=== PATIENT | female | born 1950 | race Caucasian/White ===

== ENCOUNTER 2017-07-16 09:04 | Inpatient (IN) | payer BC ==
[2017-07-16] MEDS ORDERED: NS 0.9% 1000 ML* 1,000 ML IV ONE (09:22)
[2017-07-16] MEDS ORDERED: Aspirin Low Dose CHEW TAB* 81 MG ONE (09:33)
[2017-07-16] MEDS ORDERED: Nitroglycerin TAB 0.4 MG* 0.4 MG TAB ONE (09:33)
[2017-07-16] MEDS ORDERED: VERAPAMIL 2.5 MG/ML 4 ML VIAL ONE (09:34)
[2017-07-16] MEDS ORDERED: Heparin 2 UNITS/ML IVPREMIX* 3,000 ML IV ONE (09:34)
[2017-07-16] MEDS ORDERED: Ticagrelor* 90 MG TAB PO ONE (09:34)
[2017-07-16] MEDS ORDERED: nitroGLYCERIN DRIP* 25,000 MCG/250 ML BTL ONE (09:34)
[2017-07-16] MEDS ORDERED: fentaNYL* 50 MCG/ML 2 ML VIAL (100 MCG VIAL) ONE (09:34)
[2017-07-16] MEDS ORDERED: Heparin(*) 1000 UNIT/ML 10 ML VIAL CATH LAB IV ONE (09:34)
[2017-07-16] MEDS ORDERED: Heparin for STEMI(*) 5,000 UNITS/ML 1 ML VIAL IV ONE ×2 (09:34→09:43)
[2017-07-16 09:35] LABS: Hematocrit 49 % (35-47); Hemoglobin 16.6 g/dl (12.0-16.0); Mean Corpuscular HGB Conc 34 g/dl (31-36); Mean Corpuscular Hemoglobin 31 pg (27-31); Mean Corpuscular Volume 91 fL (80-97); Mean Platelet Volume 9 um3 (7.4-10.4); Platelet Count 371 10^3/ul (150-450); Red Blood Count 5.43 10^6/ul (4.0-5.4); Red Cell Distribution Width 14 % (10.5-15); White Blood Count 25.2 10^3/ul (3.5-10.8)
[2017-07-16] MEDS ORDERED: Lidocaine 1% INJ* 10 MG/ML 30 ML SDV ONE (09:35)
[2017-07-16] MEDS ORDERED: Iohexol 350 (CONTRAST) 200 ML MDV IV ONE (09:35)
[2017-07-16] MEDS ORDERED: Midazolam* 1 MG/ML 10 ML VIAL (10 MG) ONE (09:35)
[2017-07-16] MEDS ORDERED: Aspirin Low Dose CHEW TAB* 81 MG PO ONE (09:42)
[2017-07-16 09:44] LABS: INR 1.07 (0.77-1.02)
[2017-07-16 10:02] LABS: EGFR Non-African American 39.5 (>60)
[2017-07-16] MEDS ORDERED: Iodixanol* (CONTRAST) 320 MG/ML 100 ML SDV ONE ×4 (10:08→12:07)
--- NOTE | 2017-07-16 10:19 | RAD ---
INDICATION: Weakness COMPARISON: May 07, 2017 TECHNIQUE: An AP portable view obtained at 0946 hours is submitted. FINDINGS: Bones/Soft Tissues: There are no acute bony findings. Chest leads project over the chest Cardiomediastinal: The cardiomediastinal silhouette is normal. Lungs: There are no infiltrates. Pleura: There are no pleural effusions. Other: None IMPRESSION: NO ACTIVE DISEASE.
[2017-07-16 10:57] LABS: ABS Basophils 0.1 10^3/ul (0-0.2); ABS Eosinophils 0.1 10^3/ul (0-0.6); ABS Lymphocytes 1.5 10^3/ul (1.0-4.8); ABS Monocytes 2.5 10^3/ul (0-0.8); ABS Nucleated RBC 0 10^3/ul; Eosinophil % 0.3 % (0-6); Lymphocyte % 5.9 % (25-47); Nucleated Red Blood Cells % 0
[2017-07-16] MEDS ORDERED: Metoprolol Tartrate IV* 1 MG/ML 5 ML VIAL ONE (11:34)
[2017-07-16] MEDS ORDERED: Nitroglycerin TAB 0.4 MG* 0.4 MG TAB SL PRN (12:48)
[2017-07-16] MEDS ORDERED: NS 0.9% 1000 ML* 1,000 ML IV SCH (13:00)
[2017-07-16] MEDS ORDERED: Metoprolol Tartrate TAB* 25 MG PO SCH (13:00)
--- NOTE | 2017-07-16 14:03 | ED ---
Archana Camacho Thomas, scribed for David Flores MD on 07/16/17 at 0910 . Complex/Multi-Sys Presentation - HPI Summary HPI Summary: The patient is a 66 year old female presenting to the ED complaining of nausea, vomiting, and fevers that began four days ago. This morning, the patient says I felt so weak I couldnt walk. My knees kept on buckling this morning. She complains of diarrhea that began yesterday. She denies any pain or urinary symptoms. She describes a similar episode in the past that was diagnosed as a UTI. She is accompanied by her son. - History Of Current Complaint Chief Complaint: EDNeurologicalDeficit Hx Obtained From: Patient Onset/Duration: Lasting Days - 4, Still Present Timing: Intermittent, Lasting: Alleviating Factor(s): None Associated Signs And Symptoms: Positive: Other - Nausea, vomiting, fevers, "couldn't walk"; NEGATIVE: pain, urinary symptoms - Allergies/Home Medications Allergies/Adverse Reactions: Allergies Allergy/AdvReac Type Severity Reaction Status Date / Time No Known Allergies Allergy Verified 05/07/17 10:30 Home Medications: Home Medications amLODIPine TAB* [Norvasc 5 mg TAB*] 5 mg PO DAILY 07/16/17 [History Confirmed ] PMH/Surg Hx/FS Hx/Imm Hx Previously Healthy: Yes Endocrine/Hematology History: Denies: Hx Diabetes Cardiovascular History: Denies: Hx Hypertension - Family History Known Family History: Negative: Hypertension, Diabetes - Social History Alcohol Use: None Hx Substance Use: No Substance Use Type: Reports: None Hx Tobacco Use: No Smoking Status (MU): Never Smoked Tobacco Review of Systems Positive: Fever Positive: Vomiting, Diarrhea, Nausea Negative: Other - pain Neurological: Other - "couldn't walk" All Other Systems Reviewed And Are Negative: Yes Physical Exam - Summary Physical Exam Summary: Appearance: The patient is well-nourished in no acute distress and in no acute pain. Skin: The skin is warm and dry and skin color reflects adequate perfusion. HEENT: The head is normocephalic and atraumatic. The pupils are equal and reactive. The conjunctivae are clear and without drainage. Nares are patent and without drainage. Mouth reveals dry mucous membranes and the throat is without erythema and exudate. The external ears are intact. The ear canals are patent and without drainage. The tympanic membranes are intact. Neck: the neck is supple with full range of motion and non-tender. There are no carotid bruits. There is no neck vein distension. Respiratory: Chest is non-tender. Lungs are clear to auscultation and breath sounds are symmetrical and equal. Cardiovascular: Heart is regular rate and rhythm. There is no murmur or rub auscultated. There is no peripheral edema and pulses are symmetrical and equal. Abdomen: The abdomen is soft and non-tender. There are normal bowel sounds heard in all four quadrants and there is no organomegaly palpated. Musculoskeletal: There is no back tenderness noted. Extremities are non-tender with full range of motion. There is good capillary refill. There is no peripheral edema or calf tenderness elicited. Neurological: Patient is alert and oriented to person, place and time. The patient has symmetrical motor strength in all four extremities. Cranial nerves are grossly intact. Deep tendon reflexes are symmetrical and equal in all four extremities. Psychiatric: The patient has an appropriate affect and does not exhibit any anxiety or depression. Triage Information Reviewed: Yes Vital Signs On Initial Exam: Initial Vitals BP 105/73 07/16/17 09:19 Vital Signs Reviewed: Yes Diagnostics - Vital Signs Vital Signs Temp Pulse Resp BP Pulse Ox 07/16/17 13:16 99.5 F 72 16 131/80 96 07/16/17 10:30 98.7 F 84 18 112/78 97 07/16/17 10:22 84 18 112/78 97 07/16/17 10:00 85 16 100 07/16/17 09:20 83 95 07/16/17 09:19 105/73 - Laboratory Lab Results: Lab Results 07/16/17 07/16/17 07/16/17 Range/Units 09:16 09:16 09:16 WBC 25.2 H (3.5-10.8) 10^3/ul RBC 5.43 H (4.0-5.4) 10^6/ul Hgb 16.6 H (12.0-16.0) g/dl Hct 49 H (35-47) % MCV 91 (80-97) fL MCH 31 (27-31) pg MCHC 34 (31-36) g/dl RDW 14 (10.5-15) % Plt Count 371 (150-450) 10^3/ul MPV 9 (7.4-10.4) um3 Neut % (Auto) 83.5 H (38-83) % Lymph % (Auto) 5.9 L (25-47) % King % (Auto) 10.0 H (1-9) % Eos % (Auto) 0.3 (0-6) % Baso % (Auto) 0.3 (0-2) % Absolute Neuts (auto) 21.0 H (1.5-7.7) 10^3/ul Absolute Lymphs (auto) 1.5 (1.0-4.8) 10^3/ul Absolute Monos (auto) 2.5 H (0-0.8) 10^3/ul Absolute Eos (auto) 0.1 (0-0.6) 10^3/ul Absolute Basos (auto) 0.1 (0-0.2) 10^3/ul Absolute Nucleated RBC 0 10^3/ul Nucleated RBC % 0 INR (Anticoag Therapy) 1.07 H (0.77-1.02) APTT (26.0-36.3) seconds Sodium 130 L (133-145) mmol/L Potassium TNP Chloride 95 L (101-111) mmol/L Carbon Dioxide 26 (22-32) mmol/L Anion Gap 9 (2-11) mmol/L BUN 35 H (6-24) mg/dL Creatinine 1.35 H (0.51-0.95) mg/dL Est GFR ( Amer) 50.8 (>60) Est GFR (Non-Af Amer) 39.5 (>60) BUN/Creatinine Ratio 25.9 H (8-20) Glucose 145 H (70-100) mg/dL Lactic Acid (0.5-2.0) mmol/L Calcium 10.5 H (8.6-10.3) mg/dL Total Bilirubin 0.80 (0.2-1.0) mg/dL AST TNP ALT 30 (7-52) U/L Alkaline Phosphatase 108 H (34-104) U/L Total Creatine Kinase 354 H (10-223) U/L CK-MB (CK-2) 17.1 H (0.6-6.3) ng/mL Troponin I 29.81 H* (<0.04) ng/mL C-Reactive Protein 214.34 H (< 5.00) mg/L B-Natriuretic Peptide ( - 100) pg/mL Total Protein 9.0 H (6.4-8.9) g/dL Albumin 4.2 (3.2-5.2) g/dL Globulin 4.8 H (2-4) g/dL Albumin/Globulin Ratio 0.9 L (1-3) LDL Cholesterol Direct 100 mg/dL 07/16/17 07/16/17 07/16/17 Range/Units 09:16 09:16 09:16 WBC (3.5-10.8) 10^3/ul RBC (4.0-5.4) 10^6/ul Hgb (12.0-16.0) g/dl Hct (35-47) % MCV (80-97) fL MCH (27-31) pg MCHC (31-36) g/dl RDW (10.5-15) % Plt Count (150-450) 10^3/ul MPV (7.4-10.4) um3 Neut % (Auto) (38-83) % Lymph % (Auto) (25-47) % King % (Auto) (1-9) % Eos % (Auto) (0-6) % Baso % (Auto) (0-2) % Absolute Neuts (auto) (1.5-7.7) 10^3/ul Absolute Lymphs (auto) (1.0-4.8) 10^3/ul Absolute Monos (auto) (0-0.8) 10^3/ul Absolute Eos (auto) (0-0.6) 10^3/ul Absolute Basos (auto) (0-0.2) 10^3/ul Absolute Nucleated RBC 10^3/ul Nucleated RBC % INR (Anticoag Therapy) (0.77-1.02) APTT 30.1 (26.0-36.3) seconds Sodium (133-145) mmol/L Potassium Chloride (101-111) mmol/L Carbon Dioxide (22-32) mmol/L Anion Gap (2-11) mmol/L BUN (6-24) mg/dL Creatinine (0.51-0.95) mg/dL Est GFR ( Amer) (>60) Est GFR (Non-Af Amer) (>60) BUN/Creatinine Ratio (8-20) Glucose (70-100) mg/dL Lactic Acid 2.0 (0.5-2.0) mmol/L Calcium (8.6-10.3) mg/dL Total Bilirubin (0.2-1.0) mg/dL AST ALT (7-52) U/L Alkaline Phosphatase (34-104) U/L Total Creatine Kinase (10-223) U/L CK-MB (CK-2) (0.6-6.3) ng/mL Troponin I (<0.04) ng/mL C-Reactive Protein (< 5.00) mg/L B-Natriuretic Peptide 189 H ( - 100) pg/mL Total Protein (6.4-8.9) g/dL Albumin (3.2-5.2) g/dL Globulin (2-4) g/dL Albumin/Globulin Ratio (1-3) LDL Cholesterol Direct mg/dL 07/16/17 Range/Units 10:50 WBC (3.5-10.8) 10^3/ul RBC (4.0-5.4) 10^6/ul Hgb (12.0-16.0) g/dl Hct (35-47) % MCV (80-97) fL MCH (27-31) pg MCHC (31-36) g/dl RDW (10.5-15) % Plt Count (150-450) 10^3/ul MPV (7.4-10.4) um3 Neut % (Auto) (38-83) % Lymph % (Auto) (25-47) % King % (Auto) (1-9) % Eos % (Auto) (0-6) % Baso % (Auto) (0-2) % Absolute Neuts (auto) (1.5-7.7) 10^3/ul Absolute Lymphs (auto) (1.0-4.8) 10^3/ul Absolute Monos (auto) (0-0.8) 10^3/ul Absolute Eos (auto) (0-0.6) 10^3/ul Absolute Basos (auto) (0-0.2) 10^3/ul Absolute Nucleated RBC 10^3/ul Nucleated RBC % INR (Anticoag Therapy) (0.77-1.02) APTT (26.0-36.3) seconds Sodium (133-145) mmol/L Potassium 3.5 Chloride (101-111) mmol/L Carbon Dioxide (22-32) mmol/L Anion Gap (2-11) mmol/L BUN (6-24) mg/dL Creatinine (0.51-0.95) mg/dL Est GFR ( Amer) (>60) Est GFR (Non-Af Amer) (>60) BUN/Creatinine Ratio (8-20) Glucose (70-100) mg/dL Lactic Acid (0.5-2.0) mmol/L Calcium (8.6-10.3) mg/dL Total Bilirubin (0.2-1.0) mg/dL AST 41 H ALT (7-52) U/L Alkaline Phosphatase (34-104) U/L Total Creatine Kinase (10-223) U/L CK-MB (CK-2) (0.6-6.3) ng/mL Troponin I (<0.04) ng/mL C-Reactive Protein (< 5.00) mg/L B-Natriuretic Peptide ( - 100) pg/mL Total Protein (6.4-8.9) g/dL Albumin (3.2-5.2) g/dL Globulin (2-4) g/dL Albumin/Globulin Ratio (1-3) LDL Cholesterol Direct mg/dL Result Diagrams: 07/16/17 09:16 07/16/17 10:50 Lab Statement: Any lab studies that have been ordered have been reviewed, and results considered in the medical decision making process. - Radiology CXR Xray Interpretation: No Acute Changes - NO ACTIVE DISEASE. Dr. Flores has reviewed this report. Radiology Interpretation Completed By: Radiologist - Additional Comments Diagnostic Additional Comments: EKG obtained at 09:20. Rate: 84 BPM. Impression: ST elevations with Q-wave formation in inferior and anterolateral leads. Probable acute inferolateral NE. Complex Multi-Symp Course/Dx Course Of Treatment: Ms. Dahl presented with 2-3 days of N/V and fevers. This AM she was so weak that she couldn't walk and had to be helped to the car by her sons. Her exam was unremarkable except that she looked dry and we began the W/U. The ecg revealed ST elevations with q waves inferiorly and also anteriorly to some extent. A STEMI was called and she then admitted to chest discomfort over the weekend. She was taken to the laboratory secretary by Dr. Leblanc. - Diagnoses Provider Diagnoses: STEMI (ST elevation myocardial infarction) - Physician Notifications Discussed Care Of Patient With: Denton Greenwood Time Discussed With Above Provider: 09:35 Instructed by Provider To: Other - Dr. Greenwood, interventional cardiology, came to the ED to assess the patient. I also consulted with Dr. Healy, hospitalist, who admits the patient to [facility] [place]. - Critical Care Time Critical Care Time: 30-74 min Discharge - Discharge Plan Condition: Stable Disposition: ADMITTED TO [facility] The documentation as recorded by the Archana morgan Thomas accurately reflects the service I personally performed and the decisions made by me, David Flores MD.
[2017-07-16 14:25] LABS: Hematocrit 43 % (35-47); Hemoglobin 14.4 g/dl (12.0-16.0); Mean Corpuscular HGB Conc 34 g/dl (31-36); Mean Corpuscular Hemoglobin 30 pg (27-31); Mean Corpuscular Volume 91 fL (80-97); Mean Platelet Volume 8 um3 (7.4-10.4); Platelet Count 328 10^3/ul (150-450); Red Blood Count 4.74 10^6/ul (4.0-5.4); Red Cell Distribution Width 13 % (10.5-15)
[2017-07-16 14:27] LABS: ABS Basophils 0.1 10^3/ul (0-0.2); ABS Eosinophils 0 10^3/ul (0-0.6); ABS Lymphocytes 2.3 10^3/ul (1.0-4.8); ABS Monocytes 2.2 10^3/ul (0-0.8); ABS Neutrophils 18.4 10^3/ul (1.5-7.7); ABS Nucleated RBC 0 10^3/ul; Eosinophil % 0.2 % (0-6); Lymphocyte % 10.1 % (25-47); Nucleated Red Blood Cells % 0.1
[2017-07-16] MEDS ORDERED: Ondansetron INJ* 2 MG/ML VIAL ONE (17:43)
[2017-07-16] MEDS: Atorvastatin* 80 MG TAB PO SCH (18:42)
[2017-07-16] MEDS: Metoprolol Tartrate TAB* 25 MG PO SCH (20:09)
[2017-07-17 00:41] LABS: Urine Appearance Clear; Urine Blood 2+ (Negative); Urine Color Yellow; Urine Ketones Trace (Negative); Urine Protein 1+(30 mg/dL) (Negative); Urine Specific Gravity > 1.060 (1.010-1.030); Urine Urobilinogen Negative (Negative)
[2017-07-17 06:14] LABS: EGFR Non-African American 90.2 (>60)
[2017-07-17] MEDS ORDERED: Lisinopril TAB* 5 MG PO SCH (09:00)
[2017-07-17] MEDS: Metoprolol Tartrate TAB* 25 MG PO SCH ×2 (09:16→20:34)
[2017-07-17] MEDS: Aspirin Low Dose CHEW TAB* 81 MG PO SCH (09:17)
[2017-07-17] MEDS ORDERED: Lisinopril TAB* 5 MG ONE (09:20)
[2017-07-17 09:38] LABS: Hematocrit 39 % (35-47); Hemoglobin 13.1 g/dl (12.0-16.0); Mean Corpuscular HGB Conc 33 g/dl (31-36); Mean Corpuscular Hemoglobin 30 pg (27-31); Mean Corpuscular Volume 91 fL (80-97); Mean Platelet Volume 8 um3 (7.4-10.4); Platelet Count 315 10^3/ul (150-450); Red Blood Count 4.32 10^6/ul (4.0-5.4); Red Cell Distribution Width 13 % (10.5-15); White Blood Count 17.1 10^3/ul (3.5-10.8)
[2017-07-17 09:42] LABS: ABS Basophils 0 10^3/ul (0-0.2); ABS Eosinophils 0.1 10^3/ul (0-0.6); ABS Lymphocytes 1.5 10^3/ul (1.0-4.8); ABS Monocytes 2.1 10^3/ul (0-0.8); ABS Neutrophils 13.4 10^3/ul (1.5-7.7); ABS Nucleated RBC 0 10^3/ul; Eosinophil % 0.4 % (0-6); Lymphocyte % 8.9 % (25-47); Nucleated Red Blood Cells % 0
[2017-07-17] MEDS ORDERED: Potassium Chlor TAB* 20 MEQ TAB.ER PO ONE (10:45)
[2017-07-17] MEDS: Enoxaparin(*) 40 MG/0.4 ML SYR SUBCUT SCH (12:50)
--- NOTE | 2017-07-17 15:34 | CONSULT ---
Consult Consult: CRITICAL CARE FOR MEDICINE CONSULT DATE: 07/17/17 TIME: [id number] PRIMARY CARE PROVIDER: Lamar REFERRING PROVIDER: Krystyna REASON/CHIEF COMPLAINT: persistent wbc post mi; medical management HISTORY OF PRESENT ILLNESS: 66 F presenting post cp on sunday, followed by Right sided weakness, brought in by ambulance on Sunday after son noticed mom leaning to the side sec to weakness. 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 attempts to revasculaize not prudent and optted for medical management. Today, further workup underway for likely cva prior to hospitalization as well. Pt tells me she never really had cp; but thought she may have had a chest cold or the flu. No rhinorhea. cough mild. no flu contacts. REVIEW OF SYSTEMS: As per HPI. PAST MEDICAL HISTORY: As per HPI. HTN. MEDICATIONS: Reviewed. ALLERGIES: Reviewed. SOCIAL HISTORY: Reviewed. works at [employer]. no tob. FAMILY HISTORY: Noncontributory at present. PHYSICAL EXAM: Vital Signs: Reviewed. Neurologic: awake, communicating. left arm 4/5 strength and left leg 3-4/5. further neuro exam defer as neuro just assessed prior. HEENT: anciteric. mmm Cardiovascular: reg, hr up to 90; no m or rub Respiratory: clear Abdomen: soft, nt; no masses Extremities: warm Access: piv LABS: Reviewed. IMAGING: Reviewed. MEDICATIONS: Reviewed. 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 mri being obtain. last known neuro well was Sunday at best. on asa already. neuro workup. consider liliana, especially if MRI pos. d/w pt. Cardiovascular: no cp. perfusing. vol status ok. f/u any post mi syndromes. no signs pericarditis etc but clincal follow. rx adjustments per cards. Respiratory: no consolidation. RA Gastrointestinal: po Renal/Metabolic: stable. Infectious Disease: no seeming infective burden. ua neg. no other pains nor skin breakdown. mild mono shift. no B sx. may be worthwhile to check flu screen but no abx needs present nor further testing at this time other then follow for fever and check wbc tomorrow. Hematology: stbale. anti-plt; anticoag needs per cards/neuro. Endocrine: statin needs. Musculoskeletal: oob. Psych/Social: pt in good spiritis. Supportive and preventative care as ordered. Disposition: ICU today and likely floor tomorrow Code Status: Full Critical Care Time: 35min Dixie Nettles DO
--- NOTE | 2017-07-17 16:22 | HP ---
CC: Dr. Florence Newton* ADMISSION HISTORY AND PHYSICAL: DATE OF ADMISSION: 07/16/17 CHIEF COMPLAINT: The patient presents, brought in by son with weakness, called by emergency room physician for possible STEMI. HISTORY OF PRESENT ILLNESS: The patient is a 66-year-old female with no prior known cardiac history. Specifically, she denies any history of myocardial infarction, congestive heart failure, significant heart rhythm disturbance. The patient states that last week, she had intermittent chest discomfort on and off, feeling somewhat like a pressure feeling, brief in nature until Sunday of last week when she had the symptoms waxing and waning, but constantly present for at least 5 hours if not more. At the end of that and on Sunday, she felt extremely weak, unable to physical get up and about. She did not drink or eat well. On Sunday, she was still weak and on Sunday, when her son saw her, he brought her to the emergency room. They then did an EKG, which showed Q waves in the inferior leads with ST-segment elevation in the inferior leads in V4 through V6 with some reciprocal change in V2. A STEMI alert was called. It should be noted she denied any specific chest, throat, jaw, or arm discomfort at that time. She had no significant shortness of breath or nausea or vomiting. I came to see her and she indeed had the abnormal EKG with persistent ST-segment elevations. An echocardiogram bedside was performed that showed the hypokinesis to the inferoposterior wall that seemed to be not as bad as the diffuse disease on the EKG. Cardiac enzymes revealed a troponin of 29.8 with a total CPK of 354 and an MB of 17. SGOT was 65. Discussion was made regarding the presence of this abnormal EKG with ongoing persistent ST elevation and abnormal cardiac enzymes, and decision was made to proceed with cardiac catheterization to at least define the anatomy to rule out the presence of a critical stenosis with patent flow present versus a total occlusion from a recent infarct. The risks and benefits were explained to her and her son. She understood and wished to proceed. She was given heparin 4000 units bolus in the emergency room and full-dose aspirin. PAST MEDICAL HISTORY: Includes hypertension. She denies any diabetes, hyperlipidemia. ALLERGIES: No known drug allergies. FAMILY HISTORY: She has a family history of mother with an DC in her 50s. SOCIAL HISTORY: She did not smoke. REVIEW OF SYSTEMS: Brief with regard to proceeding emergently to the cardiovascular laboratory included no history of hematochezia, hematemesis, or hematuria. No history of kidney disease. No history of allergy to dye. No recent stroke or TIA. PHYSICAL EXAMINATION VITAL SIGNS: reveal blood pressure 105/73, pulse 80, respirations 16, O2 saturation 100%. HEENT: Conjunctivae were pink. Sclerae clear. Mouth revealed moist mucosa. NECK: Supple without increased JVP. Carotid with good upstroke and volume. There were no bruits or transmitted murmur. LUNGS: Revealed no accessory muscle usage. There were no active rales, rhonchi , or wheezes. HEART: Revealed no visible heaves. No palpable heaves or thrills. Regular rate and rhythm were noted. No significant systolic or diastolic murmur. ABDOMEN: Soft, nontender. EXTREMITIES: Without edema. Femoral pulses were present bilaterally without bruits. Distal pulses were mildly diminished but present. NEURO: The patient is alert, oriented with normal mentation. PSYCHOLOGICAL: The patient with normal affect. DIAGNOSTIC STUDIES/LAB DATA: Laboratory results revealed BUN and creatinine of 35 and 1.35 with a GFR of 50.8, potassium was 3.5, sodium 130. The cardiac enzymes were as mentioned above. White count was 25,000, hemoglobin and hematocrit were 16.6 and 49, platelet count was 371,000. EKG was as mentioned with sinus rhythm, heart rate 84, TN interval 0.16, QRS 0.09, QT 0.38, axis is -48 degrees. There were Q waves in II, III, aVF with some preserved R wave in lead II. There was mild J point elevation in II, III, aVF. Mild ST-segment depression in V2 and mild J point elevation seen in V5 and V6. Chest x-ray revealed the heart size to be normal. No infiltrates noted. No pleural effusion. Echocardiogram suggested regional wall motion abnormalities to the inferior low posterolateral wall with an EF quoted by Dr. Singh of 35% to 40%. There was reported [id number] mitral regurgitation with diastolic dysfunction. She was noted to have septal hypertrophy without increased gradient across the valve. OVERALL ASSESSMENT: Angela presents now, very weak in nature complaining about history of recent chest discomfort albeit none currently today with an EKG with persistent ST-segment elevation and troponin level that is elevated. At this point in time, the risks and benefits were explained to her for proceeding with cardiac catheterization to delineate the anatomy and see the exact nature of her CAD. Further management will be made pending the results of cardiac catheterization. [id number]/[facility] #: [id number] JUAN MANUEL
--- NOTE | 2017-07-17 17:09 | RAD ---
HISTORY: Left-sided weakness and new onset incontinence COMPARISONS: CT of the brain May 07, 2017 that demonstrates evidence of microvascular disease as well as chronic appearing bilateral basal ganglia infarctions. TECHNIQUE: The following sequences were obtained of the head: Sagittal T1-weighted images, axial T2-weighted images, axial FLAIR images, axial susceptibility weighted images, axial T1-weighted images. Additionally, axial diffusion-weighted images were obtained with calculated apparent diffusion coefficients.. FINDINGS: HEMORRHAGE/INFARCT: There is no hemorrhage or acute infarct. MASSES/SHIFT: There is no mass or shift. EXTRA-AXIAL SPACES/MENINGES: There are no extra-axial fluid collections. SULCI AND VENTRICLES: The sulci and ventricles are normal in size and position for the patient's stated age. CEREBRUM: At the right temporal lobe (axial image 13) there is a focal hyperintensity on diffusion-weighted imaging. There are scattered diffusion-weighted image hyperintense subcentimeter foci at the right of midline precentral gyrus. The bilateral occipital lobes as well as scattered in the cortex of the right frontal lobe. Similar to findings on the prior CT of the brain there is subcortical and periventricular T2 bright hyperintensity including 2 large foci at the bilateral basal ganglia without corresponding signal on diffusion-weighted imaging indicating chronic vascular disease. BRAINSTEM: There are no focal parenchymal abnormalities. CEREBELLUM: On the diffusion-weighted imaging there is a punctate hyperintensity in the right cerebellar lobe (axial image 7 of 27). The cerebellar tonsils are normal in size and position. SELLA: The sella is normal. PINEAL: The pineal region is clear. CP ANGLE/TEMPORAL BONES: The labyrinthine structures are grossly normal. VESSELS: Normal flow-voids are noted within the visualized vertebral vasculature. DIFFUSION ABNORMALITIES: There are no diffusion abnormalities. PARANASAL SINUSES/MASTOIDS: The paranasal sinuses are clear. ORBITS: The orbits are unremarkable. BONES AND SOFT TISSUE: No bone or soft tissue abnormalities are noted. IMPRESSION: 1. MRI FINDINGS ARE CONSISTENT WITH ACUTE MULTIFOCAL EMBOLI INVOLVING THE RIGHT CEREBELLUM AND BILATERAL CEREBRAL HEMISPHERES DESCRIBED ABOVE. 2. EVIDENCE OF CHRONIC MICROVASCULAR DISEASE AND BILATERAL BASAL GANGLIA INFARCTIONS ARE ALSO AGAIN NOTED.
--- NOTE | 2017-07-17 18:05 | RAD ---
CPT II Codes: 3100F INDICATION: Cerebrovascular accident COMPARISON: Same day MRI of the brain that shows evidence of bilateral multifocal microemboli. TECHNIQUE: Multiple breaux scale, color and doppler tracings of the common, internal and external carotid and vertebral arteries were obtained. Stenosis estimations reflect velocity criteria that have been correlated to angiographic stenosis calculations based on the distal internal carotid diameter. Right carotid: There is mostly low echogenicity plaque within the right carotid bulb. The peak systolic velocity in the proximal right internal carotid artery is 160 cm/s and the maximum end-diastolic velocity is 68 cm/s. The peak systolic velocity in the distal common carotid artery is 60 cm/s and the maximum end-diastolic velocity is 21 cm/s. The internal to common carotid ratio is 2.41. This would be consistent with a 50-69% stenosis. Left carotid: There is moderate mixed echogenicity plaque within the left carotid bulb. The peak systolic velocity in the proximal right internal carotid artery is 71 cm/s and the maximum end-diastolic velocity is 33 cm/s. The peak systolic velocity in the distal common carotid artery is 70 cm/s and the maximum end-diastolic velocity is 23 cm/s. The internal to common carotid ratio is 1.01. This would be consistent with a less than 50% stenosis. Vertebrals: There is antegrade flow in both vertebral arteries. IMPRESSION: There is a mostly low echogenicity plaque at the bilateral carotid bulbs with flow velocity consistent with 50-60% degree stenosis on the right.
[2017-07-17] MEDS: Atorvastatin* 80 MG TAB PO SCH (18:41)
--- NOTE | 2017-07-17 19:50 | CONS ---
CONSULTATION REPORT: DATE OF CONSULTATION: 07/17/17 LOCATION: Current location is ICU bed 8. ADMITTING PHYSICIAN: Denton Greenwood MD PRIMARY CARE PHYSICIAN: Florence Newton MD OTHER PROVIDER: Herb Carson MD REASON FOR CONSULTATION: Left-sided weakness and new MS. HISTORY OF PRESENT ILLNESS: Ms. Dahl is a 66-year-old female who notes a history of hypertension, but denies a history of hyperlipidemia, diabetes, prior heart attacks or strokes. She was previously on no medications at home. She states to me that the week before admission, she was having some generalized weakness and also some intermittent chest pressure and tightness. She denied any jaw claudication. She denied any left arm pain. The symptoms persisted last week until Sunday when she noted that the chest pain was more persistent in nature. Again, noted a tightness or pressure in her chest. No distinct pain and no left arm or jaw symptoms. On Sunday, she states that she felt more weak, continued to have some chest tightness and pressure and also reports noticing weakness in her left foot. When I pressed her further, she states that she actually had been having weakness in the left leg over the last week. She denied any left arm weakness. She denied any sensory changes in her arms or legs bilaterally. She denied any right-sided findings. She states that she lives with her 2 sons. There was no report of any facial droop. She had no speech changes, swallowing changes. No vision loss or vision changes including double vision. No headaches. She did state over the last few days that she felt like she had the flu with some vomiting and diarrhea, but denied any fevers. She denied any falls, although she states that she was tripping with her left leg weakness when she tried to walk. She denies any back pain or radiating pain in her leg. Per the ER records, she had previously had an episode where she felt very globally weak and apparently was treated for a urinary tract infection at that time. She presented to the ER yesterday initially feeling very weak. It was noted at that time after a lab work was done that she had ST elevations on her EKG with elevated troponin. She was admitted, eventually taken to the director of labor relations by Dr. Greenwood who found no stentable arteries and no intervention was done at that time. Since that time, she states that her chest tightness is better. She continues to have left-sided weakness, but no other new symptoms. She notes to me that she is feeling slightly better today. Lab work done in the ER yesterday did show an elevated white count of 25.2, subsequently improved this morning to 17.1 with a left shift. Initial chemistry indicated a total creatine kinase of 258; CK-MB of 14 ; troponin I of 23.06, which has trended down today to 21.93. Her complete metabolic profile this morning is significant for potassium of 3.3, glucose of 28.8, lactic acid of 106, total bili of 1.10. Her CK-MB this morning of 8.7. She did have a CT of the head done back on 05/07/17. I did personally review the films. 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 I agree with that finding. At that time , she was seen in the ER stating that she had been ambulating slower than usual and also had been leaning to the left. She was treated for urinary tract infection at that time and sent home. PAST MEDICAL HISTORY: As noted above, she denies any history of diabetes, hypercholesterolemia. She does note a history of high blood pressure. She denies any prior strokes. Despite the CT findings, she denies any prior cardiac issues. MEDICATIONS: Medication at home: Amlodipine 5 mg daily. Current medications in the hospital: 1. She is on aspirin 81 mg daily. 2. Lipitor 80 mg daily. 3. Lovenox 40 mg subcutaneous q.24 hours. 4. Lisinopril 2.5 mg daily. 5. Metoprolol 25 mg p.o. b.i.d. 6. Nitroglycerin p.r.n. ALLERGIES: No known drug allergies. FAMILY HISTORY: Negative for diabetes, hypertension, strokes. SOCIAL HISTORY: She denies any tobacco, alcohol, or drug use. 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 REVIEW OF SYSTEMS: Review of systems in 14 organ systems was done. Pertinent positives and negatives as noted above, otherwise negative. PHYSICAL EXAMINATION: Vital Signs: Blood pressure 95/68 to 101/71, heart rate in the 70s to 80s, respiratory rate 16 to 25, O2 sats 96 to 97%. In general, she is a well-nourished, well-developed female. She is thin. She is lying in her hospital bed watching TV. She is pleasant, well dressed, well groomed. HEENT: She is normocephalic/atraumatic. Sclerae are anicteric. Mucous membranes are slightly dry. Oropharynx is clear. Nares are patent. Neck is supple. No thyromegaly. No carotid bruits. No meningismus. Her chest is clear to auscultation bilaterally. Cardiovascular: Regular rate and rhythm. No murmurs appreciated. Abdomen is nontender, nondistended. Extremities: There is no significant clubbing, cyanosis, or edema. Her skin is warm and dry without any significant lesions. On neurologic exam, she is awake, alert, oriented x3. Her speech is fluent. There is no dysarthria. Repetition is intact. Recall of recent and remote events is intact. Vocabulary is intact. Her mood is concerned. Affect mood congruent. Cranial nerves II through XII, pupils are equal, round, and reactive to light, extraocular muscles are intact, visual peoples are full to confrontation. Her facial sensation is intact throughout. She does have mild left nasolabial fold flattening. Otherwise, symmetry in the upper face is preserved. Hearing is intact bilaterally to finger rub. Tongue is midline. Palate raises symmetrically. Sternocleidomastoid and trapezius are both intact and symmetric. Motor Exam: She spontaneously moves all extremities antigravity with 5/5 strength in the right upper and right lower extremities throughout. On the left side, she has 4 +/5 weakness proximally and distally with drift in the upper extremity. She has 4/5 weakness proximally in the left lower extremity, 4+/5 weakness in the left lower extremity distally with drift as well. Tone and bulk are both normal. Sensation is intact to all modalities. She has no neglect. Her reflexes are 1+ and symmetric on the right upper extremity biceps, brachioradialis; 2+ on the left upper extremity biceps, brachioradialis; 1+ at the right patella; trace at the ankle; downgoing Babinski on the right; 2+ patella; 1+ ankle; upgoing Babinski on the left. [id number] and rapid alternating movements were intact on the left, difficult on the right with slow rapid alternating movements. There was no tremor noted either at rest or with movement. Her gait was not tested at this time. LABORATORY DATA: Lab work, as noted above this morning. Complete metabolic profile significant for total bili of 1.10, glucose of 106, BUN and creatinine ratio of 28.8, potassium of 3.3. Her troponins and CKs are trending down. Her LDL cholesterol on admission of 100. Prior TSH of 2.81 in May 2017. IMAGING: No brain imaging has been done at this point. She had an echocardiogram done yesterday. Report was reviewed. Conclusions: Multiple regional wall motion abnormalities, the estimated ejection fraction is 35% to 40 %, hyperdynamic anterior and anteroseptal segments, hypokinetic posterior and posterolateral segments, severely hypokinetic to dyskinetic segments of the inferior wall, abnormal left ventricular diastolic filling is observed consistent with impaired relaxation, there is mild to moderate mitral regurg, chordal systolic anterior motion is visualized, the right ventricular global systolic function is mildly reduced, the estimated ejection fraction is 35 to 40 %. ASSESSMENT AND PLAN: Ms. Dahl is a 66-year-old female with a known history of hypertension, on amlodipine at home. Denies a history of diabetes, hypercholesterolemia, prior heart attacks or strokes, although review of her previous CT from May 2017 seems to show some chronic strokes of which the patient was unaware. Interestingly, the patient was seen in the ER back in May 2017. At that time, she was "leaning to the left more." She came to the hospital yesterday after developing some chest pain last week, which became more persistent last Sunday. Sunday, she noted generalized weakness, but felt more weak on the left, but on further questioning states that she felt weak on the left side throughout the week prior. She subsequently underwent cardiac catheterization, but there were no stentable arteries and no intervention was done. Since that time, she has been started on aspirin and statin. On examination, she does have focal left-sided findings that are suggestive of a stroke. Whether or not this is a new stroke or old stroke given her prior history from May is unclear to me. She notes some generalized weakness and left-sided weakness. It is unclear how long this left- sided weakness has been ongoing. She certainly could have a masking of old symptoms from a prior stroke, but given the acute presentation, I worry about a new stroke. I recommend the followin. Continue aspirin 81 mg daily. 2. We will obtain an MRI of the brain without contrast to look for evidence of new stroke. 3. Carotid ultrasound at this point. She had a cardiac catheterization with dye yesterday, so I do not want to get a CT angiogram today, we can consider one tomorrow. 4. Blood pressure control per Cardiology. 5. Cholesterol control. Goal LDL less than 70. She is now on statin. 6. No evidence of diabetes. 7. Nonsmoker. 8. Once she is stable from a cardiac perspective, we can start physical therapy , occupational therapy, and rehab as necessary. 9. Continue to monitor on telemetry. She has no history of atrial fibrillation , but we will watch for any arrhythmias, which could ultimately change coordinator down the line. I will continue to follow her closely and make further recommendations as necessary. Thank you for the opportunity to participate in the care of this patient. I did speak directly with Dr. Greenwood about my findings in the case. [id number]/[facility] #: [id number] JUAN MANUEL
[2017-07-18 06:23] LABS: ABS Basophils 0.1 10^3/ul (0-0.2); ABS Eosinophils 0.1 10^3/ul (0-0.6); ABS Monocytes 1.5 10^3/ul (0-0.8); ABS Neutrophils 8.3 10^3/ul (1.5-7.7); ABS Nucleated RBC 0 10^3/ul; Hematocrit 36 % (35-47); Hemoglobin 11.9 g/dl (12.0-16.0); Lymphocyte % 16.5 % (25-47); Mean Corpuscular HGB Conc 33 g/dl (31-36); Mean Corpuscular Hemoglobin 30 pg (27-31); Mean Corpuscular Volume 93 fL (80-97); Mean Platelet Volume 8 um3 (7.4-10.4); Nucleated Red Blood Cells % 0; Platelet Count 327 10^3/ul (150-450); Red Blood Count 3.92 10^6/ul (4.0-5.4); Red Cell Distribution Width 13 % (10.5-15)
[2017-07-18 06:38] LABS: EGFR Non-African American 93.4 (>60)
[2017-07-18] MEDS: Aspirin Low Dose CHEW TAB* 81 MG PO SCH (08:46)
[2017-07-18] MEDS: Metoprolol Tartrate TAB* 25 MG PO SCH ×2 (08:46→21:13)
--- NOTE | 2017-07-18 09:09 | PN ---
Subjective Date of Service: 07/18/17 Interval History: Overnight, no new issues. She denies any new weakness, remains somewhat weak in the left lower greater than upper extremity. Denies any problems swallowing or speaking. STUDIES: 1. MRI Brain: I personally reviewed MRI findings which show bilateral embolic small strokes in the right cerebellum and bilateral hemispheres 2. Cartotid U/S shows low ecjhogenic plaque at bilateral bulbs and stenosis in 50-60 range on the right Objective Active Medications: Aspirin (Aspirin Low Dose Tab*) 81 mg PO DAILY [facility] Last Admin: 07/18/17 08:46 Dose: 81 mg Atorvastatin Calcium (Lipitor*) 80 mg PO 1700 [facility] Last Admin: 07/17/17 18:41 Dose: 80 mg Enoxaparin Sodium (Lovenox(*)) 40 mg SUBCUT Q24H [facility] Last Admin: 07/17/17 12:50 Dose: 40 mg Metoprolol Tartrate (Lopressor Tab*) 25 mg PO BID [facility] Last Admin: 07/18/17 08:46 Dose: 25 mg Nitroglycerin (Nitroglycerin Tab 0.4 Mg*) 0.4 mg SL Q5M PRN PRN Reason: ANGINA Vital Signs 07/17/17 07/17/17 07/17/17 09:30 10:00 10:01 Temperature Pulse Rate 89 77 82 Respiratory 13 15 Rate Blood Pressure 139/82 109/77 (mmHg) O2 Sat by Pulse 96 95 95 Oximetry 07/17/17 07/17/17 07/17/17 10:30 11:00 11:01 Temperature Pulse Rate 77 76 76 Respiratory 15 17 14 Rate Blood Pressure 102/69 105/73 (mmHg) O2 Sat by Pulse 96 96 96 Oximetry 07/17/17 07/17/17 07/17/17 11:25 11:30 12:00 Temperature 99.2 F Pulse Rate 85 80 Respiratory 27 16 Rate Blood Pressure 110/71 105/73 (mmHg) O2 Sat by Pulse 96 98 Oximetry 07/17/17 07/17/17 07/17/17 12:01 12:30 13:00 Temperature Pulse Rate 84 76 76 Respiratory 21 22 19 Rate Blood Pressure 104/72 104/73 (mmHg) O2 Sat by Pulse 97 97 97 Oximetry 07/17/17 07/17/17 07/17/17 13:01 13:30 14:00 Temperature Pulse Rate 77 76 83 Respiratory 16 25 20 Rate Blood Pressure 95/68 101/71 (mmHg) O2 Sat by Pulse 97 96 97 Oximetry 07/17/17 07/17/17 07/17/17 14:01 14:30 15:00 Temperature Pulse Rate 86 84 85 Respiratory 20 19 16 Rate Blood Pressure 107/71 101/67 (mmHg) O2 Sat by Pulse 97 96 97 Oximetry 07/17/17 07/17/17 07/17/17 15:01 15:30 17:00 Temperature Pulse Rate 84 93 Respiratory 17 20 19 Rate Blood Pressure 116/75 (mmHg) O2 Sat by Pulse 97 98 Oximetry 07/17/17 07/17/17 07/17/17 17:09 17:10 17:30 Temperature Pulse Rate 85 Respiratory 18 18 15 Rate Blood Pressure 98/71 119/75 (mmHg) O2 Sat by Pulse 96 Oximetry 07/17/17 07/17/17 07/17/17 18:00 18:01 18:30 Temperature Pulse Rate 88 86 98 Respiratory 20 15 17 Rate Blood Pressure 102/70 118/69 (mmHg) O2 Sat by Pulse 97 96 95 Oximetry 07/17/17 07/17/17 07/17/17 19:00 19:01 19:30 Temperature Pulse Rate 102 106 102 Respiratory 20 15 16 Rate Blood Pressure 94/63 101/59 (mmHg) O2 Sat by Pulse 96 96 97 Oximetry 07/17/17 07/17/17 07/17/17 20:00 20:01 20:30 Temperature 99.1 F Pulse Rate 93 99 98 Respiratory 15 20 8 Rate Blood Pressure 93/64 110/71 (mmHg) O2 Sat by Pulse 95 96 97 Oximetry 07/17/17 07/17/17 07/17/17 21:00 21:01 21:30 Temperature Pulse Rate 96 93 90 Respiratory 17 15 16 Rate Blood Pressure 94/68 110/71 (mmHg) O2 Sat by Pulse 95 95 96 Oximetry 07/17/17 07/17/17 07/17/17 22:00 22:01 22:27 Temperature Pulse Rate 94 89 87 Respiratory 15 16 16 Rate Blood Pressure 111/74 (mmHg) O2 Sat by Pulse 96 96 95 Oximetry 07/17/17 07/17/17 07/17/17 22:30 23:00 23:01 Temperature Pulse Rate 90 80 79 Respiratory 16 17 16 Rate Blood Pressure 95/66 88/62 (mmHg) O2 Sat by Pulse 97 94 95 Oximetry 07/17/17 07/17/17 07/18/17 23:30 23:58 00:00 Temperature 100.7 F Pulse Rate 91 81 Respiratory 19 13 Rate Blood Pressure 93/56 92/65 (mmHg) O2 Sat by Pulse 97 95 Oximetry 07/18/17 07/18/17 07/18/17 00:01 00:30 01:00 Temperature Pulse Rate 81 82 76 Respiratory 13 13 11 Rate Blood Pressure 111/73 102/72 (mmHg) O2 Sat by Pulse 95 96 95 Oximetry 07/18/17 07/18/17 07/18/17 01:01 01:30 02:00 Temperature Pulse Rate 81 79 77 Respiratory 10 13 13 Rate Blood Pressure 111/72 89/59 (mmHg) O2 Sat by Pulse 95 95 94 Oximetry 07/18/17 07/18/17 07/18/17 02:01 02:30 03:00 Temperature Pulse Rate 74 82 71 Respiratory 14 15 8 Rate Blood Pressure 109/83 104/69 (mmHg) O2 Sat by Pulse 94 96 97 Oximetry 07/18/17 07/18/17 07/18/17 03:01 03:30 04:00 Temperature 99.2 F Pulse Rate 74 76 73 Respiratory 9 9 15 Rate Blood Pressure 119/78 114/70 (mmHg) O2 Sat by Pulse 95 97 96 Oximetry 07/18/17 07/18/17 07/18/17 04:01 04:30 05:00 Temperature Pulse Rate 71 67 64 Respiratory 17 14 11 Rate Blood Pressure 101/65 119/68 (mmHg) O2 Sat by Pulse 96 95 97 Oximetry 07/18/17 07/18/17 07/18/17 05:01 05:30 06:00 Temperature Pulse Rate 67 73 86 Respiratory 13 15 24 Rate Blood Pressure 112/70 103/67 (mmHg) O2 Sat by Pulse 96 95 96 Oximetry 07/18/17 07/18/17 07/18/17 06:01 06:12 06:31 Temperature Pulse Rate 75 72 Respiratory 22 14 10 Rate Blood Pressure 80/53 (mmHg) O2 Sat by Pulse 95 93 Oximetry 07/18/17 07/18/17 07/18/17 06:33 07:00 07:01 Temperature Pulse Rate 75 76 81 Respiratory 17 12 14 Rate Blood Pressure 114/71 110/72 (mmHg) O2 Sat by Pulse 96 95 95 Oximetry 07/18/17 07/18/17 07/18/17 07:30 07:59 08:00 Temperature 99.0 F Pulse Rate 76 75 Respiratory 12 17 Rate Blood Pressure 115/76 117/73 (mmHg) O2 Sat by Pulse 96 97 Oximetry 07/18/17 07/18/17 07/18/17 08:01 08:30 09:00 Temperature Pulse Rate 74 77 Respiratory 15 16 15 Rate Blood Pressure 124/75 (mmHg) O2 Sat by Pulse 97 96 Oximetry Oxygen Devices in Use Now: None Neurology Exam: General: Awake, Pleasant disposition HEENT: Normocephelic/atraumstic, sclera anicteric, mucous membranes moist Neck: Supple, no bruits bilaterally Chest: Clear to auscultation bilaterally Cardiovascular: Regular rate and rhythm without murmurs, rubs, gallops Abdomen: Soft, nontender/nondistended Extremities: No clubing, cyanosis, or edema Neurological Findings: Awake, Alert, Oriented x3 Speech: fluent without dysarthric, repetition intact Cranial Nerve: PEERL, EOM intact, VFF, no nystagmus, left lower facial droop, weak smile on the left with flattening of NLF, facial sensation intact, hearing intact to finger rub bilaterally, palate elevates symmetrically, tongue midline , SCM and Trapezius 5/5. Motor: 5/5 right upper extremity throughout, 4+/5 proximal and distal left upper extremity with drift 5/5 right lower extremity throughout with mild drift after 5-6 seconds, 4+/5 proximally and 5/5 distally left lower extremity with drift Sensation: intact to LT/PP bilaterally upper and lower extremities, no neglect bilaterally Finger to nose, rapid alternating movements intact but slower on the left without tremor, no dysdiadochokinesia Result Diagrams: 07/19/17 04:15 07/19/17 04:15 Additional Lab and Data: Lab Results 07/16/17 07/16/17 07/16/17 Range/Units 09:16 09:16 09:16 WBC 25.2 H (3.5-10.8) 10^3/ul RBC 5.43 H (4.0-5.4) 10^6/ul Hgb 16.6 H (12.0-16.0) g/dl Hct 49 H (35-47) % MCV 91 (80-97) fL MCH 31 (27-31) pg MCHC 34 (31-36) g/dl RDW 14 (10.5-15) % Plt Count 371 (150-450) 10^3/ul MPV 9 (7.4-10.4) um3 Neut % (Auto) 83.5 H (38-83) % Lymph % (Auto) 5.9 L (25-47) % Wilkinson % (Auto) 10.0 H (1-9) % Eos % (Auto) 0.3 (0-6) % Baso % (Auto) 0.3 (0-2) % Absolute Neuts (auto) 21.0 H (1.5-7.7) 10^3/ul Absolute Lymphs (auto) 1.5 (1.0-4.8) 10^3/ul Absolute Monos (auto) 2.5 H (0-0.8) 10^3/ul Absolute Eos (auto) 0.1 (0-0.6) 10^3/ul Absolute Basos (auto) 0.1 (0-0.2) 10^3/ul Absolute Nucleated RBC 0 10^3/ul Nucleated RBC % 0 INR (Anticoag Therapy) 1.07 H (0.77-1.02) APTT (26.0-36.3) seconds Sodium 130 L (133-145) mmol/L Potassium TNP Chloride 95 L (101-111) mmol/L Carbon Dioxide 26 (22-32) mmol/L Anion Gap 9 (2-11) mmol/L BUN 35 H (6-24) mg/dL Creatinine 1.35 H (0.51-0.95) mg/dL Est GFR ( Amer) 50.8 (>60) Est GFR (Non-Af Amer) 39.5 (>60) BUN/Creatinine Ratio 25.9 H (8-20) Glucose 145 H (70-100) mg/dL Lactic Acid (0.5-2.0) mmol/L Calcium 10.5 H (8.6-10.3) mg/dL Total Bilirubin 0.80 (0.2-1.0) mg/dL AST TNP ALT 30 (7-52) U/L Alkaline Phosphatase 108 H (34-104) U/L Total Creatine Kinase 354 H (10-223) U/L CK-MB (CK-2) 17.1 H (0.6-6.3) ng/mL Troponin I 29.81 H* (<0.04) ng/mL C-Reactive Protein 214.34 H (< 5.00) mg/L B-Natriuretic Peptide ( - 100) pg/mL Total Protein 9.0 H (6.4-8.9) g/dL Albumin 4.2 (3.2-5.2) g/dL Globulin 4.8 H (2-4) g/dL Albumin/Globulin Ratio 0.9 L (1-3) LDL Cholesterol Direct 100 mg/dL 07/16/17 07/16/17 07/16/17 Range/Units 09:16 09:16 09:16 WBC (3.5-10.8) 10^3/ul RBC (4.0-5.4) 10^6/ul Hgb (12.0-16.0) g/dl Hct (35-47) % MCV (80-97) fL MCH (27-31) pg MCHC (31-36) g/dl RDW (10.5-15) % Plt Count (150-450) 10^3/ul MPV (7.4-10.4) um3 Neut % (Auto) (38-83) % Lymph % (Auto) (25-47) % Wilkinson % (Auto) (1-9) % Eos % (Auto) (0-6) % Baso % (Auto) (0-2) % Absolute Neuts (auto) (1.5-7.7) 10^3/ul Absolute Lymphs (auto) (1.0-4.8) 10^3/ul Absolute Monos (auto) (0-0.8) 10^3/ul Absolute Eos (auto) (0-0.6) 10^3/ul Absolute Basos (auto) (0-0.2) 10^3/ul Absolute Nucleated RBC 10^3/ul Nucleated RBC % INR (Anticoag Therapy) (0.77-1.02) APTT 30.1 (26.0-36.3) seconds Sodium (133-145) mmol/L Potassium Chloride (101-111) mmol/L Carbon Dioxide (22-32) mmol/L Anion Gap (2-11) mmol/L BUN (6-24) mg/dL Creatinine (0.51-0.95) mg/dL Est GFR ( Amer) (>60) Est GFR (Non-Af Amer) (>60) BUN/Creatinine Ratio (8-20) Glucose (70-100) mg/dL Lactic Acid 2.0 (0.5-2.0) mmol/L Calcium (8.6-10.3) mg/dL Total Bilirubin (0.2-1.0) mg/dL AST ALT (7-52) U/L Alkaline Phosphatase (34-104) U/L Total Creatine Kinase (10-223) U/L CK-MB (CK-2) (0.6-6.3) ng/mL Troponin I (<0.04) ng/mL C-Reactive Protein (< 5.00) mg/L B-Natriuretic Peptide 189 H ( - 100) pg/mL Total Protein (6.4-8.9) g/dL Albumin (3.2-5.2) g/dL Globulin (2-4) g/dL Albumin/Globulin Ratio (1-3) LDL Cholesterol Direct mg/dL 07/16/17 Range/Units 10:50 WBC (3.5-10.8) 10^3/ul RBC (4.0-5.4) 10^6/ul Hgb (12.0-16.0) g/dl Hct (35-47) % MCV (80-97) fL MCH (27-31) pg MCHC (31-36) g/dl RDW (10.5-15) % Plt Count (150-450) 10^3/ul MPV (7.4-10.4) um3 Neut % (Auto) (38-83) % Lymph % (Auto) (25-47) % Wilkinson % (Auto) (1-9) % Eos % (Auto) (0-6) % Baso % (Auto) (0-2) % Absolute Neuts (auto) (1.5-7.7) 10^3/ul Absolute Lymphs (auto) (1.0-4.8) 10^3/ul Absolute Monos (auto) (0-0.8) 10^3/ul Absolute Eos (auto) (0-0.6) 10^3/ul Absolute Basos (auto) (0-0.2) 10^3/ul Absolute Nucleated RBC 10^3/ul Nucleated RBC % INR (Anticoag Therapy) (0.77-1.02) APTT (26.0-36.3) seconds Sodium (133-145) mmol/L Potassium 3.5 Chloride (101-111) mmol/L Carbon Dioxide (22-32) mmol/L Anion Gap (2-11) mmol/L BUN (6-24) mg/dL Creatinine (0.51-0.95) mg/dL Est GFR ( Amer) (>60) Est GFR (Non-Af Amer) (>60) BUN/Creatinine Ratio (8-20) Glucose (70-100) mg/dL Lactic Acid (0.5-2.0) mmol/L Calcium (8.6-10.3) mg/dL Total Bilirubin (0.2-1.0) mg/dL AST 41 H ALT (7-52) U/L Alkaline Phosphatase (34-104) U/L Total Creatine Kinase (10-223) U/L CK-MB (CK-2) (0.6-6.3) ng/mL Troponin I (<0.04) ng/mL C-Reactive Protein (< 5.00) mg/L B-Natriuretic Peptide ( - 100) pg/mL Total Protein (6.4-8.9) g/dL Albumin (3.2-5.2) g/dL Globulin (2-4) g/dL Albumin/Globulin Ratio (1-3) LDL Cholesterol Direct mg/dL Microbiology and Other Data: Microbiology 07/17/17 17:53 Influenza Types A,B Antigen (JOEY) - Final Nasal Specimen received for Influenza A/B Molecular testing 07/16/17 15:30 Aerobic Blood Culture - Preliminary Blood Venous No Growth Day 1 Anaerobic Blood Culture - Preliminary No Growth Day 1 07/16/17 14:00 Aerobic Blood Culture - Preliminary Blood Venous No Growth Day 1 Anaerobic Blood Culture - Preliminary No Growth Day 1 07/17/17 06:10 Group A Streptococcus Rapid Screen - Final Throat Specimen received for Rapid Strep A Molecular testing Assessment/Plan 66 year old with recent HI, generalized weakness with left side greater than right side. Patient now tells me that left sided weakness started in the later part of last week but was seen in the ER in May 2017 leaning to the left and weak. She has multiple, small embolic strokes in multiple vascular territories. 1. I spoke with Cardiology this am. Will repeat Echocardiogram to look for any evidence of PFO or thrombus 2. Plan for CTA today to look for source of emboli. Carotid U/S shows plaques at the bulbs with 50-60% stenosis on the right. 3. Continue ASA, Statin 4. BP control per Cardiology 5. Activity per Cardiology recommendations 6. No evidence of A.fib on telemetry 7. Check ESR, CRP, BRUNA, C3, C4, ANCA to look for vasculitis
[2017-07-18] MEDS ORDERED: Iohexol 350* (CONTRAST) 500 ML MDV IV ONE (09:49)
--- NOTE | 2017-07-18 10:45 | RAD ---
HISTORY: Embolic stroke COMPARISONS: MRI dated July 17, 2017 TECHNIQUE: Multiple contiguous axial CT scans were obtained of the head before and after, and of the neck After the administration of nonionic intravenous contrast timed to the systemic arterial phase of contrast enhancement. Coronal and sagittal multiplanar reformations are submitted for review. Multiple 3-D maximum intensity projection reconstructions are also submitted for review. FINDINGS: CTA NECK: AORTIC ARCH: There is a normal three-vessel branching pattern of the aortic arch. There is no ostial or proximal stenosis of the cephalic great vessels. RIGHT VERTEBRAL ARTERY: The right vertebral artery is patent along its course, without stenosis. LEFT VERTEBRAL ARTERY: The left vertebral artery is patent along its course, without stenosis. There is an aortic origin of the left vertebral artery. DOMINANCE: The vertebral arteries are codominant. RIGHT COMMON CAROTID ARTERY: The right common carotid artery is patent. The right carotid bifurcation occurs at C5-C6 RIGHT INTERNAL CAROTID ARTERY: There is atheromatous disease of the right carotid bifurcation, with approximately 30% short segment stenosis of the right internal carotid artery. The proximal internal carotid artery is patulous which May reflect previous endarterectomy. RIGHT EXTERNAL CAROTID ARTERY: The right external carotid artery is unremarkable. LEFT COMMON CAROTID ARTERY: The left common carotid artery is patent. The left carotid bifurcation occurs at C6-C7. LEFT INTERNAL CAROTID ARTERY: There is atheromatous disease of the left carotid bifurcation, without left internal carotid artery stenosis by NASCET criteria. LEFT EXTERNAL CAROTID ARTERY: The left external carotid artery is unremarkable. VENOUS CIRCULATION: The venous system is unremarkable. SALIVARY GLANDS: The parotid glands, submandibular glands, sublingual glands are normal. NASAL CAVITY/NASOPHARYNX: The nasal cavity and nasopharynx are normal. ORAL CAVITY/OROPHARYNX: The oral cavity and oropharynx are unremarkable. LARYNGEAL APPARATUS/HYPOPHARYNX: The laryngeal apparatus and hypopharynx are normal. UPPER AIRWAY/UPPER ESOPHAGUS: The visualized upper airway and esophagus are normal. LUNG APICES: The lung apices are clear. THYROID GLAND: The thyroid gland is normal. LYMPH NODES: There is no lymphadenopathy by size criteria. BONES AND SOFT TISSUES: No bone or soft tissue abnormalities are noted. CTA HEAD: INTRACRANIAL CIRCULATION: There is no aneurysm, vascular malformation, occlusion, or stenosis of the visualized intracranial circulation. The anterior communicating artery complex is clear. Bilateral posterior communicating arteries are identified. There is calcification of the cavernous segments of the internal carotid arteries bilaterally VENOUS CIRCULATION: The venous system is unremarkable. PERFUSION: There is no obvious parenchymal perfusion deficit. HEMORRHAGE/INFARCT: There is no hemorrhage or acute infarct. MASSES/SHIFT: There is no mass or shift. EXTRA-AXIAL SPACES: There are no extra-axial fluid collections. SULCI AND VENTRICLES: The sulci and ventricles are normal in size and position for the patient's stated age. CEREBRUM: There is hypoattenuation of the periventricular and subcortical white matter. BRAINSTEM: There are no focal parenchymal abnormalities. CEREBELLUM: There are no focal parenchymal abnormalities. PARANASAL SINUSES: The paranasal sinuses are clear. ORBITS: The orbits are unremarkable. BONES AND SOFT TISSUE: Degenerative changes are noted of the cervical spine OTHER: There is no abnormal enhancement. IMPRESSION: 1. ATHEROSCLEROSIS. 2. APPROXIMATELY 30% RIGHT INTERNAL CAROTID ARTERY STENOSIS BY NASCET CRITERIA. NO LEFT INTERNAL CAROTID ARTERY STENOSIS BY NASCET CRITERIA. 3. NO ANEURYSM, VASCULAR MALFORMATION, OCCLUSION, OR STENOSIS OF THE VISUALIZED INTRACRANIAL CIRCULATION. 4. CHRONIC SMALL VESSEL ISCHEMIC CHANGES WITH MULTIPLE CHRONIC APPEARING INFARCTS. CPT II Codes: 3100F
--- NOTE | 2017-07-18 10:58 | PN ---
Progress Note - Progress Note Date of Service: 07/18/17 Note: CRITICAL CARE FOR MEDICINE CONSULT DATE: 07/18/17 TIME: 925 SUBJECTIVE: Patient seen and examined. Doing well otherwise. PHYSICAL EXAM: Vital Signs: Reviewed. Neurologic: awake, communicating. left arm and leg still weaker then R HEENT: anciteric. mmm Cardiovascular: reg, no m or rub Respiratory: clear Abdomen: soft, nt; no masses Extremities: warm Access: piv LABS: Reviewed. IMAGING: Reviewed. MEDICATIONS: Reviewed. ASSESSMENT: 66 F Q-wave IA on admission to shower emboli CVA with mild hemiparesis on left Leukocytosis - improving HTN PLAN: Neurologic: neuro following and risk factor modification and ultimate anticoag needs. pt Cardiovascular: perfusing. vol status ok. cards following and risk factor modification, rx. ?liliana needs Respiratory: no consolidation. RA Gastrointestinal: po Renal/Metabolic: stable. Infectious Disease: no infective burden. flu neg. wbc trending down post inflammation. Hematology: stbale. anti-plt; anticoag needs per cards/neuro. Endocrine: statin. Musculoskeletal: oob. pt Psych/Social: pt in good spirits. Supportive and preventative care as ordered. Disposition: floor with tele Code Status: Full Critical Care Time: 25min Dixie Nettles DO
[2017-07-18] MEDS: Enoxaparin(*) 40 MG/0.4 ML SYR SUBCUT SCH (11:39)
--- NOTE | 2017-07-18 13:07 | ECHO ---
Patient: LIGIA JADE [facility] Rec#: [id number] : 1950 Date: 07/18/2017 Age: 66y Height: 165 cm / 65.0 in Weight: 58.6 kg / 129.2 lbs Sex: F BSA: 1.64 Room#: [facility] Admit Date#: 07/16/2017 Type: Inpatient Referring: Denton Greenwood MD Reading: Smita Duran MD Ms Sql Developer: Lottie DaleSHIVA CC: Florence Newton MD Transthoracic Echocardiogram Indication: CVA, STEMI BP: 103/67 HR: 74 Rhythm: NSR Findings History: HTN, ME, right sided weakness, cardiac cath. 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 This is a LIMITED study to perform a bubble study and reassess LV function. Technical Comments: The study quality is fair. The study is technically limited due to poor parasternal windows. Completed at 0930. Left Ventricle: The left ventricular chamber size is normal. There is a focal wall motion abnormality present.the inferior/posterior and lateral wall is hypo to akinetic at the base. There is mild to moderately decreased left ventricular systolic function. The estimated ejection fraction is 45-50%. Right Ventricle: The right ventricular cavity size is normal. The right ventricular global systolic function is normal. Right Atrium: Interatrial septum appears intact without evidence of shunting. The bubble study is negative. A patent foramen ovale is not demonstrated with color Doppler and agitated contrast. Contrast: Normal saline was used as contrast for the bubble study. Images 3 and 4. Intravenous contrast was used to help determine presence of intracardiac shunting. Conclusions This is a LIMITED study to perform a bubble study and reassess LV function. No evaluation for diastolic function performed. The inferior/posterior and lateral gifford are hypo to akinetic at the base, all other areas show normal contractility. There is mild to moderately decreased left ventricular systolic function. The estimated ejection fraction is 45%. The right ventricular global systolic function is normal. The bubble study is negative, no evidence of intracardiac shunting by color Doppler and no bubbles crossed. Negative contrast seen. AV sclerosis and MAC noted. Compared with prior complete echo of 07/16/17, area of hypo/akinsis noted, but EF has improved from 35/40%. RV function now normal.
[2017-07-18] MEDS: Atorvastatin* 80 MG TAB PO SCH (17:11)
--- NOTE | 2017-07-19 02:32 | CATH ---
CC: Florence Newton MD CARDIAC CATHETERIZATION REPORT: DATE OF PROCEDURE: 07/16/17 INDICATION FOR PROCEDURE: The patient presents with an EKG demonstrating acute ST segment elevation in the inferior and apical leads with reciprocal changes in the anterior leads with abnormal troponin suggesting myocardial infarction, exact timing of which is in question with generalized fatigue. PROCEDURE: Coronary arteriography, left heart catheterization, attempted probe of totally occluded obtuse marginal branch. The patient was intubated and examined in the emergency room where the risks and benefits were explained. She understood them and wished to proceed. The patient had received 4000 units of heparin in the emergency room and full dose aspirin. She was prepped and draped in a sterile fashion. Approach used was femoral artery approach. Sheath used was a 6.5 Kosovan Merit sheath. DIAGNOSTIC CORONARY CATHETERS: Included a Adam 4 5-Kosovan catheter. The right coronary artery was eventually cannulated with AL1 5-Kosovan diagnostic left coronary catheter. Equipment for approach for intervention: Guiding catheter was a 6-Kosovan VL 3.5 curve left coronary guide catheter. Additional heparin therapy was given to maintain ACT in guideline range throughout the case. Guidewire attempted was initially a BMW in addition to an All Star and Whisper wire utilizing an over-the- wire Emerge balloon for support. At the end of the case, injection was made into the right femoral sheath to assess eligibility to utilize closure device. It was found not to be acceptable for this and as such, the sheath was sutured in place and a pressure bag was placed to it and the patient was transported to the intensive care unit. The patient did receive 180 mg of Brilinta p.o. prior to attempting guidewire probing of the totally occluded first obtuse marginal branch. The patient also had received additional heparin therapy as mentioned earlier, guided by ACT results to maintain anticoagulation. RESULTS: HEMODYNAMIC DATA: Left heart catheterization: Central aortic pressure was recorded at 157/81 with a mean of 112, left ventricular pressure of 154 with a left ventricular end diastolic pressure of 16. CORONARY ARTERIOGRAPHY: A. Left coronary artery: 1. Left main - short in nature with no significant stenosis. 2. Left anterior descending artery - the anterior descending artery supplied first and second intermediate size diagonal branches. The mid portion of the left anterior descending artery appeared to have a narrowing of approximately 35%. The artery continued on to the inferior surface of the heart. 3. Circumflex artery - a dominant vessel supplying a first obtuse marginal branch followed by smaller caliber second to third obtuse marginal branches and ending in a small caliber left-sided posterior descending artery. The first obtuse marginal branch was totally occluded a short distance into its origin and felt to be the culprit vessel. After the third thin obtuse marginal branch leading eventually to the left-sided PDA, there was a stenosis that was approximately 60% in a small caliber vessel that appeared to be less than 1.7 mm. B. Right coronary artery - A nondominant vessel supplying 2 acute marginal branches to the RV surface. Attempts were made to probe the totally occluded obtuse marginal branch with the decision made to not proceed suggesting that most likely this was a possibly subacute event. OVERALL ASSESSMENT: The patient with significant coronary artery disease involving a totally occluded first obtuse marginal branch, most likely the culprit vessel involving the myocardial infarction to the posterior inferior wall with continuation to a very small caliber left-sided PDA with a 60% blockage. The right coronary artery is a nondominant vessel and the LAD does not have significant disease. Medical management will be pursued at this point in time with aspirin therapy and beta-luma therapy and statin therapy. A dual antiplatelet agent will not be utilized in her care given the fact that no stent was placed. [id number]/[facility] #: [id number] MED[facility] HEALTH NETWORKKassi
[2017-07-19 04:50] LABS: ABS Basophils 0.1 10^3/ul (0-0.2); ABS Eosinophils 0.2 10^3/ul (0-0.6); ABS Lymphocytes 2.5 10^3/ul (1.0-4.8); ABS Monocytes 1.4 10^3/ul (0-0.8); ABS Neutrophils 8.3 10^3/ul (1.5-7.7); ABS Nucleated RBC 0 10^3/ul; Hematocrit 36 % (35-47); Lymphocyte % 20.1 % (25-47); Mean Corpuscular HGB Conc 33 g/dl (31-36); Mean Corpuscular Hemoglobin 30 pg (27-31); Mean Corpuscular Volume 91 fL (80-97); Mean Platelet Volume 8 um3 (7.4-10.4); Nucleated Red Blood Cells % 0; Platelet Count 354 10^3/ul (150-450); Red Blood Count 3.95 10^6/ul (4.0-5.4); Red Cell Distribution Width 13 % (10.5-15); White Blood Count 12.6 10^3/ul (3.5-10.8)
[2017-07-19 05:00] LABS: EGFR Non-African American 98.7 (>60)
[2017-07-19] MEDS ORDERED: NS 0.9% 1000 ML* 1,000 ML IV SCH (06:00)
--- NOTE | 2017-07-19 07:48 | PN ---
Subjective Date of Service: 07/19/17 Interval History: Overnight, no new issues. No confusions. Patient continues to have some left sided weakness but appears improved this am. She was appropriately interactive overnight. Continues to have difficult with balance and ambulating. NPO for GINA today Objective Active Medications: Aspirin (Aspirin Low Dose Tab*) 81 mg PO DAILY [facility] Last Admin: 07/18/17 08:46 Dose: 81 mg Atorvastatin Calcium (Lipitor*) 80 mg PO 1700 [facility] Last Admin: 07/18/17 17:11 Dose: 80 mg Enoxaparin Sodium (Lovenox(*)) 40 mg SUBCUT Q24H [facility] Last Admin: 07/18/17 11:39 Dose: 40 mg Sodium Chloride (Ns 0.9% 1000 Ml*) 1,000 mls @ 100 mls/hr IV PER RATE [facility] Last Admin: 07/19/17 06:28 Dose: 100 mls/hr Metoprolol Tartrate (Lopressor Tab*) 25 mg PO BID [facility] Last Admin: 07/18/17 21:13 Dose: 25 mg Nitroglycerin (Nitroglycerin Tab 0.4 Mg*) 0.4 mg SL Q5M PRN PRN Reason: ANGINA Vital Signs 07/18/17 07/18/17 07/18/17 07:59 08:00 08:01 Temperature 99.0 F Pulse Rate 75 74 Respiratory 17 15 Rate Blood Pressure 117/73 (mmHg) O2 Sat by Pulse 97 97 Oximetry 07/18/17 07/18/17 07/18/17 08:30 09:00 09:01 Temperature Pulse Rate 77 70 70 Respiratory 16 17 16 Rate Blood Pressure 124/75 115/79 (mmHg) O2 Sat by Pulse 96 97 97 Oximetry 07/18/17 07/18/17 07/18/17 09:30 10:00 10:03 Temperature Pulse Rate 77 79 77 Respiratory 12 15 13 Rate Blood Pressure 107/75 98/60 (mmHg) O2 Sat by Pulse 96 96 97 Oximetry 07/18/17 07/18/17 07/18/17 10:30 11:00 11:01 Temperature Pulse Rate 74 70 76 Respiratory 12 17 18 Rate Blood Pressure 100/66 97/70 (mmHg) O2 Sat by Pulse 96 81 96 Oximetry 07/18/17 07/18/17 07/18/17 11:30 12:00 12:30 Temperature 99.3 F Pulse Rate 80 80 76 Respiratory 18 15 17 Rate Blood Pressure 109/77 104/69 112/81 (mmHg) O2 Sat by Pulse 97 97 97 Oximetry 07/18/17 07/18/17 07/18/17 13:00 13:30 14:00 Temperature Pulse Rate 77 84 82 Respiratory 15 21 7 Rate Blood Pressure 101/72 128/82 104/69 (mmHg) O2 Sat by Pulse 97 97 97 Oximetry 07/18/17 07/18/17 07/18/17 14:30 15:00 15:01 Temperature Pulse Rate 90 88 90 Respiratory 16 15 11 Rate Blood Pressure 114/75 124/68 (mmHg) O2 Sat by Pulse 97 98 98 Oximetry 07/18/17 07/18/17 07/18/17 15:30 15:43 16:00 Temperature 98.8 F Pulse Rate 93 90 Respiratory 8 21 Rate Blood Pressure 112/76 111/73 (mmHg) O2 Sat by Pulse 97 99 Oximetry 07/18/17 07/18/17 07/18/17 16:01 16:30 17:00 Temperature Pulse Rate 88 88 86 Respiratory 15 18 16 Rate Blood Pressure 113/73 130/77 (mmHg) O2 Sat by Pulse 98 98 98 Oximetry 07/18/17 07/18/17 07/18/17 17:01 17:30 18:00 Temperature Pulse Rate 83 90 87 Respiratory 12 14 15 Rate Blood Pressure 128/86 135/88 (mmHg) O2 Sat by Pulse 98 96 96 Oximetry 07/18/17 07/18/17 07/18/17 18:01 18:31 19:00 Temperature Pulse Rate 90 86 85 Respiratory 16 6 13 Rate Blood Pressure 107/71 115/83 (mmHg) O2 Sat by Pulse 96 96 94 Oximetry 07/18/17 07/18/17 07/18/17 19:01 19:30 19:57 Temperature 100.0 F Pulse Rate 90 100 Respiratory 8 16 Rate Blood Pressure 122/81 (mmHg) O2 Sat by Pulse 94 95 Oximetry 07/18/17 07/18/17 07/18/17 20:00 20:01 20:30 Temperature Pulse Rate 95 94 94 Respiratory 15 16 16 Rate Blood Pressure 131/74 119/70 (mmHg) O2 Sat by Pulse 96 97 93 Oximetry 07/18/17 07/18/17 07/18/17 21:00 21:01 21:30 Temperature Pulse Rate 90 89 89 Respiratory 11 15 15 Rate Blood Pressure 104/73 106/65 (mmHg) O2 Sat by Pulse 94 94 93 Oximetry 07/18/17 07/18/17 07/18/17 22:00 22:01 22:21 Temperature Pulse Rate 87 87 83 Respiratory 14 15 17 Rate Blood Pressure 100/68 (mmHg) O2 Sat by Pulse 94 93 94 Oximetry 07/18/17 07/18/17 07/18/17 22:30 23:00 23:01 Temperature Pulse Rate 81 79 80 Respiratory 4 14 16 Rate Blood Pressure 106/63 112/75 (mmHg) O2 Sat by Pulse 94 96 94 Oximetry 07/18/17 07/18/17 07/19/17 23:30 23:53 00:00 Temperature 99.0 F Pulse Rate 73 73 Respiratory 17 14 Rate Blood Pressure 99/69 110/67 (mmHg) O2 Sat by Pulse 95 96 Oximetry 07/19/17 07/19/17 07/19/17 00:01 00:30 01:00 Temperature Pulse Rate 71 76 82 Respiratory 15 14 13 Rate Blood Pressure 118/83 123/96 (mmHg) O2 Sat by Pulse 95 95 95 Oximetry 07/19/17 07/19/17 07/19/17 01:01 01:30 02:00 Temperature Pulse Rate 80 84 79 Respiratory 17 13 22 Rate Blood Pressure 125/83 121/75 (mmHg) O2 Sat by Pulse 96 94 94 Oximetry 07/19/17 07/19/17 07/19/17 02:07 02:30 03:00 Temperature Pulse Rate 78 73 78 Respiratory 15 14 20 Rate Blood Pressure 122/77 132/79 (mmHg) O2 Sat by Pulse 94 94 95 Oximetry 07/19/17 07/19/17 07/19/17 03:30 04:00 04:18 Temperature 99.0 F Pulse Rate 74 84 78 Respiratory 26 12 16 Rate Blood Pressure 114/73 135/82 112/74 (mmHg) O2 Sat by Pulse 93 95 94 Oximetry 07/19/17 07/19/17 07/19/17 04:30 05:00 05:30 Temperature Pulse Rate 78 77 77 Respiratory 14 17 20 Rate Blood Pressure 116/69 124/77 117/81 (mmHg) O2 Sat by Pulse 94 95 93 Oximetry 07/19/17 07/19/17 06:00 07:32 Temperature 99.1 F Pulse Rate 68 Respiratory 12 Rate Blood Pressure 129/75 (mmHg) O2 Sat by Pulse 94 Oximetry Oxygen Devices in Use Now: None Neurology Exam: General: Awake, Alert, Oriented x3 HEENT: Normocephelic/atraumstic, sclera anicteric, mucous membranes moist Neck: Supple Chest: Clear to auscultation bilaterally Cardiovascular: Regular rate and rhythm without murmurs, rubs, gallops Abdomen: Soft, nontender/nondistended Extremities: No clubing, cyanosis, or edema Neurological Findings: Awake, Alert, Oriented x3 Speech: fluent without dysarthric, repetition intact Cranial Nerve: PEERL, EOM intact, VFF, no nystagmus, face: Mild left lower droop, facial sensation intact, hearing intact to finger rub bilaterally, palate elevates symmetrically, tongue midline. Motor: 5/5 Right upper and lower extremities. Mild drift in the RLE. LUE: 4+/ 5 proximally and distally with drift. LLE: 4+/5 proximally, 5/5 distally with drift Sensation: intact to LT/PP bilaterally upper and lower extremities Deep Tendon Reflex: 1+ symmetric in the upper/lower extremities, Babinski - down going Finger to nose, rapid alternating movements intact without tremor, slower on the left Result Diagrams: 07/19/17 04:15 07/19/17 04:15 Additional Lab and Data: Lab Results 07/16/17 07/16/17 07/16/17 Range/Units 09:16 09:16 09:16 WBC 25.2 H (3.5-10.8) 10^3/ul RBC 5.43 H (4.0-5.4) 10^6/ul Hgb 16.6 H (12.0-16.0) g/dl Hct 49 H (35-47) % MCV 91 (80-97) fL MCH 31 (27-31) pg MCHC 34 (31-36) g/dl RDW 14 (10.5-15) % Plt Count 371 (150-450) 10^3/ul MPV 9 (7.4-10.4) um3 Neut % (Auto) 83.5 H (38-83) % Lymph % (Auto) 5.9 L (25-47) % Wetzel % (Auto) 10.0 H (1-9) % Eos % (Auto) 0.3 (0-6) % Baso % (Auto) 0.3 (0-2) % Absolute Neuts (auto) 21.0 H (1.5-7.7) 10^3/ul Absolute Lymphs (auto) 1.5 (1.0-4.8) 10^3/ul Absolute Monos (auto) 2.5 H (0-0.8) 10^3/ul Absolute Eos (auto) 0.1 (0-0.6) 10^3/ul Absolute Basos (auto) 0.1 (0-0.2) 10^3/ul Absolute Nucleated RBC 0 10^3/ul Nucleated RBC % 0 INR (Anticoag Therapy) 1.07 H (0.77-1.02) APTT (26.0-36.3) seconds Sodium 130 L (133-145) mmol/L Potassium TNP Chloride 95 L (101-111) mmol/L Carbon Dioxide 26 (22-32) mmol/L Anion Gap 9 (2-11) mmol/L BUN 35 H (6-24) mg/dL Creatinine 1.35 H (0.51-0.95) mg/dL Est GFR ( Amer) 50.8 (>60) Est GFR (Non-Af Amer) 39.5 (>60) BUN/Creatinine Ratio 25.9 H (8-20) Glucose 145 H (70-100) mg/dL Lactic Acid (0.5-2.0) mmol/L Calcium 10.5 H (8.6-10.3) mg/dL Total Bilirubin 0.80 (0.2-1.0) mg/dL AST TNP ALT 30 (7-52) U/L Alkaline Phosphatase 108 H (34-104) U/L Total Creatine Kinase 354 H (10-223) U/L CK-MB (CK-2) 17.1 H (0.6-6.3) ng/mL Troponin I 29.81 H* (<0.04) ng/mL C-Reactive Protein 214.34 H (< 5.00) mg/L B-Natriuretic Peptide ( - 100) pg/mL Total Protein 9.0 H (6.4-8.9) g/dL Albumin 4.2 (3.2-5.2) g/dL Globulin 4.8 H (2-4) g/dL Albumin/Globulin Ratio 0.9 L (1-3) LDL Cholesterol Direct 100 mg/dL 07/16/17 07/16/17 07/16/17 Range/Units 09:16 09:16 09:16 WBC (3.5-10.8) 10^3/ul RBC (4.0-5.4) 10^6/ul Hgb (12.0-16.0) g/dl Hct (35-47) % MCV (80-97) fL MCH (27-31) pg MCHC (31-36) g/dl RDW (10.5-15) % Plt Count (150-450) 10^3/ul MPV (7.4-10.4) um3 Neut % (Auto) (38-83) % Lymph % (Auto) (25-47) % Wetzel % (Auto) (1-9) % Eos % (Auto) (0-6) % Baso % (Auto) (0-2) % Absolute Neuts (auto) (1.5-7.7) 10^3/ul Absolute Lymphs (auto) (1.0-4.8) 10^3/ul Absolute Monos (auto) (0-0.8) 10^3/ul Absolute Eos (auto) (0-0.6) 10^3/ul Absolute Basos (auto) (0-0.2) 10^3/ul Absolute Nucleated RBC 10^3/ul Nucleated RBC % INR (Anticoag Therapy) (0.77-1.02) APTT 30.1 (26.0-36.3) seconds Sodium (133-145) mmol/L Potassium Chloride (101-111) mmol/L Carbon Dioxide (22-32) mmol/L Anion Gap (2-11) mmol/L BUN (6-24) mg/dL Creatinine (0.51-0.95) mg/dL Est GFR ( Amer) (>60) Est GFR (Non-Af Amer) (>60) BUN/Creatinine Ratio (8-20) Glucose (70-100) mg/dL Lactic Acid 2.0 (0.5-2.0) mmol/L Calcium (8.6-10.3) mg/dL Total Bilirubin (0.2-1.0) mg/dL AST ALT (7-52) U/L Alkaline Phosphatase (34-104) U/L Total Creatine Kinase (10-223) U/L CK-MB (CK-2) (0.6-6.3) ng/mL Troponin I (<0.04) ng/mL C-Reactive Protein (< 5.00) mg/L B-Natriuretic Peptide 189 H ( - 100) pg/mL Total Protein (6.4-8.9) g/dL Albumin (3.2-5.2) g/dL Globulin (2-4) g/dL Albumin/Globulin Ratio (1-3) LDL Cholesterol Direct mg/dL 07/16/17 Range/Units 10:50 WBC (3.5-10.8) 10^3/ul RBC (4.0-5.4) 10^6/ul Hgb (12.0-16.0) g/dl Hct (35-47) % MCV (80-97) fL MCH (27-31) pg MCHC (31-36) g/dl RDW (10.5-15) % Plt Count (150-450) 10^3/ul MPV (7.4-10.4) um3 Neut % (Auto) (38-83) % Lymph % (Auto) (25-47) % Wetzel % (Auto) (1-9) % Eos % (Auto) (0-6) % Baso % (Auto) (0-2) % Absolute Neuts (auto) (1.5-7.7) 10^3/ul Absolute Lymphs (auto) (1.0-4.8) 10^3/ul Absolute Monos (auto) (0-0.8) 10^3/ul Absolute Eos (auto) (0-0.6) 10^3/ul Absolute Basos (auto) (0-0.2) 10^3/ul Absolute Nucleated RBC 10^3/ul Nucleated RBC % INR (Anticoag Therapy) (0.77-1.02) APTT (26.0-36.3) seconds Sodium (133-145) mmol/L Potassium 3.5 Chloride (101-111) mmol/L Carbon Dioxide (22-32) mmol/L Anion Gap (2-11) mmol/L BUN (6-24) mg/dL Creatinine (0.51-0.95) mg/dL Est GFR ( Amer) (>60) Est GFR (Non-Af Amer) (>60) BUN/Creatinine Ratio (8-20) Glucose (70-100) mg/dL Lactic Acid (0.5-2.0) mmol/L Calcium (8.6-10.3) mg/dL Total Bilirubin (0.2-1.0) mg/dL AST 41 H ALT (7-52) U/L Alkaline Phosphatase (34-104) U/L Total Creatine Kinase (10-223) U/L CK-MB (CK-2) (0.6-6.3) ng/mL Troponin I (<0.04) ng/mL C-Reactive Protein (< 5.00) mg/L B-Natriuretic Peptide ( - 100) pg/mL Total Protein (6.4-8.9) g/dL Albumin (3.2-5.2) g/dL Globulin (2-4) g/dL Albumin/Globulin Ratio (1-3) LDL Cholesterol Direct mg/dL Microbiology and Other Data: Microbiology 07/17/17 17:53 Influenza Types A,B Antigen (JOEY) - Final Nasal Specimen received for Influenza A/B Molecular testing 07/16/17 15:30 Aerobic Blood Culture - Preliminary Blood Venous No Growth Day 1 Anaerobic Blood Culture - Preliminary No Growth Day 1 07/16/17 14:00 Aerobic Blood Culture - Preliminary Blood Venous No Growth Day 1 Anaerobic Blood Culture - Preliminary No Growth Day 1 07/17/17 06:10 Group A Streptococcus Rapid Screen - Final Throat Specimen received for Rapid Strep A Molecular testing Assessment/Plan 66 year old with recent MN, generalized weakness with left side greater than right side. Patient with left sided weakness that started in the later part of last week but was seen in the ER in May 2017 leaning to the left and weak. She has multiple, small embolic strokes in multiple vascular territories. 1. Repeat GINA this am to look for evidence of thrombus 2. CTA showed no significant vascular disease in the head/neck. 3. Plan for repeat MRI today after GINA to look for further strokes, inflammation (with contrast) 4. Consider vasculitis as underlying etiology. C3, C4, Anca pending. ESR and CRP elevated. WBC elevated on admission, now improved. This could be inflammatory response secondary to recent MN. Check UA, rule out any infection. Low grade temps overnight. If no obvious source found, consider steroids, rheum consult 5. BP control per Cardiology 6. Activity per Cardiology recommendations 7. Continue to monitor for A.fib 8. Continue ASA, statin
[2017-07-19] MEDS: Aspirin Low Dose CHEW TAB* 81 MG PO SCH (07:55)
[2017-07-19] MEDS: Metoprolol Tartrate TAB* 25 MG PO SCH ×2 (07:55→21:47)
[2017-07-19 09:11] LABS: Urine Appearance Cloudy; Urine Blood 3+ (Negative); Urine Color Yellow; Urine Ketones Negative (Negative); Urine Protein Negative (Negative); Urine Specific Gravity 1.013 (1.010-1.030); Urine Urobilinogen Negative (Negative)
--- NOTE | 2017-07-19 11:32 | PN ---
Progress Note - Progress Note Date of Service: 07/19/17 Note: CRITICAL CARE FOR MEDICINE CONSULT DATE: 07/19/17 TIME: 1130 SUBJECTIVE: Patient seen and examined. Doing well. PHYSICAL EXAM: Vital Signs: Reviewed. Neurologic: awake, communicating. left arm and leg still much stronger then yesterday. HEENT: anciteric. mmm Cardiovascular: reg, no m or rub Respiratory: clear Abdomen: soft, nt; no masses Extremities: warm Access: piv LABS: Reviewed. IMAGING: Reviewed. MEDICATIONS: Reviewed. 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 pt and rehab needs Cardiovascular: perfusing. vol status ok. cards following, rx. Respiratory: RA Gastrointestinal: po Renal/Metabolic: stable. mercedes walton Infectious Disease: no infective burden. Hematology: stable. anti-plt; anticoag needs per cards/neuro. Endocrine: statin. Musculoskeletal: oob. pt Psych/Social: pt in good spirits. Supportive and preventative care as ordered. Disposition: floor with tele post testing today and rehab needs Code Status: Full Critical Care Time: 25min FBelle Nettles DO
[2017-07-19] MEDS: Enoxaparin(*) 40 MG/0.4 ML SYR SUBCUT SCH (11:38)
[2017-07-19] MEDS ORDERED: Naloxone* 0.4 MG/ML 1 ML VIAL ONE (14:17)
[2017-07-19] MEDS ORDERED: fentaNYL* 50 MCG/ML 2 ML VIAL (100 MCG VIAL) ONE (14:17)
[2017-07-19] MEDS ORDERED: Midazolam* 1 MG/ML 10 ML VIAL (10 MG) ONE (14:18)
[2017-07-19] MEDS ORDERED: Flumazenil* 0.1 MG/ML 5 ML MDV ONE (14:18)
[2017-07-19] MEDS ORDERED: Lidocaine 2% VISCOUS* 15 ML UDC ONE (14:18)
--- NOTE | 2017-07-19 17:29 | TEE ---
Patient: LIGIA JADE [facility] Rec#: [id number] : 1950 Date: 07/19/2017 Age: 66y Weight: kg / NaN lbs Sex: F Room#: ICU 8 Admit Date#: 07/16/2017 Type: Inpatient Referring: Denton Greenwood MD Performing: Dianna Valdes MD Reading: Dianna Valdes MD Ditto Machine Operator: Meggan Barros,RENAECS,RDMS Nurse: Júnior Goyal RN CC: Florence Newton MD Transesophageal Echocardiogram Indication: CVA BP: 148/76 HR: 74 Rhythm: NSR Findings History: S/P STEMI, PCI, shower emboli CVA, HTN Technical Comments: The study quality is good. Left Ventricle: The left ventricular chamber size is decreased. Mild concentric left ventricular hypertrophy is observed. There are multiple regional wall motion abnormalities. The estimated ejection fraction is 45-50%. There is an E to A reversal in the mitral valve flow pattern suggestive of diastolic dysfunction. Left Atrium: The left atrial chamber size is normal. There is no thrombus visualized in the left atrial appendage. Right Ventricle: The right ventricular chamber size and systolic function are within normal limits. Right Atrium: The right atrial cavity size is normal. There were late bubbles seen in the left atrium. Aortic Valve: The aortic valve is trileaflet. The aortic valve leaflets are mildly thickened. There is no evidence of aortic regurgitation. There is no evidence of aortic stenosis. Mitral Valve: Mild mitral leaflet calcification is visualized. There is a trace of mitral regurgitation. There is no evidence of mitral stenosis. Tricuspid Valve: The tricuspid valve leaflets are normal. There is trace tricuspid regurgitation. Pulmonic Valve: The pulmonic valve appears normal. There is no evidence of pulmonic regurgitation. Pericardium: There is no significant pericardial effusion. Aorta: There is mild dilatation of the ascending aorta. There is no dilation of the aortic root. There is plaque visualized in the descending aorta.of mild-moderate degree. Pulmonary Artery: The main pulmonary artery appears normal. Venous: The inferior vena cava appears normal. The pulmonary veins appear normal. 4 out of 4 visualized The superior vena cava appears normal. GINA Procedures: All standard views were attempted within the limitations of patient tolerance and safety. History and physical as well as labs were reviewed. The patient was in a fasting state. Risks and benefits of the procedure, including alternatives, were discussed and written informed consent was obtained. The patient and/or their health care equal opportunity representative expressed understanding of the procedure, risks and benefits. Baseline and continuous monitoring of blood pressure, heart rate, pulse oximetry and heart rhythm was performed throughout the procedure. The appropriate time-out procedure was performed as per [facility] protocol. The patient was placed in the left lateral decubitus position. The patient's posterior pharynx was anesthetized with 20ml of 2% viscous lidocaine. The patient received IV Midazolam with a total dose of 6 mg The patient received IV Fentanyl with a total dose of 75 mcg The multiplane transesophageal echocardiogram probe was inserted through the posterior oropharynx and advanced into the esophagus without difficulty. Multiple 2D images were obtained of the heart and its related structures. Color flow Doppler was used for evaluation. Spectral Doppler was also used. The atrial septum was interrogated with color flow Doppler. At the conclusion of the procedure the probe was removed with continuous suction without complications. The patient tolerated the procedure with no apparent complications. Contrast: Intravenous agitated saline contrast was used to assess intracardiac shunting. Image 11 and 35 Conclusions The left ventricular chamber size is decreased. Mild concentric left ventricular hypertrophy is observed. There are multiple regional wall motion abnormalities, with posterior lateral wall hypokinesis. The estimated ejection fraction is 45-50%. There is an E to A reversal in the mitral valve flow pattern suggestive of diastolic dysfunction. There is no thrombus visualized in the left atrial appendage. There is a trace of mitral regurgitation. There is trace tricuspid regurgitation. There is mild dilatation of the ascending aorta. There is plaque visualized in the descending aorta.of mild-moderate degree. Measurements Name Value Normal Range Ao root diameter (2D) 1.9 cm (2.1 - 3.5) Ascending Ao 3.97 cm (2.1 - 3.4) Name Value Normal Range MV E-wave Vmax 1.06 m/sec - MV deceleration time 136.16 msec - MV A-wave Vmax 1.21 m/sec - MV E:A ratio 0.88 ratio -
[2017-07-19] MEDS: Atorvastatin* 80 MG TAB PO SCH ×2 (19:48→21:47)
[2017-07-19] MEDS ORDERED: Gadoteridol* (CONTRAST) 279.3 MG/ML 10 ML IV ONE (20:08)
--- NOTE | 2017-07-19 20:59 | RAD ---
Indication: Evaluate for vasculitis. Image sequences: Sagittal and axial T1, axial T2, FLAIR, diffusion and susceptibility weighted images of the brain were obtained. 11 mL of ProHance was injected and postcontrast sagittal, axial and coronal T1-weighted postcontrast images were obtained. Ventricular structures are midline. No midline shift is noted. The extra-axial spaces are prominent consistent with central and cortical atrophy. There are punctate areas of restriction of diffusion involving the right peripheral cerebellar hemisphere, left posterior temporal lobe, deep parietal white matter and frontal white matter bilaterally especially high in the convexities. These likely represents multiple tiny infarct. Possibility of embolic phenomenon should be considered. The postcontrast images demonstrates no evidence of abnormal enhancement. Prominent perivascular spaces are noted in the basal ganglia bilaterally. Orbits are unremarkable. Postcontrast images demonstrates no abnormally enhancing lesions. IMPRESSION: Punctate areas of restriction of diffusion throughout both cerebral hemispheres and in the right cerebellum. This is consistent with tiny infarcts. The possibility of embolic phenomenon should be considered. Chronic ischemic White matter change.
[2017-07-20 05:58] LABS: ABS Basophils 0.1 10^3/ul (0-0.2); ABS Eosinophils 0.4 10^3/ul (0-0.6); ABS Lymphocytes 1.7 10^3/ul (1.0-4.8); ABS Monocytes 1.3 10^3/ul (0-0.8); ABS Neutrophils 10.2 10^3/ul (1.5-7.7); ABS Nucleated RBC 0 10^3/ul; Eosinophil % 2.6 % (0-6); Hematocrit 37 % (35-47); Hemoglobin 12.3 g/dl (12.0-16.0); Lymphocyte % 12.8 % (25-47); Mean Corpuscular HGB Conc 34 g/dl (31-36); Mean Corpuscular Hemoglobin 30 pg (27-31); Mean Corpuscular Volume 90 fL (80-97); Mean Platelet Volume 8 um3 (7.4-10.4); Nucleated Red Blood Cells % 0; Platelet Count 383 10^3/ul (150-450); Red Blood Count 4.06 10^6/ul (4.0-5.4); Red Cell Distribution Width 13 % (10.5-15); White Blood Count 13.7 10^3/ul (3.5-10.8)
[2017-07-20 06:13] LABS: EGFR Non-African American 111.3 (>60)
--- NOTE | 2017-07-20 07:22 | PN ---
Subjective Date of Service: 07/20/17 Interval History: I spoke with the patient and the nurses caring for her overnight. One watery stool overnight, no other new issues. Remains weaker on the left side but no worsening. Tolerating PO. Pleasant, answering all questions appropriately and following commands. Personally reviewed the films from MRI 07.19.16 and compared to previous, no major changes. Small embolic strokes in multiple distributions. No other acute changes Reviewed GINA results: posterior wall hypokinesis, no thrombus appreciated. Multiple regional wall motion abn. EF 45-50% Objective Active Medications: Aspirin (Aspirin Low Dose Tab*) 81 mg PO DAILY [facility] Last Admin: 07/19/17 07:55 Dose: 81 mg Atorvastatin Calcium (Lipitor*) 80 mg PO 1700 [facility] Last Admin: 07/19/17 21:47 Dose: 80 mg Enoxaparin Sodium (Lovenox(*)) 40 mg SUBCUT Q24H [facility] Last Admin: 07/19/17 11:38 Dose: 40 mg Metoprolol Tartrate (Lopressor Tab*) 25 mg PO BID [facility] Last Admin: 07/19/17 21:47 Dose: 25 mg Nitroglycerin (Nitroglycerin Tab 0.4 Mg*) 0.4 mg SL Q5M PRN PRN Reason: ANGINA Vital Signs 07/19/17 07/19/17 07/19/17 07:30 07:32 08:00 Temperature 99.1 F Pulse Rate 76 81 Respiratory 14 13 Rate Blood Pressure 132/82 130/81 (mmHg) O2 Sat by Pulse 95 95 Oximetry 07/19/17 07/19/17 07/19/17 08:30 09:00 09:30 Temperature Pulse Rate 74 69 68 Respiratory 17 23 17 Rate Blood Pressure 123/79 126/81 114/72 (mmHg) O2 Sat by Pulse 96 95 96 Oximetry 07/19/17 07/19/17 07/19/17 10:00 10:01 10:30 Temperature Pulse Rate 81 74 69 Respiratory 28 11 17 Rate Blood Pressure 133/93 124/82 (mmHg) O2 Sat by Pulse 97 97 97 Oximetry 07/19/17 07/19/17 07/19/17 11:00 11:30 12:00 Temperature 98.2 F Pulse Rate 66 74 69 Respiratory 13 16 17 Rate Blood Pressure 125/81 135/86 128/85 (mmHg) O2 Sat by Pulse 96 97 97 Oximetry 07/19/17 07/19/17 07/19/17 12:31 13:00 13:31 Temperature Pulse Rate 79 74 81 Respiratory 9 11 13 Rate Blood Pressure 148/90 150/96 (mmHg) O2 Sat by Pulse 98 97 Oximetry 07/19/17 07/19/17 07/19/17 14:00 14:01 14:30 Temperature Pulse Rate 75 74 69 Respiratory 15 12 13 Rate Blood Pressure 144/88 140/86 (mmHg) O2 Sat by Pulse 98 97 97 Oximetry 07/19/17 07/19/17 07/19/17 15:00 15:03 15:05 Temperature Pulse Rate 76 75 73 Respiratory 14 14 9 Rate Blood Pressure 143/86 143/93 135/87 (mmHg) O2 Sat by Pulse 97 99 99 Oximetry 07/19/17 07/19/17 07/19/17 15:10 15:16 15:20 Temperature Pulse Rate 74 69 70 Respiratory 11 10 16 Rate Blood Pressure 131/87 114/68 113/70 (mmHg) O2 Sat by Pulse 98 98 97 Oximetry 07/19/17 07/19/17 07/19/17 15:25 15:30 15:35 Temperature Pulse Rate 67 67 65 Respiratory 5 9 9 Rate Blood Pressure 101/64 101/64 100/65 (mmHg) O2 Sat by Pulse 98 98 98 Oximetry 07/19/17 07/19/17 07/19/17 15:40 15:45 15:50 Temperature Pulse Rate 64 64 64 Respiratory 7 6 6 Rate Blood Pressure 101/63 101/66 99/65 (mmHg) O2 Sat by Pulse 98 98 98 Oximetry 07/19/17 07/19/17 07/19/17 15:55 16:00 16:05 Temperature 98.8 F Pulse Rate 62 62 62 Respiratory 6 10 7 Rate Blood Pressure 106/69 101/65 109/66 (mmHg) O2 Sat by Pulse 98 99 99 Oximetry 07/19/17 07/19/17 07/19/17 16:11 16:15 16:20 Temperature Pulse Rate 67 60 57 Respiratory 12 10 9 Rate Blood Pressure 133/82 143/82 144/86 (mmHg) O2 Sat by Pulse 100 100 100 Oximetry 07/19/17 07/19/17 07/19/17 16:26 16:30 16:35 Temperature Pulse Rate 59 60 63 Respiratory 13 12 9 Rate Blood Pressure 139/85 145/84 143/83 (mmHg) O2 Sat by Pulse 100 100 100 Oximetry 07/19/17 07/19/17 07/19/17 16:41 16:45 16:50 Temperature Pulse Rate 81 69 72 Respiratory 14 14 7 Rate Blood Pressure 156/76 139/91 152/95 (mmHg) O2 Sat by Pulse 100 99 99 Oximetry 07/19/17 07/19/17 07/19/17 16:55 17:00 17:05 Temperature Pulse Rate 73 71 72 Respiratory 25 17 14 Rate Blood Pressure 136/88 145/87 152/94 (mmHg) O2 Sat by Pulse 99 99 98 Oximetry 07/19/17 07/19/17 07/19/17 17:10 17:15 17:20 Temperature Pulse Rate 73 70 65 Respiratory 14 15 16 Rate Blood Pressure 151/89 142/87 151/87 (mmHg) O2 Sat by Pulse 97 97 96 Oximetry 07/19/17 07/19/17 07/19/17 17:25 17:30 17:35 Temperature Pulse Rate 68 68 67 Respiratory 17 16 15 Rate Blood Pressure 151/94 145/90 149/90 (mmHg) O2 Sat by Pulse 96 96 96 Oximetry 07/19/17 07/19/17 07/19/17 17:40 17:45 17:50 Temperature Pulse Rate 62 62 61 Respiratory 16 13 14 Rate Blood Pressure 145/87 138/82 134/80 (mmHg) O2 Sat by Pulse 95 95 94 Oximetry 07/19/17 07/19/17 07/19/17 17:55 18:00 18:05 Temperature Pulse Rate 66 64 65 Respiratory 14 13 15 Rate Blood Pressure 131/82 125/78 123/79 (mmHg) O2 Sat by Pulse 94 94 95 Oximetry 07/19/17 07/19/17 07/19/17 18:10 18:15 18:20 Temperature Pulse Rate 68 72 72 Respiratory 17 14 11 Rate Blood Pressure 154/84 144/96 150/95 (mmHg) O2 Sat by Pulse 96 97 96 Oximetry 07/19/17 07/19/17 07/19/17 18:25 18:30 18:35 Temperature Pulse Rate 69 68 82 Respiratory 13 13 14 Rate Blood Pressure 156/92 161/91 (mmHg) O2 Sat by Pulse 97 97 97 Oximetry 07/19/17 07/19/17 07/19/17 18:40 19:00 20:00 Temperature 100.7 F Pulse Rate 82 69 Respiratory 14 14 18 Rate Blood Pressure 160/89 150/92 (mmHg) O2 Sat by Pulse 96 96 Oximetry 07/19/17 07/19/17 07/19/17 20:30 20:47 21:00 Temperature Pulse Rate 83 89 89 Respiratory 18 15 18 Rate Blood Pressure 166/101 (mmHg) O2 Sat by Pulse 93 97 97 Oximetry 07/19/17 07/19/17 07/19/17 21:01 21:13 22:00 Temperature Pulse Rate 91 90 87 Respiratory 14 16 21 Rate Blood Pressure 142/123 162/90 161/94 (mmHg) O2 Sat by Pulse 96 96 98 Oximetry 07/19/17 07/20/17 07/20/17 23:00 00:00 00:04 Temperature 99.3 F Pulse Rate 78 78 91 Respiratory 12 15 19 Rate Blood Pressure 130/80 111/69 (mmHg) O2 Sat by Pulse 95 96 96 Oximetry 07/20/17 07/20/17 07/20/17 01:00 02:00 03:00 Temperature Pulse Rate 85 83 78 Respiratory 12 27 15 Rate Blood Pressure 114/67 137/79 121/78 (mmHg) O2 Sat by Pulse 97 95 95 Oximetry 07/20/17 07/20/17 07/20/17 03:06 04:00 04:10 Temperature Pulse Rate 77 Respiratory 16 11 14 Rate Blood Pressure 138/91 (mmHg) O2 Sat by Pulse 95 Oximetry 07/20/17 07/20/17 07/20/17 04:54 04:59 05:00 Temperature 98.6 F Pulse Rate 74 Respiratory 14 13 Rate Blood Pressure 127/81 (mmHg) O2 Sat by Pulse 95 Oximetry 07/20/17 07/20/17 05:29 06:00 Temperature Pulse Rate 74 Respiratory 10 16 Rate Blood Pressure 118/66 (mmHg) O2 Sat by Pulse 94 Oximetry Oxygen Devices in Use Now: None Neurology Exam: General: Awake, Alert, Oriented x3 HEENT: Normocephelic/atraumstic, sclera anicteric, mucous membranes moist, no dentures in place Neck: Supple Chest: Clear to auscultation bilaterally Cardiovascular: Regular rate and rhythm without murmurs, rubs, gallops Abdomen: Soft, nontender/nondistended Extremities: No clubing, cyanosis, or edema. Rash on the chest where EKG leads have been placed Neurological Findings: Awake, Alert, Oriented x3 Speech: fluent without dysarthria, repetition intact Cranial Nerve: PEERL, EOM intact, VFF, no nystagmus, very subtle facial droop left lower, facial sensation intact, hearing intact to finger rub bilaterally, palate elevates symmetrically, tongue midline, SCM and Trapezius s/s. Motor: 5/5 right side with subtle drift RLE. LLE 4+/5 proximally, 5/5 distally with drift. LUE 4+/5 proximally, 4+/5 distally with subtle drift Sensation: intact to LT/PP bilaterally upper and lower extremities Deep Tendon Reflex: 2+ symmetric in the upper/lower extremities, Babinski - down going No tremor appreciated Result Diagrams: 07/20/17 05:45 07/20/17 05:45 Additional Lab and Data: Lab Results 07/16/17 07/16/17 07/16/17 Range/Units 09:16 09:16 09:16 WBC 25.2 H (3.5-10.8) 10^3/ul RBC 5.43 H (4.0-5.4) 10^6/ul Hgb 16.6 H (12.0-16.0) g/dl Hct 49 H (35-47) % MCV 91 (80-97) fL MCH 31 (27-31) pg MCHC 34 (31-36) g/dl RDW 14 (10.5-15) % Plt Count 371 (150-450) 10^3/ul MPV 9 (7.4-10.4) um3 Neut % (Auto) 83.5 H (38-83) % Lymph % (Auto) 5.9 L (25-47) % [place] % (Auto) 10.0 H (1-9) % Eos % (Auto) 0.3 (0-6) % Baso % (Auto) 0.3 (0-2) % Absolute Neuts (auto) 21.0 H (1.5-7.7) 10^3/ul Absolute Lymphs (auto) 1.5 (1.0-4.8) 10^3/ul Absolute Monos (auto) 2.5 H (0-0.8) 10^3/ul Absolute Eos (auto) 0.1 (0-0.6) 10^3/ul Absolute Basos (auto) 0.1 (0-0.2) 10^3/ul Absolute Nucleated RBC 0 10^3/ul Nucleated RBC % 0 INR (Anticoag Therapy) 1.07 H (0.77-1.02) APTT (26.0-36.3) seconds Sodium 130 L (133-145) mmol/L Potassium TNP Chloride 95 L (101-111) mmol/L Carbon Dioxide 26 (22-32) mmol/L Anion Gap 9 (2-11) mmol/L BUN 35 H (6-24) mg/dL Creatinine 1.35 H (0.51-0.95) mg/dL Est GFR ( Amer) 50.8 (>60) Est GFR (Non-Af Amer) 39.5 (>60) BUN/Creatinine Ratio 25.9 H (8-20) Glucose 145 H (70-100) mg/dL Lactic Acid (0.5-2.0) mmol/L Calcium 10.5 H (8.6-10.3) mg/dL Total Bilirubin 0.80 (0.2-1.0) mg/dL AST TNP ALT 30 (7-52) U/L Alkaline Phosphatase 108 H (34-104) U/L Total Creatine Kinase 354 H (10-223) U/L CK-MB (CK-2) 17.1 H (0.6-6.3) ng/mL Troponin I 29.81 H* (<0.04) ng/mL C-Reactive Protein 214.34 H (< 5.00) mg/L B-Natriuretic Peptide ( - 100) pg/mL Total Protein 9.0 H (6.4-8.9) g/dL Albumin 4.2 (3.2-5.2) g/dL Globulin 4.8 H (2-4) g/dL Albumin/Globulin Ratio 0.9 L (1-3) LDL Cholesterol Direct 100 mg/dL 07/16/17 07/16/17 07/16/17 Range/Units 09:16 09:16 09:16 WBC (3.5-10.8) 10^3/ul RBC (4.0-5.4) 10^6/ul Hgb (12.0-16.0) g/dl Hct (35-47) % MCV (80-97) fL MCH (27-31) pg MCHC (31-36) g/dl RDW (10.5-15) % Plt Count (150-450) 10^3/ul MPV (7.4-10.4) um3 Neut % (Auto) (38-83) % Lymph % (Auto) (25-47) % [place] % (Auto) (1-9) % Eos % (Auto) (0-6) % Baso % (Auto) (0-2) % Absolute Neuts (auto) (1.5-7.7) 10^3/ul Absolute Lymphs (auto) (1.0-4.8) 10^3/ul Absolute Monos (auto) (0-0.8) 10^3/ul Absolute Eos (auto) (0-0.6) 10^3/ul Absolute Basos (auto) (0-0.2) 10^3/ul Absolute Nucleated RBC 10^3/ul Nucleated RBC % INR (Anticoag Therapy) (0.77-1.02) APTT 30.1 (26.0-36.3) seconds Sodium (133-145) mmol/L Potassium Chloride (101-111) mmol/L Carbon Dioxide (22-32) mmol/L Anion Gap (2-11) mmol/L BUN (6-24) mg/dL Creatinine (0.51-0.95) mg/dL Est GFR ( Amer) (>60) Est GFR (Non-Af Amer) (>60) BUN/Creatinine Ratio (8-20) Glucose (70-100) mg/dL Lactic Acid 2.0 (0.5-2.0) mmol/L Calcium (8.6-10.3) mg/dL Total Bilirubin (0.2-1.0) mg/dL AST ALT (7-52) U/L Alkaline Phosphatase (34-104) U/L Total Creatine Kinase (10-223) U/L CK-MB (CK-2) (0.6-6.3) ng/mL Troponin I (<0.04) ng/mL C-Reactive Protein (< 5.00) mg/L B-Natriuretic Peptide 189 H ( - 100) pg/mL Total Protein (6.4-8.9) g/dL Albumin (3.2-5.2) g/dL Globulin (2-4) g/dL Albumin/Globulin Ratio (1-3) LDL Cholesterol Direct mg/dL 07/16/17 Range/Units 10:50 WBC (3.5-10.8) 10^3/ul RBC (4.0-5.4) 10^6/ul Hgb (12.0-16.0) g/dl Hct (35-47) % MCV (80-97) fL MCH (27-31) pg MCHC (31-36) g/dl RDW (10.5-15) % Plt Count (150-450) 10^3/ul MPV (7.4-10.4) um3 Neut % (Auto) (38-83) % Lymph % (Auto) (25-47) % [place] % (Auto) (1-9) % Eos % (Auto) (0-6) % Baso % (Auto) (0-2) % Absolute Neuts (auto) (1.5-7.7) 10^3/ul Absolute Lymphs (auto) (1.0-4.8) 10^3/ul Absolute Monos (auto) (0-0.8) 10^3/ul Absolute Eos (auto) (0-0.6) 10^3/ul Absolute Basos (auto) (0-0.2) 10^3/ul Absolute Nucleated RBC 10^3/ul Nucleated RBC % INR (Anticoag Therapy) (0.77-1.02) APTT (26.0-36.3) seconds Sodium (133-145) mmol/L Potassium 3.5 Chloride (101-111) mmol/L Carbon Dioxide (22-32) mmol/L Anion Gap (2-11) mmol/L BUN (6-24) mg/dL Creatinine (0.51-0.95) mg/dL Est GFR ( Amer) (>60) Est GFR (Non-Af Amer) (>60) BUN/Creatinine Ratio (8-20) Glucose (70-100) mg/dL Lactic Acid (0.5-2.0) mmol/L Calcium (8.6-10.3) mg/dL Total Bilirubin (0.2-1.0) mg/dL AST 41 H ALT (7-52) U/L Alkaline Phosphatase (34-104) U/L Total Creatine Kinase (10-223) U/L CK-MB (CK-2) (0.6-6.3) ng/mL Troponin I (<0.04) ng/mL C-Reactive Protein (< 5.00) mg/L B-Natriuretic Peptide ( - 100) pg/mL Total Protein (6.4-8.9) g/dL Albumin (3.2-5.2) g/dL Globulin (2-4) g/dL Albumin/Globulin Ratio (1-3) LDL Cholesterol Direct mg/dL Microbiology and Other Data: Microbiology 07/17/17 17:53 Influenza Types A,B Antigen (JOEY) - Final Nasal Specimen received for Influenza A/B Molecular testing 07/16/17 15:30 Aerobic Blood Culture - Preliminary Blood Venous No Growth Day 1 Anaerobic Blood Culture - Preliminary No Growth Day 1 07/16/17 14:00 Aerobic Blood Culture - Preliminary Blood Venous No Growth Day 1 Anaerobic Blood Culture - Preliminary No Growth Day 1 07/17/17 06:10 Group A Streptococcus Rapid Screen - Final Throat Specimen received for Rapid Strep A Molecular testing Assessment/Plan 66 year old with recent RI, generalized weakness with left side greater than right side. Patient with left sided weakness that started in the later part of last week but was seen in the ER in May 2017 leaning to the left and weak. She has multiple, small embolic strokes in multiple vascular territories. 1. GINA shows no evidence of thrombus. MRI shows no significant changes 2. CRP is trending down. 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 I would not treat with steroids at this time. Clinically, she is slowly improving. Afebrile since midnight. Low grade last night. 3. Continue ASA, Statin. Follow up vasculitis labs as they return (send outs) . Source of emboli remains cryptic 4. UA appears to show some evidence of UTI which could be contributing to inflammatory markers. Defer to primary regarding appropriate treatment 5. BP control per Cardiology 6. Activity per Cardiology recommendations. PT/OT, OOB to chair, Incentive spirometry 7. Ok from my standpoint to go to the floor I will be going off service this evening at 5 pm but will discuss and sign out the patient with Dr. Calle Addendum 07.20.17 at 11:30am: The patient had and event this morning around 9:45 am. Had 2 episodes of stool incontinence, blank stare and for a short time became hemiparetic on the left with some neglect as well. When I saw the patient at 10am, she was not moving her left side, was confused but this slowly improved over the next hour and she is currently improving. EEG ordered. I was able to clarify her history with her son. He states that as long ago as last summer, she has been having paroxysmal episodes in which she loses bladder control, stares and is confused for some time. She apparently has had episodes of left sided weakness as well and when she came to the ER in May, he states she had a similar episode prior and had left sided weakness, leaning to the left. No prior history of seizures in the distant past, no risk factors. At this point, I suspect that she has been having seizures for some time, likely idiopathic in nature. The seizures predate her most recent RI and embolic strokes. I suspect the left sided weakness is most likely a Andrea's paralysis related to the seizures and not necessarily related to the most recent embolic strokes as she has a history of similar events in the past. I am going to load her on Keppra 500mg IV X 1 and then start 500mg po bid. She will need to be discharge on seizure medication and I plan to follow her up in clinic as well. Stroke management as noted above. Suspicion for vasculitis is low. I reviewed the images with radiology and there is no CTA evidence for vasculitis with little to no change in her repeat MRI.
[2017-07-20] MEDS: Aspirin Low Dose CHEW TAB* 81 MG PO SCH (09:12)
[2017-07-20] MEDS: Metoprolol Tartrate TAB* 25 MG PO SCH ×2 (09:12→21:27)
--- NOTE | 2017-07-20 09:33 | PN ---
Progress Note - Progress Note Date of Service: 07/20/17 Note: CRITICAL CARE MEDICINE DATE: 07/20/17 TIME: 850 SUBJECTIVE: Patient seen and examined. Doing well. PHYSICAL EXAM: Vital Signs: Reviewed. Neurologic: awake, communicating. left arm and leg stable HEENT: anciteric. mmm Cardiovascular: reg, no m or rub Respiratory: clear Abdomen: soft, nt; no masses Extremities: warm Access: piv LABS: Reviewed. IMAGING: Reviewed. MEDICATIONS: Reviewed. 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 stable. antiplt tx. f/u labs Cardiovascular: perfusing. vol status fine. Hr 70s. cards following, rx. Respiratory: RA Gastrointestinal: po Renal/Metabolic: stable. dc walton Infectious Disease: afeb. ebc stable. asym. but had Ua done on walton. can repeat UA now with walton out to ensure no cauti. Hematology: stable. anti-plt; anticoag needs per cards/neuro. Endocrine: statin. Musculoskeletal: oob. pt. pmru? Psych/Social: pt in good spirits. Supportive and preventative care as ordered. Disposition: floor with tele and consider rehab needs Code Status: Full Critical Care Time: 25min FBelle Nettles DO
[2017-07-20] MEDS: Enoxaparin(*) 40 MG/0.4 ML SYR SUBCUT SCH (11:40)
[2017-07-20] MEDS ORDERED: levETIRAcetam 500 MG IVPREMIX* 500 MG/100 ML BAG IVPB ONE (12:00)
[2017-07-20] MEDS: Atorvastatin* 80 MG TAB PO SCH (17:30)
[2017-07-20] MEDS: levETIRAcetam TAB* 500 MG PO SCH (21:27)
[2017-07-21] MEDS: Metoprolol Tartrate TAB* 25 MG PO SCH ×2 (09:12→20:58)
[2017-07-21] MEDS: Cephalexin CAP* 500 MG PO SCH ×2 (09:12→20:58)
[2017-07-21] MEDS: levETIRAcetam TAB* 500 MG PO SCH ×2 (09:13→20:58)
[2017-07-21] MEDS: Aspirin Low Dose CHEW TAB* 81 MG PO SCH (09:13)
--- NOTE | 2017-07-21 10:08 | PN ---
Progress Note - Progress Note Date of Service: 07/21/17 Note: CRITICAL CARE MEDICINE DATE: 07/20/17 TIME: 920 SUBJECTIVE: Patient seen and examined. Doing well. PHYSICAL EXAM: Vital Signs: Reviewed. Neurologic: awake, communicating. left arm and leg stable HEENT: anciteric. mmm Cardiovascular: reg, no m or rub Respiratory: clear Abdomen: soft, nt; no masses Extremities: warm Access: piv LABS: Reviewed. IMAGING: Reviewed. MEDICATIONS: Reviewed. ASSESSMENT: 66 F Q-wave [place] on admission to shower emboli CVA with mild left hemiparesis ecoli uti HTN New onset seizures PLAN: Neurologic: neuro following. stable. no events with keppra. antiplt tx. dec neuro checks Cardiovascular: perfusing. vol status fine. Hr 70s. cards for outpt f/u, rx. Respiratory: RA Gastrointestinal: po; speech is following up Renal/Metabolic: stable. Infectious Disease: afeb. 3 days keflex for uncomplicated uti Hematology: asa. Endocrine: statin. Musculoskeletal: oob. pt. pmru sunday? Psych/Social: pt in good spirits. Supportive and preventative care as ordered. Disposition: given her dyanmics will likely remain monitored in icu today. Code Status: Full Critical Care Time: 25min FBelle Nettles DO
[2017-07-21] MEDS: Enoxaparin(*) 40 MG/0.4 ML SYR SUBCUT SCH (11:30)
[2017-07-21 16:08] LABS: Sm (Smith) IgG Antibody <0.2 U
[2017-07-21] MEDS: Atorvastatin* 80 MG TAB PO SCH (18:43)
--- NOTE | 2017-07-22 01:12 | PN ---
PROGRESS NOTE: DATE OF SERVICE: 07/21/17 PATIENT OF: Dr. Nettles. I am picking up her care from Dr. Tim. I reviewed her 2 MRI scans and to my eye, the acute strokes look like most likely cardioembolic and that there was no change from the to the . She was started on Keppra yesterday because of a staring spell followed by left- sided weakness with past history of staring spells and confusion. She is on Keppra 500 mg twice a day. OTHER MEDICATIONS: Include her: 1. Aspirin 81 mg daily. 2. Lipitor 80 mg daily. 3. Keflex 500 mg b.i.d. 4. Lopressor 25 mg b.i.d. 5. Nitroglycerin p.r.n. She has no new complaints and states she is doing well. PHYSICAL EXAMINATION: Temperature 98.1, pulse 65, respirations 13, blood pressure 91/64. She is alert and oriented. She had normal speech, comprehension was intact although somewhat slow. She had no visual field deficits to finger. She had 5-/5 strength in the left arm and leg with left pronator drift. Sensation intact. Reflexes 1 and equal. She had intact [id number] except it was slightly slower in the left. Her BRUNA was 0.5, white count 13.7, otherwise normal CBC yesterday. No new chemistries from today. I discussed the game plan of aspirin, statin at this point. Dr. Tim has spoken to the catalog librarian and they feel the embolic shower was a one-time event from her acute cardiac disease and is not going to be ongoing. I discussed during sign out with Dr. Tim that I will be checking a Holter to screen for atrial fibrillation, which would indicate an ongoing tendency and followup will be with Dr. Tim. She has had no further seizures on the Keppra to this point. [id number]/[facility] #: [id number] [facility]
[2017-07-22 05:13] LABS: ABS Basophils 0.1 10^3/ul (0-0.2); ABS Eosinophils 0.3 10^3/ul (0-0.6); ABS Lymphocytes 1.9 10^3/ul (1.0-4.8); ABS Monocytes 1.2 10^3/ul (0-0.8); ABS Neutrophils 8.1 10^3/ul (1.5-7.7); ABS Nucleated RBC 0 10^3/ul; Eosinophil % 2.9 % (0-6); Hematocrit 36 % (35-47); Hemoglobin 11.9 g/dl (12.0-16.0); Lymphocyte % 16.3 % (25-47); Mean Corpuscular HGB Conc 33 g/dl (31-36); Mean Corpuscular Hemoglobin 30 pg (27-31); Mean Corpuscular Volume 92 fL (80-97); Mean Platelet Volume 8 um3 (7.4-10.4); Nucleated Red Blood Cells % 0; Platelet Count 428 10^3/ul (150-450); Red Blood Count 3.93 10^6/ul (4.0-5.4); Red Cell Distribution Width 13 % (10.5-15); White Blood Count 11.6 10^3/ul (3.5-10.8)
[2017-07-22 05:23] LABS: EGFR Non-African American 90.2 (>60)
[2017-07-22] MEDS: Metoprolol Tartrate TAB* 25 MG PO SCH ×2 (09:21→21:01)
[2017-07-22] MEDS: levETIRAcetam TAB* 500 MG PO SCH ×2 (09:21→21:01)
[2017-07-22] MEDS: Aspirin Low Dose CHEW TAB* 81 MG PO SCH (09:21)
[2017-07-22] MEDS: Cephalexin CAP* 500 MG PO SCH ×2 (09:21→21:01)
--- NOTE | 2017-07-22 10:45 | PN ---
Progress Note - Progress Note Date of Service: 07/22/17 Note: CRITICAL CARE MEDICINE DATE: 07/22/17 TIME: 1020 SUBJECTIVE: Patient seen and examined. Doing well. PHYSICAL EXAM: Vital Signs: Reviewed. Neurologic: awake, communicating. left arm and leg stable HEENT: anciteric. mmm Cardiovascular: reg, no m or rub Respiratory: clear Abdomen: soft, nt; no masses Extremities: warm Access: piv LABS: Reviewed. IMAGING: Reviewed. MEDICATIONS: Reviewed. ASSESSMENT: 66 F Q-wave [place] on admission to shower emboli CVA with mild left hemiparesis ecoli uti HTN New onset seizures PLAN: Neurologic: neuro oupt f/u Dr. Tim. stable. no events with keppra - continued. antiplt tx. Cardiovascular: cards for outpt f/u, rx. consider Holter Respiratory: RA Gastrointestinal: po; speech is following up Renal/Metabolic: stable. Infectious Disease: afeb. 3 days keflex for uncomplicated uti Hematology: asa. Endocrine: statin. Musculoskeletal: oob. pt. pmru sunday? Psych/Social: pt in good spirits. Supportive and preventative care as ordered. Disposition: floor with tele Code Status: Full Critical Care Time: 25min Dixie Nettles DO
[2017-07-22] MEDS: Enoxaparin(*) 40 MG/0.4 ML SYR SUBCUT SCH (11:28)
[2017-07-22] MEDS: Atorvastatin* 80 MG TAB PO SCH (16:39)
--- NOTE | 2017-07-22 22:14 | EEG ---
HALFWAY VIDEO/EEG MONITORING - Monitoring Monitoring Start Date: 07/20/17 Current Monitoring Session: 07/20/17 at 10:14 to 14:27 EEG Clinical Indication: This is a 66 year old woman admitted with a myocardial infarction, then found to have embolic strokes and a staring spell with transient left-sided weakness on the morning of this recording. There is apparently a longer history of staring spells as well, concerning for a possible history of undiagnosed seizures. Prolonged EEG was requested to evaluate for epileptiform abnormalities. Introduction: INTRODUCTION: The EEG was monitored from 19 scalp electrodes which consisted of the standard parasagittal, temporal and midline leads of the International 10-20 system. EEG data were recorded on an [employer] system with simultaneous MPEG-4 digital video recording of patient behavior. EEG recording was in a monopolar montage with all electrodes referenced to FCz. Significant behavioral events were signaled by an event button, or putative electrical seizure events were detected by a computer program. All EEG data were reviewed in their entirety on a monitor with reconstruction of montages and adjustments of sensitivity and filtering. Simultaneous patient behavior was viewed on an adjacent monitor and correlated with the EEG. - Medications Active Medications: Aspirin (Aspirin Low Dose Tab*) 81 mg PO DAILY [facility] Last Admin: 07/22/17 09:21 Dose: 81 mg Atorvastatin Calcium (Lipitor*) 80 mg PO 1700 [facility] Last Admin: 07/22/17 16:39 Dose: 80 mg Cephalexin HCl (Keflex Cap*) 500 mg PO BID [facility] Stop: 07/23/17 21:01 Last Admin: 07/22/17 21:01 Dose: 500 mg Enoxaparin Sodium (Lovenox(*)) 40 mg SUBCUT Q24H [facility] Last Admin: 07/22/17 11:28 Dose: 40 mg Levetiracetam (Keppra Tab*) 500 mg PO BID [facility] Last Admin: 07/22/17 21:01 Dose: 500 mg Metoprolol Tartrate (Lopressor Tab*) 25 mg PO BID [facility] Last Admin: 07/22/17 21:01 Dose: 25 mg Nitroglycerin (Nitroglycerin Tab 0.4 Mg*) 0.4 mg SL Q5M PRN PRN Reason: ANGINA - Description Background: The waking background intermittently demonstrated appropriate organization with defined anterior-posterior voltage and frequency gradients. There was a defined posterior dominant rhythm of 8 Hertz, which was symmetrical and showed normal reactivity. Intermittently, anteriorly, there was the expected pattern of lower voltage and more irregular theta and beta rhythms. However, there were frequent periods lasting between 3 and 10 seconds of frontally predominant, intermittent rhythmic delta activity (FIRDA) at 1 to 2 Hz. In addition, there were independent periods of theta range slowing in the left and right temporal regions, which was polymorphic in nature, and overall seen more frequently on the left. In the right temporoparietal region, there were occasional sharp waveforms at P4 and T6 which were not definitively epileptiform in nature. The sleep background was appropriately organized with well-developed spindles and vertex waves indicative of stage 2 sleep. These sleep transients showed appropriate morphology and were bilaterally synchronous and symmetrical. Deeper sleep and REM were not observed. Intericatal Epileptiform Activity: No epileptiform abnormalities were recorded. Ictal Activity: None - Impression Impression: This is an abnormal prolonged EEG. There is frequent FIRDA which was prolonged at times, up to 10 seconds, left greater than right temporal slowing and a slow posterior dominant rhythm. These findings are suggestive of a mild to moderate, non-specific encephalopathy with superimposed left greater than right temporal neuronal dysfunction. There were no definitive epileptiform abnormalities, though a few sharp waveforms were noted on the right which were not epileptiform in nature. There were no seizures during this recording.
--- NOTE | 2017-07-23 04:02 | PN ---
PROGRESS NOTE: DATE OF VISIT: 07/22/17 PATIENT OF: Dr. Nettles. HISTORY: This is a 66-year-old woman who has been transferred out of the unit now and has had no further staring spells or seizures. She feels that her left side is getting a little bit stronger and has been able to do some walking. She notes that when she goes home, she will be going home to her 2 sons. She has no new complaints. MEDICATIONS: Include: 1. Keppra 500 twice a day. 2. Nitroglycerin p.r.n. 3. Lopressor 25 b.i.d. 4. Lovenox 40 mg subcu. 5. Keflex 500 b.i.d. 6. Lipitor 80 mg daily. 7. Aspirin 81 mg daily. PHYSICAL EXAMINATION: Temperature 98.7, pulse 77, respiratory rate 16, blood pressure 100/65. She is alert and oriented with normal speech and comprehension. Cranial nerves II through XII are intact. She had 5-/5 strength in the left arm and leg. She reaches for objects smoothly either hand. Chest: Clear. Cardiovascular: Regular rate and rhythm. Abdomen is soft with positive bowel sounds. LABORATORY DATA: Include a white count of 11.6 today, hemoglobin of 11.9. Chemistries show normal BMP other than a glucose of 101 and a BUN and creatinine ratio of 22. Anticardiolipin antibodies are negative. Cryoglobulin is pending. ASSESSMENT AND PLAN: Angela is improving from her stroke and she has had no further possible seizures. She will need a Keppra level in 3 or 4 weeks' time and then followup with Dr. Tim after that. Please call me if her clinical status changes while she is in the hospital. Thank you for sharing her case. [id number]/[facility] #: [id number] JUAN MANUEL
[2017-07-23] MEDS: levETIRAcetam TAB* 500 MG PO SCH ×2 (09:59→21:49)
[2017-07-23] MEDS: Aspirin Low Dose CHEW TAB* 81 MG PO SCH (09:59)
[2017-07-23] MEDS: Cephalexin CAP* 500 MG PO SCH ×2 (09:59→21:49)
[2017-07-23] MEDS: Metoprolol Tartrate TAB* 25 MG PO SCH ×2 (11:01→23:53)
[2017-07-23] MEDS: Enoxaparin(*) 40 MG/0.4 ML SYR SUBCUT SCH (11:13)
[2017-07-23] MEDS: Atorvastatin* 80 MG TAB PO SCH (17:10)
--- NOTE | 2017-07-23 19:01 | PN ---
Subjective Date of Service: 07/23/17 Interval History: Stepped down from ICU yesterday. PMRU pre-cert pending. Blood pressures soft, SBP often high 80s-90s, asymptomatic. Denies chest pain, SOB other complaints other than some left hand weakness. Lives with her sons No hx of Afib. May need holter. Left sided fatigue and needing verbal cues with PT. Objective Active Medications: Aspirin (Aspirin Low Dose Tab*) 81 mg PO DAILY [facility] Last Admin: 07/23/17 09:59 Dose: 81 mg Atorvastatin Calcium (Lipitor*) 80 mg PO 1700 [facility] Last Admin: 07/23/17 17:10 Dose: 80 mg Cephalexin HCl (Keflex Cap*) 500 mg PO BID [facility] Stop: 07/23/17 21:01 Last Admin: 07/23/17 09:59 Dose: 500 mg Enoxaparin Sodium (Lovenox(*)) 40 mg SUBCUT Q24H [facility] Last Admin: 07/23/17 11:13 Dose: 40 mg Levetiracetam (Keppra Tab*) 500 mg PO BID [facility] Last Admin: 07/23/17 09:59 Dose: 500 mg Metoprolol Tartrate (Lopressor Tab*) 25 mg PO BID [facility] Last Admin: 07/23/17 11:01 Dose: Not Given Nitroglycerin (Nitroglycerin Tab 0.4 Mg*) 0.4 mg SL Q5M PRN PRN Reason: ANGINA Vital Signs - 8 hr 07/23/17 07/23/17 12:01 15:56 Temperature 98.1 F Pulse Rate 66 78 Respiratory 16 16 Rate Blood Pressure 92/61 89/58 (mmHg) O2 Sat by Pulse 98 97 Oximetry Oxygen Devices in Use Now: None Appearance: NAD, lying in bed. Neck: NL Appearance and Movements; NL JVP Respiratory: Symmetrical Chest Expansion and Respiratory Effort, Clear to Auscultation Cardiovascular: NL Sounds; No Murmurs; No JVD, RRR Abdominal: NL Sounds; No Tenderness; No Distention, No Hepatosplenomegaly Extremities: No Edema, No Clubbing, Cyanosis Skin: No Rash or Ulcers, No Nodules or Sclerosis Neurological: Alert and Oriented x 3, NL Sensation, NL Muscle Strength and Tone Result Diagrams: 07/22/17 05:00 07/22/17 05:00 Additional Lab and Data: Laboratory Results - last 24 hr 07/19/17 17:20 PT 12.5 INR 1.1 Lupus Anticoag aPTT 31 dRVVT Screen Ratio 1.0 Lupus Anticoag Interp See comment Cryoglobulin Negative Microbiology and Other Data: Microbiology 07/20/17 15:30 Urine Urine Culture - Final Escherichia Coli 07/16/17 15:30 Blood Venous Aerobic Blood Culture - Final No Growth Day 5 07/16/17 15:30 Blood Venous Anaerobic Blood Culture - Final No Growth Day 5 07/16/17 14:00 Blood Venous Aerobic Blood Culture - Final No Growth Day 5 07/16/17 14:00 Blood Venous Anaerobic Blood Culture - Final No Growth Day 5 07/19/17 08:45 Urine Urine Culture - Final Escherichia Coli 07/17/17 17:53 Nasal Influenza Types A,B Antigen (JOEY) - Final Specimen received for Influenza A/B Molecular testing 07/17/17 06:10 Throat Group A Streptococcus Rapid Screen - Final Specimen received for Rapid Strep A Molecular testing Assess/Plan/Problems-Billing 66 yo female PMH HTN p/w subacute episodes of left sided weakness (Andrea's paralysis 2/2 seizures?) and STEMI inability to traverse 100% occluded OM, shower emboli CVA and Ecoli UTI and suspected seizures. Awaiting insurance auth for PM vs other SNF. - Patient Problems (1) SD (myocardial infarction) Current Visit: Yes Status: Acute Code(s): I21.9 - ACUTE MYOCARDIAL INFARCTION, UNSPECIFIED SNOMED Code(s): 80219285 Comment: STEMI 100% occluded OM, unable to be traversed. LAD 35%, PDA 60%. Medical managment TTE EF 35-40%, GINA EF 45-50% continue atorvastatin 80mg daily continue aspirin 81mg daily continue metoprolol 25mg BID (2) CVA (cerebral vascular accident) Current Visit: Yes Status: Acute Code(s): I63.9 - CEREBRAL INFARCTION, UNSPECIFIED SNOMED Code(s): 438438297 Comment: MRI 07/19 with punctate infarcts, suspcion for shower emboli. GINA w/o of thrombus or vegetations. consideration for holter or loop recorder. no hx of Afib. residual left sided weakness. PMRU referrral. (3) Seizures Current Visit: Yes Status: Acute Code(s): R56.9 - UNSPECIFIED CONVULSIONS SNOMED Code(s): 73492808 Comment: continue keppra 500mg BID appreciate neurology recs. (4) HTN (hypertension) Current Visit: Yes Status: Acute Code(s): I10 - ESSENTIAL (PRIMARY) HYPERTENSION SNOMED Code(s): 43604692 Comment: continue BB (5) HLD (hyperlipidemia) Current Visit: Yes Status: Acute Code(s): E78.5 - HYPERLIPIDEMIA, UNSPECIFIED SNOMED Code(s): 74286554 Comment: continue statin (6) UTI (urinary tract infection) Current Visit: Yes Status: Acute Comment: on cephalexin . Status and Disposition: medicine inpatient awaiting PMRU vs SNF placement. Attending: Adam Tejada
[2017-07-23] MEDS ORDERED: Metoprolol Tartrate TAB* 25 MG PO ONE (23:00)
[2017-07-24] MEDS: levETIRAcetam TAB* 500 MG PO SCH (08:33)
[2017-07-24] MEDS: Aspirin Low Dose CHEW TAB* 81 MG PO SCH (08:33)
[2017-07-24] MEDS: Metoprolol Tartrate TAB* 25 MG PO SCH (08:34)
[2017-07-24] MEDS: Enoxaparin(*) 40 MG/0.4 ML SYR SUBCUT SCH (11:04)
[2017-07-24 11:43] VITALS: BP 111/67
--- NOTE | 2017-07-25 12:45 | DS ---
DISCHARGE SUMMARY: DATE OF ADMISSION: 07/16/17 DATE OF DISCHARGE: ADMITTING PROVIDER: Denton Greenwood MD. CRITICAL CARE PHYSICIAN: Herb Nettles DO. ATTENDING PHYSICIAN: Adam Tejada MD. PRIMARY CARE PHYSICIAN: Florence Newton MD. NEUROLOGIST: Vincent Tim MD. CHIEF COMPLAINT: Chest discomfort, weakness. PRINCIPAL DIAGNOSES: ST elevation myocardial infarction; cerebrovascular accidents; seizures. HISTORY OF PRESENT ILLNESS AND HOSPITAL COURSE: Angela Dahl is a 66-year-old female. PMH, hype rtension. No other cardiac history. A week prior to admission, she started developing intermittent chest discomfort, waxing and waning pressure like, this progressed to extreme weakness and inability to get up and about, poor appetite. When son saw the patient on day of admission, he brought her to the emergency room. EKG showed Q waves in the inferior leads with ST segment elevation in V4 through V6, some reciprocal changes in V2. A STEMI alert was called. Of note, she denied any specific ches t, throat, jaw or arm discomfort at the time or significant shortness of breath, nausea or vomiting. A bedside echocardiogram showed hypokinesis in the inferoposterior wall. Troponin was 29.8, CPK 35 4, and Dr. Greenwood proceeded with cardiac catheterization. Left heart cath revealed significant coron sherry artery disease involving a totally occluded first obtuse marginal branch thought most likely the culprit vessel and a very small caliber left-sided PDA with 60% blockage. Attempts to probe the tota lly occluded obtuse marginal were unsuccessful and suggested there was possibly a subacute event and medical management was therefore pursued with initiation of aspirin, beta-blockers, statin therapy. Dr. Vincent Tim was consulted given the history of left-sided weakness. She reported that she h ad actually been having the weakness in the left leg for over the last week. On review of the prior CT head, 05/07/17, Dr. Tim felt there was chronic bilateral basal ganglia infarcts with chronic left occipital infarct. On this exam, she did have focal left-sided findings suggestive of stroke, but u nclear of new verus old stroke. She had a brain MRI without contrast on 07/17/17, which was consiste nt with acute multifocal emboli involving the right cerebellum and and bilateral cerebral hemispheres along with chronic microvascular disease and bilateral basal ganglia infarctions. She had a GINA, wh ich showed no evidence of thrombus. She had a carotid ultrasound showing low echogenic plaque in the bilateral bulb, stenosis in the 50% to 60% range on the right. ESR, CRP, BRUNA, C3, C4, ANCA to evalu ate for C and S vasculitis were ordered. Cryoglobulin was negative. Proteinase 3 was negative. Mye loperoxidase antibody was negative. Ro, La, Quinones, gkhp-jxmyzu-pfekusfa DNA was negative. Anticardi olipin within normal limits. Complement C3 was 139 and C4 20, but within normal limits. Lupus antic oagulant did not show any evidence of a lupus-like anticoagulant. The patient was noted to have epis odes of stool incontinence and blank stares and with episodes of hemiparesis in the left with neglect . An EEG was ordered, this was on the morning of July 20. Keppra was initiated. There was recom mendation to pursue a Holter monitor as an outpatient to rule out any atrial fibrillation, which was not observed on telemetry nor does the patient have a history of. The patient was found in the ICU t o have evidence of a urinary tract infection with E. coli and was given a 3-day course of Keflex. E. coli was greater than 100,000 units, pansensitive. She had no other episodes of staring spells. Pl an was to get a Keppra level in 3 to 4 weeks' time and follow with Dr. Tim. She was transferred out of the ICU and continued to work with physical therapy and is now being discharged to a PMR unit for further rehabilitation. She required some cueing and she had some left-sided weakness the day prior to discharge. DISCHARGE MEDICATIONS: Include: 1. Aspirin 81 mg daily. 2. Atorvastatin 80 mg p.o. daily. 3. Keppra 500 mg p.o. b.i.d. 4. Metoprolol tartrate 25 mg p.o. b.i.d. DISCHARGE DIET: Heart healthy. ACTIVITY LEVEL: The patient will receive physical therapy in [facility]. No restrictions. FOLLOWUP: Please follow up with Dr. Newton within 5 days of discharge from [facility], Dr. uJan Tim, Neurology within 1 to 2 weeks. She should get a levetiracetam level within 2 to 4 weeks, and she ne eds to follow up with her chief building inspector for consideration for Holter monitoring to rule out paroxysmal atrial fibrillation as a cardiogenic cause of her shower emboli strokes. TIME SPENT ON DISCHARGE: 45 minutes. [id number]/[facility] #: [id number]
== END 2017-07-24 13:35 | DRG 190 ==
LOC: ED 09:04 → CHICATH 10:35 → ICU 12:48 → MEDTELE 07-22 10:56 → PMRU 07-24 13:42
PROVIDERS: ADMIT Internal Medicine Cardiovascular Disease; ATTEND Internal Medicine
PROC: 4A023N7 Measurement of Cardiac Sampling and Pressure, Left Heart, Percutaneous Approach (ICD-10-PCS; 2017-07-16)
PROC: B2111ZZ Fluoroscopy of Multiple Coronary Arteries using Low Osmolar Contrast (ICD-10-PCS; principal; 2017-07-16 10:00)
PROC: B24BZZ4 Ultrasonography of Heart with Aorta, Transesophageal (ICD-10-PCS; 2017-07-19)
PROC: 4A10X4Z Monitoring of Central Nervous Electrical Activity, External Approach (ICD-10-PCS; 2017-07-20)
DX: I21.3 ST elevation (STEMI) myocardial infarction of unspecified site (principal); I63.9 Cerebral infarction, unspecified; G81.94 Hemiplegia, unspecified affecting left nondominant side; N39.0 Urinary tract infection, site not specified; I10 Essential (primary) hypertension; I25.10 Atherosclerotic heart disease of native coronary artery without angina pectoris; I65.23 Occlusion and stenosis of bilateral carotid arteries; D72.829 Elevated white blood cell count, unspecified; B96.20 Unspecified Escherichia coli [E. coli] as the cause of diseases classified elsewhere; R56.9 Unspecified convulsions; E78.5 Hyperlipidemia, unspecified; Z82.49 Family history of ischemic heart disease and other diseases of the circulatory system; Z87.440 Personal history of urinary (tract) infections; Z79.82 Long term (current) use of aspirin
CPT/HCPCS: 36415; 70496; 70498; 70551; 70553; 71045; 80048; 80053; 80061; 81003; 81015; 82550; 82553; 82595; 82607; 82746; 83090; 83516; 83605; 83721; 83880; 84146; 84155; 84165; 84439; 84443; 84484; 85025; 85610; 85613; 85652; 85730; 86038; 86140; 86141; 86146; 86147; 86160; 86225; 86235; 87040; 87077; 87086; 87186; 87502; 87651; 93005; 93306; 93308; 93312; 93325; 93458; 93880; 95813; 99156; 99285; A9270-GY; A9579; C1725; C1769; C1887; J1644; J1650; J2250; J2310; J2405; J3010; J3490; Q9967

== ENCOUNTER 2017-07-24 11:33 | Inpatient (IN) | payer BC ==
[2017-07-24] MEDS ORDERED: Acetaminophen TAB* 325 MG PO PRN (16:33)
[2017-07-24] MEDS ORDERED: Senna TAB PO PRN (16:33)
[2017-07-24] MEDS ORDERED: Magnesium Hydroxide LIQ* 30 ML UDC PO PRN (16:33)
[2017-07-24] MEDS ORDERED: Nitroglycerin TAB 0.4 MG* 0.4 MG TAB SL PRN (16:43)
[2017-07-24] MEDS: Atorvastatin* 80 MG TAB PO SCH (17:15)
[2017-07-24] MEDS: levETIRAcetam TAB* 500 MG PO SCH (21:08)
[2017-07-24] MEDS: Metoprolol Tartrate TAB* 25 MG PO SCH (21:08)
[2017-07-24] MEDS: Docusate CAP* 100 MG PO SCH (21:08)
--- NOTE | 2017-07-24 21:14 | HP ---
ADMISSION HISTORY AND PHYSICAL: DATE OF ADMISSION: 07/24/17 REASON FOR ADMISSION: Stroke with left-sided weakness. HISTORY OF PRESENT ILLNESS: Angela Dahl is a 66-year-old female. She has a medical history that is significant only for hypertension. The patient was having chest discomfort on and off in the second week of July. She started to feel weak on Sunday and Sunday, the and 15 of July. On the 16 of July, her son came to visit her and felt she was often brought into the emergency room. They did an EKG, which showed Q waves in the inferior leads as well as ST segment elevation in leads V4 through V6. She had an echocardiogram showing hypokinesis of the inferoposterior wall. She had a troponin drawn, which came back at 29.8. She was admitted to the hospital and given a heparin bolus and a full dose aspirin. A decision was made to take her to the cardiac woods laborer. In the meantime, she had an echocardiogram showing an ejection fraction of 45%. She went for a cardiac cath on 07/16/17. She was found to have total occlusion in the first obtuse marginal branch of the circumflex. She also had a third thin obtuse marginal branch with approximately 60% stenosis. The LAD did not have significant disease. It was felt that she should be continued on medical management with aspirin therapy, statin therapy and a beta-luma. She was also noted to have left-sided weakness in the emergency room. After she went to the cardiac woods laborer, she had a neurology consultation. Neurology felt that she might have had previous strokes, but felt that she needed new imaging. She had a MRI of her brain done on 07/19/17. The MRI showed punctate areas of restriction of diffusion throughout both cerebral hemispheres and in the right cerebellum. This was consistent with tiny infarcts. It was felt that these were shower emboli after her heart attack. Also of note was that on 07/20/17, the patient had an episode of staring and then became hemiparetic on the left with some left-sided neglect, but this improved somewhat. An EEG was ordered. According to the son, she was having these episodes of staring for quite some time, going back to last summer. They were accompanied by episodes of incontinence. She was started on Keppra 500 mg twice a day. The patient still has left-sided weakness. After the Keppra was started, she had no more staring episodes seen. It was felt that she had physical therapy, occupational therapy and possibly speech therapy needs. She is now being admitted for inpatient rehab so that she might return to independent living. PAST MEDICAL HISTORY: Significant for hypertension. CURRENT MEDICATIONS: Include: 1. Aspirin. 2. Lipitor. 3. Lopressor. 4. Lovenox for DVT prophylaxis. 5. Keppra for seizure prophylaxis. 6. Bowel medications. ALLERGIES: The patient has no known drug allergies. SOCIAL HISTORY: She is a nonsmoker, nondrinker. She does work at [employer]. 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 She lives in a one-kathy house with her sons. There are 3 steps to enter. REVIEW OF SYSTEMS: The patient reports no current shortness of breath or chest pain. PHYSICAL EXAMINATION VITAL SIGNS: The patient's temperature is 98.2, blood pressure is 122/61, pulse is 86, respirations 14. HEENT: Her extraocular movements are intact. NECK: Supple. LUNGS: Sound clear to auscultation bilaterally. HEART: Sounds are regular. S1, and S2 are audible. ABDOMEN: Soft and nontender. EXTREMITIES: Peripheral pulses are intact. No edema was noted. NEUROLOGIC: She is awake, alert, oriented. Muscle strength was about 4/5 on the left and 5/5 on the right. Her left leg appears to be weaker than her left arm. Her functional exam, the patient transfers with contact guard to min assist. ASSESSMENT: 1. Cerebrovascular accident from shower emboli following a myocardial infarct. 2. Seizure disorder. PLAN: We are going to integrate the patient into a comprehensive and therapeutic rehab program. We will have the following goals: 1. Physical Therapy will work with the patient. They are going to work on functional transfer training and ambulation training with a walker. 2. Occupational Therapy will see the patient, work on her activities of daily living including toileting and toilet transfers. 3. Speech Therapy to evaluate the patient and do a cognitive screen. 4. Lovenox for DVT prophylaxis. 5. For the myocardial infarct, we are going to continue medical management with aspirin, beta-luma and Lipitor. 6. For seizure disorder, we are going to continue her Keppra. 7. SSRIs as indicated including for neurologic recovery. 8. Family training as appropriate. 9. central services tech will be closely involved to make sure that any services and equipment the patient requires are in place prior to discharge. 10. Advance directives: The patient is a full code. 11. Home with appropriate services. ESTIMATED LENGTH OF STAY: Ten to twelve days. [id number]/[facility] #: [id number] JUAN MANUEL
[2017-07-25 06:15] LABS: ABS Basophils 0.1 10^3/ul (0-0.2); ABS Eosinophils 0.3 10^3/ul (0-0.6); ABS Lymphocytes 1.7 10^3/ul (1.0-4.8); ABS Monocytes 1.3 10^3/ul (0-0.8); ABS Neutrophils 12.1 10^3/ul (1.5-7.7); ABS Nucleated RBC 0 10^3/ul; Eosinophil % 1.7 % (0-6); Hematocrit 36 % (35-47); Hemoglobin 12.4 g/dl (12.0-16.0); Mean Corpuscular HGB Conc 34 g/dl (31-36); Mean Corpuscular Hemoglobin 31 pg (27-31); Mean Corpuscular Volume 90 fL (80-97); Mean Platelet Volume 8 um3 (7.4-10.4); Nucleated Red Blood Cells % 0.1; Platelet Count 487 10^3/ul (150-450); Red Blood Count 4.01 10^6/ul (4.0-5.4); Red Cell Distribution Width 13 % (10.5-15); White Blood Count 15.4 10^3/ul (3.5-10.8)
[2017-07-25 06:35] LABS: INR 1.06 (0.77-1.02)
[2017-07-25 06:37] LABS: EGFR Non-African American 84.2 (>60)
[2017-07-25] MEDS: Docusate CAP* 100 MG PO SCH ×2 (08:32→19:58)
[2017-07-25] MEDS: Metoprolol Tartrate TAB* 25 MG PO SCH ×2 (08:59→20:58)
[2017-07-25] MEDS: Aspirin Low Dose CHEW TAB* 81 MG PO SCH (08:59)
[2017-07-25] MEDS: levETIRAcetam TAB* 500 MG PO SCH ×2 (08:59→20:59)
[2017-07-25] MEDS: Enoxaparin(*) 40 MG/0.4 ML SYR SUBCUT SCH (09:00)
[2017-07-25] MEDS: Atorvastatin* 80 MG TAB PO SCH (16:42)
--- NOTE | 2017-07-25 19:42 | PN ---
Progress Note - Progress Note Date of Service: 07/25/17 Note: Angela visited. Therapy notes reviewed. She had some difficulty with minor confusion last night, but the change of location may have had something to do with this. Was incontinent. No seizure activity noted, no episodes of staring. No chest pain. Current Medications Acetaminophen (Tylenol Tab*) 650 mg PO Q6H PRN PRN Reason: FEVER/PAIN Aspirin (Aspirin Low Dose Tab*) 81 mg PO DAILY [facility] Last Admin: 07/25/17 08:59 Dose: 81 mg Atorvastatin Calcium (Lipitor*) 80 mg PO 1700 [facility] Last Admin: 07/25/17 16:42 Dose: 80 mg Docusate Sodium (Colace Cap*) 100 mg PO BID [facility] Last Admin: 07/25/17 08:32 Dose: Not Given Enoxaparin Sodium (Lovenox(*)) 40 mg SUBCUT Q24H [facility] Last Admin: 07/25/17 09:00 Dose: 40 mg Influenza Virus Vaccine (Fluarix *Quad* *) 0.5 ml IM .ONCE ONE Stop: 07/26/17 09:01 Levetiracetam (Keppra Tab*) 500 mg PO BID [facility] Last Admin: 07/25/17 08:59 Dose: 500 mg Magnesium Hydroxide (Milk Of Magnjere Liq*) 30 ml PO Q6H PRN PRN Reason: CONSTIPATION Metoprolol Tartrate (Lopressor Tab*) 25 mg PO BID [facility] Last Admin: 07/25/17 08:59 Dose: 25 mg Nitroglycerin (Nitroglycerin Tab 0.4 Mg*) 0.4 mg SL Q5M PRN PRN Reason: ANGINA Senna (Senokot Tab*) 2 tab PO BEDTIME PRN PRN Reason: CONSTIPATION Laboratory Results - last 24 hr 07/25/17 07/25/17 07/25/17 05:55 05:56 05:56 WBC 15.4 H RBC 4.01 Hgb 12.4 Hct 36 MCV 90 MCH 31 MCHC 34 RDW 13 Plt Count 487 H D MPV 8 Neut % (Auto) 78.4 Lymph % (Auto) 11.0 L Braxton % (Auto) 8.4 Eos % (Auto) 1.7 Baso % (Auto) 0.5 Absolute Neuts (auto) 12.1 H Absolute Lymphs (auto) 1.7 Absolute Monos (auto) 1.3 H Absolute Eos (auto) 0.3 Absolute Basos (auto) 0.1 Absolute Nucleated RBC 0 Nucleated RBC % 0.1 INR (Anticoag Therapy) 1.06 H Sodium 137 Potassium 4.1 Chloride 104 Carbon Dioxide 26 Anion Gap 7 BUN 15 Creatinine 0.70 Est GFR ( Amer) 108.3 Est GFR (Non-Af Amer) 84.2 BUN/Creatinine Ratio 21.4 H Glucose 101 H Calcium 9.2 Total Bilirubin 0.40 AST 18 ALT 23 Alkaline Phosphatase 79 Total Protein 6.5 Albumin 3.3 Globulin 3.2 Albumin/Globulin Ratio 1.0 Vital Signs Temp Pulse Resp BP Pulse Ox 98.6 F 69 16 118/77 98 07/25/17 15:22 07/25/17 15:22 07/25/17 16:49 07/25/17 15:22 07/25/17 16:49 EXAM: LUNGS: Clear bilaterally HEART: Reg rhythm ABDOMEN: Soft, +BS EXTREMITIES: No edema NEUROLOGIC: Left LE: 4/5, left UE: 4+/5 ASSESSMENT/PLAN: 1. STEMI, 100% Occluded first obtuse marginal: Medical management, per cardiology. Lipitor/ASA/Lopressor 2. 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 Seizure disorder: Keppra. 4. DVT Prophylaxis: Lovenox 5. Advanced directives: Full code
[2017-07-26] MEDS ORDERED: Influenza VAC *QUAD* 2017-18* 0.5 ML SYRINGE IM ONE (09:00)
[2017-07-26] MEDS: Hydrocortisone 1% CREAM* 30 GM TUBE TOPICAL SCH ×2 (09:26→20:10)
[2017-07-26] MEDS: levETIRAcetam TAB* 500 MG PO SCH ×2 (09:26→20:05)
[2017-07-26] MEDS: Aspirin Low Dose CHEW TAB* 81 MG PO SCH (09:26)
[2017-07-26] MEDS: Metoprolol Tartrate TAB* 25 MG PO SCH ×2 (09:27→20:05)
[2017-07-26] MEDS: Docusate CAP* 100 MG PO SCH ×2 (09:28→20:10)
[2017-07-26] MEDS: Enoxaparin(*) 40 MG/0.4 ML SYR SUBCUT SCH (09:28)
--- NOTE | 2017-07-26 15:30 | PN ---
Progress Note - Progress Note Date of Service: 07/26/17 Note: Angela visited. Therapy notes read and reviewed. She has a little more left neglect and left leg weakness noted today. Will review with team tomorrow. BP slightly low this am. May need to decrease Lopressor to 12.5 Current Medications Acetaminophen (Tylenol Tab*) 650 mg PO Q6H PRN PRN Reason: FEVER/PAIN Aspirin (Aspirin Low Dose Tab*) 81 mg PO DAILY [facility] Last Admin: 07/26/17 09:26 Dose: 81 mg Atorvastatin Calcium (Lipitor*) 80 mg PO 1700 [facility] Last Admin: 07/25/17 16:42 Dose: 80 mg Docusate Sodium (Colace Cap*) 100 mg PO BID [facility] Last Admin: 07/26/17 09:28 Dose: Not Given Enoxaparin Sodium (Lovenox(*)) 40 mg SUBCUT Q24H [facility] Last Admin: 07/26/17 09:28 Dose: 40 mg Hydrocortisone (Hytone Cream 1%*) 1 applic TOPICAL BID [facility] Last Admin: 07/26/17 09:26 Dose: 1 applic Levetiracetam (Keppra Tab*) 500 mg PO BID [facility] Last Admin: 07/26/17 09:26 Dose: 500 mg Magnesium Hydroxide (Milk Of Magnjere Liq*) 30 ml PO Q6H PRN PRN Reason: CONSTIPATION Metoprolol Tartrate (Lopressor Tab*) 25 mg PO BID [facility] Last Admin: 07/26/17 09:27 Dose: 25 mg Nitroglycerin (Nitroglycerin Tab 0.4 Mg*) 0.4 mg SL Q5M PRN PRN Reason: ANGINA Senna (Senokot Tab*) 2 tab PO BEDTIME PRN PRN Reason: CONSTIPATION Vital Signs Temp Pulse Resp BP Pulse Ox 97.4 F 87 16 98/66 97 07/26/17 09:30 07/26/17 09:30 07/26/17 09:30 07/26/17 09:30 07/26/17 09:30 EXAM: LUNGS: Clear bilaterally HEART: Reg rhythm ABDOMEN: Soft, +BS EXTREMITIES: No edema NEUROLOGIC: Left LE: 4/5, left UE: 4+/5 ASSESSMENT/PLAN: 1. STEMI, 100% Occluded first obtuse marginal: Medical management, per cardiology. Lipitor/ASA/Lopressor 2. 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 Seizure disorder: Keppra. 4. Leukocytosis: appears chronic 5. DVT Prophylaxis: Lovenox 6. Advanced directives: Full code
[2017-07-26] MEDS: Atorvastatin* 80 MG TAB PO SCH (17:00)
[2017-07-27] MEDS: Metoprolol Tartrate TAB* 25 MG PO SCH ×2 (08:15→20:23)
[2017-07-27] MEDS: levETIRAcetam TAB* 500 MG PO SCH ×2 (08:15→20:23)
[2017-07-27] MEDS: Enoxaparin(*) 40 MG/0.4 ML SYR SUBCUT SCH (08:15)
[2017-07-27] MEDS: Aspirin Low Dose CHEW TAB* 81 MG PO SCH (08:15)
[2017-07-27] MEDS: Docusate CAP* 100 MG PO SCH ×2 (08:16→20:27)
[2017-07-27] MEDS: Hydrocortisone 1% CREAM* 30 GM TUBE TOPICAL SCH ×2 (08:16→20:27)
--- NOTE | 2017-07-27 10:30 | PN ---
Progress Note - Progress Note Date of Service: 07/27/17 Note: Nursing and therapy notes reviewed. She feels good today, but apparently yesterday afternoon and overnight seemed a bit weaker on the left. No issues this morning. No chest pain, shortness of breath or abdominal pain. Rash on chest is less itchy and getting better. Acetaminophen (Tylenol Tab*) 650 mg PO Q6H PRN PRN Reason: FEVER/PAIN Aspirin (Aspirin Low Dose Tab*) 81 mg PO DAILY [facility] Last Admin: 07/27/17 08:15 Dose: 81 mg Atorvastatin Calcium (Lipitor*) 80 mg PO 1700 [facility] Last Admin: 07/26/17 17:00 Dose: 80 mg Docusate Sodium (Colace Cap*) 100 mg PO BID [facility] Last Admin: 07/27/17 08:16 Dose: Not Given Enoxaparin Sodium (Lovenox(*)) 40 mg SUBCUT Q24H [facility] Last Admin: 07/27/17 08:15 Dose: 40 mg Hydrocortisone (Hytone Cream 1%*) 1 applic TOPICAL BID [facility] Last Admin: 07/27/17 08:16 Dose: Not Given Levetiracetam (Keppra Tab*) 500 mg PO BID [facility] Last Admin: 07/27/17 08:15 Dose: 500 mg Magnesium Hydroxide (Milk Of Magnesia Liq*) 30 ml PO Q6H PRN PRN Reason: CONSTIPATION Metoprolol Tartrate (Lopressor Tab*) 25 mg PO BID [facility] Last Admin: 07/27/17 08:15 Dose: 25 mg Nitroglycerin (Nitroglycerin Tab 0.4 Mg*) 0.4 mg SL Q5M PRN PRN Reason: ANGINA Senna (Senokot Tab*) 2 tab PO BEDTIME PRN PRN Reason: CONSTIPATION Vital Signs 07/26/17 07/26/17 07/26/17 15:25 18:10 22:47 Temperature 97.8 F 98.3 F Pulse Rate 66 69 Respiratory 16 Rate Blood Pressure 95/59 108/69 (mmHg) O2 Sat by Pulse 100 100 Oximetry 07/26/17 07/27/17 07/27/17 23:25 05:42 08:00 Temperature 98.0 F Pulse Rate 72 Respiratory 16 16 18 Rate Blood Pressure 110/67 (mmHg) O2 Sat by Pulse 97 97 Oximetry EXAM: GEN: no acute distress. alert and appropriate. LUNGS: Clear bilaterally HEART: Regular rate and rhythm ABDOMEN: Soft, +BS, non-tender, non-distended EXTREMITIES: No edema NEUROLOGIC: CN II-XII intact. RUE/RLE motor 5/5. LUE/LLE motor 4/5. Sensation intact x4. SKIN: mild blanching papular rash on chest ASSESSMENT/PLAN: 66yo woman with STEMI, multiple embolic CVAs without clear source and newly diagnosed seizure disorder. 1. STEMI, 100% Occluded first obtuse marginal: Medical management, per cardiology. Lipitor/ASA/Lopressor 2. 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 Seizure disorder: continue Keppra. 4. Leukocytosis: had UTI with Ecoli during acute hospital stay and WBCs seemed to be resolving, but elevated on 07/25/17. Recheck CBC this AM and consider need for work up. 5. DVT Prophylaxis: Lovenox 6. Advanced directives: Full code. 7. Estimated LOS: IPOC today.
[2017-07-27 11:07] LABS: ABS Basophils 0 10^3/ul (0-0.2); ABS Eosinophils 0.3 10^3/ul (0-0.6); ABS Monocytes 0.8 10^3/ul (0-0.8); ABS Neutrophils 11.7 10^3/ul (1.5-7.7); ABS Nucleated RBC 0 10^3/ul; Eosinophil % 1.9 % (0-6); Hematocrit 38 % (35-47); Hemoglobin 12.6 g/dl (12.0-16.0); Lymphocyte % 13.6 % (25-47); Mean Corpuscular HGB Conc 33 g/dl (31-36); Mean Corpuscular Hemoglobin 30 pg (27-31); Mean Corpuscular Volume 91 fL (80-97); Mean Platelet Volume 8 um3 (7.4-10.4); Nucleated Red Blood Cells % 0; Platelet Count 591 10^3/ul (150-450); Red Blood Count 4.19 10^6/ul (4.0-5.4); Red Cell Distribution Width 13 % (10.5-15); White Blood Count 14.9 10^3/ul (3.5-10.8)
--- NOTE | 2017-07-27 12:39 | PMRUTEAM ---
PMRU: Goals Current Status: Nursing: Current Status Skin Deviations [Buttocks] Other Skin Deviations [Chest] Rash Skin Deviation Description [ blanchable redness lotion applied Buttocks] Skin Deviation Description [ very light pink and no longer itches Chest] Physical Therapy: Current Status Bed Mobility Assistance Supervision Transfer Moblility Assistance contact guard Transfer/Bed Mobility Rolling Walker Recommended Devices Ambulation Assistance Contact Guard Assist Ambulation Assistive Devices Rolling Walker Number of Feet Patient 150' Ambulated Stairs Assistance not tested Stairs Recommended Devices One Rail,Two Rails Number of Stairs 5 x 2 Occupational Therapy: Current Status Upper Body Dressing Supervision Lower Body Dressing Supervision,Contact Guard Assist Bathing Min Assist Toileting Min Assist Toilet Transfer Contact Guard Assist Shower Transfer Contact Guard Assist Eating Independent Rec Therapy: Current Status Summary of Assessment and Pt. was open to conversation, engaged throughout. Clinical Impression Pt. identified with interests and active invovlement in them prior to admission. Pt. states she enjoys her life very much. Pt. was interested in continued leisure visits while on the unit. Treatment Goals Pt. will engage in leisure activities while on the unit. Treatment Plan Provide RT services and encourage involvement. Social Work: Current Status Discharge Plan return home with home care svs and family support Anticipated Discharge Home Destination Discharge With home care svs and family support Speech: Current Status Assessment Pt demonstrated mild-moderate cognitive- communication deficits. Goals: Physical Therapy: Initial Goals Bed Mobility Assistance Independent Transfer Mobility Assistance Independent Transfer/Bed Mobility Rolling Walker Recommended Devices Ambulation Independent Ambulation Recommended Devices Rolling Walker Ambulation Distance 150 Stairs Assistance Independent Stair Recommended Devices One Rail Number of Stairs 10 Occupational Therapy: Initial Goals Goals to be Completed in (Days 7 ) Upper Body Bathing Routine Independent Lower Body Bathing Routine Modified Independent with Upper Body Dressing Routine Independent Lower Body Dressing Routine Modified Independent with Toilet Hygeine and Clothing Modified Independent with Management Routine Toilet Transfer Routine Modified Independent with Step-In Shower Transfer Modified Independent with Routine Functional Transfers for ADL Modified Independent with Grooming Routine Independent Feeding Routine Modified Independent with Light Housekeeping Tasks Modified Independent with simple meal prep Speech: Goals Speech Goal 1 Memory Goal 1 Comments Long-Term Goal: Pt will use compensatory strategies to encode and retrieve 4/4 new items after delay of 30 minutes, Independently, for independence in mobility safety, ADLs and community access. Short-term Goal: Pt will use compensatory strategies to encode and retrieve 3/4 new items after delay of 10 minutes, given Minimal skilled instruction and cueing. Status: Pt demonstrated ability to follow Moderate skilled instruction and prompting to use memory impovement strategies to encode and recall multiple new items after delay of 5 minutes. Pt did not initiate to use strategies after repetition with fading of cues to Minimal Speech Goal 2 Problem solving Speech Goal 2 Comments Long-Term Goal: Pt will use compensatory strategies to demonstrate comprehension of paragraph length verbal and written information of moderate complexity, 100% accuracy, given minimal extra time, Independently. Short-Term Goal: Pt will use compensatory strategies to demonstrate comprehension of paragraph length verbal and written information of simple complexity, 90% accuracy, given moderate extra time, and Moderate skilled instruction and cueing. Status: Given moderate cueing, pt acknowledged mobility safety restriction, but could not verbalize steps for safe bed to toilet transfers. Speech Goal 3 Word-Finding Speech Goal 3 Comments Long-Term Goal: Pt will use conversational repair strategies to cooperatively find words in structured conversation, 100% accuracy, given extra time, Independently. Short-Term Goal: Pt will use conversational repair strategies to cooperatively find words in structured language activities, 75% accuracy, given Moderate skilled instruction and cueing. Status: Not addressed in this session Social Work: Goals Discharge Plan return home with home care svs and family support Anticipated Discharge Home Destination Discharge With home care svs and family support Care Plan: Care Plan ADL's - Improve/Maintain Start: 07/26/17 09:32 Freq: DAILY Status: Active Target: Protocol: Activity Type Activity Date Activity User E-Sign Co-Sign Detail Recorded Client Recorded Date Recorded By Document 07/26/17 13:55 [id number] 07/26/17 13:55 [id number] 07/26/17 13:55 PMRU Outcome: ADL's/ADL Transfers Orders/Interventions Occupational Therapy Evaluation & Treatment Communication Tool in Patient Room Patient to receive OT 5x/wk for 60-120 Therex min/day Self Care Management Group Therapy Neuromuscular ReEducation UE/LE ADL's with Assist Yes: Mod I ADL Transfers with Assist Yes: Mod I Toileting: Transfers,Clothing Management Yes: Mod I ,Hygeine w/Assist Progression Toward Outcome/Goals Progressing Outcome/Goals Met Pt has increased difficulty with ambulation this session. She has buckling of the L knee at start of session. Upon completion of session, pt demonstrates some left neglect when ambulating to the point of needing physical cueing for guidance of the walker. Pt does seem slightly more steady when performing dynamic standing balance tasks compared to this morning; does not sit/ plop back down into chair. Cardiovascular- Improve/Maintain Start: 07/24/17 18:29 Freq: DAILY Status: Active Target: Protocol: Activity Type Activity Date Activity User E-Sign Co-Sign Detail Recorded Client Recorded Date Recorded By Document 07/26/17 23:35 [id number] 07/26/17 23:35 [id number] 07/26/17 23:35 PMRU Outcome: Cardiovascular Vital Signs q Shift for 48hrs Then BID Yes Daily Weight Ordered No Current Cardiovascular Outcome/Goal Maintain/ Achieve Baseline HR, BP , Perfusion Improve HR Within Prescribed Parameters Maintain/ Achieve Hemodynamic Stability Free of Abnormal Cardiac Symptoms Progression Toward Outcome/Goal Progressing Discharge Planning - Improve/Maintain Start: 07/24/17 18:29 Freq: DAILY Status: Active Target: Protocol: Activity Type Activity Date Activity User E-Sign Co-Sign Detail Recorded Client Recorded Date Recorded By Document 07/26/17 23:35 [id number] 07/26/17 23:35 [id number] 07/26/17 23:35 PMRU Outcome: Discharge Planning Identify Patient Needs yes Update Patient Family No Outcome/Goals Demonstrates Understanding of Discharge Plan Progression Toward Outcome/Goals Progressing Medication Administration Start: 07/24/17 18:29 Freq: DAILY Status: Active Target: Protocol: Activity Type Activity Date Activity User E-Sign Co-Sign Detail Recorded Client Recorded Date Recorded By Document 07/26/17 23:35 [id number] 07/26/17 23:35 [id number] 07/26/17 23:35 PMRU Outcome: Medication Administration Assess Patient Knowledge/Teach Med Yes Education for all Meds Outcome/Goals Patient Independent with Medication Administration at Home Family/ Caregiver Administer Medications at Home Demonstrates Understanding Progression Towards Outcome/Goals Progressing Is Patient Going Home on Lovenox? Yes If Patient is Going Home on Lovenox, Who unsure if going Will Administer home on lovenox at this time Mobility- Improve/Maintain Start: 07/24/17 18:29 Freq: DAILY Status: Active Target: Protocol: Activity Type Activity Date Activity User E-Sign Co-Sign Detail Recorded Client Recorded Date Recorded By Document 07/26/17 12:11 [id number] 07/26/17 12:11 [id number] 07/26/17 12:11 PMRU Outcome: Mobility Progression Toward Outcome/Goals Progressing Neurological- Improve/Maintain Start: 07/24/17 18:29 Freq: DAILY Status: Active Target: Protocol: Activity Type Activity Date Activity User E-Sign Co-Sign Detail Recorded Client Recorded Date Recorded By Document 07/26/17 23:35 [id number] 07/26/17 23:35 [id number] 07/26/17 23:35 PMRU Outcome: Neurological Weakness/Aphasia Weakness Left Side Weakness/Aphasia Comment leans to left when ambulating Outcome/Goals Maintain/ Achieve Baseline Neurological Status Improve Neurological Status Prevent Avoidable Neurological Decline Maintain/ Improve Strength/ROM Progression Toward Outcome/Goals Progressing Safety- Improve/Maintain Start: 07/24/17 18:29 Freq: DAILY Status: Active Target: Protocol: Activity Type Activity Date Activity User E-Sign Co-Sign Detail Recorded Client Recorded Date Recorded By Document 07/26/17 23:35 [id number] 07/26/17 23:35 [id number] 07/26/17 23:35 PMRU Outcome: Safety Outcome/Goals Remain Free of Injury or Harm Cooperates with Safety Measures for Least Restrictive Environment Prevent Falls/ Injury Progression Toward Outcome/Goals Progressing Outcome/Goals Met Comment PA in place Skin- Improve/Maintain Start: 07/24/17 18:29 Freq: DAILY Status: Active Target: Protocol: Activity Type Activity Date Activity User E-Sign Co-Sign Detail Recorded Client Recorded Date Recorded By Document 07/26/17 23:35 [id number] 07/26/17 23:35 [id number] 07/26/17 23:35 PMRU Outcome: Skin Skin Risk Level Low Skin Orders Turn/Position q2hr While in Bed Outcome/Goals Maintain/ Improve Skin Intergrity Free from Decubitus Progression Toward Outcome/Goals Progressing Medicine Note: Length of Stay: [7 days] Anticipated Discharge Destination: Home Tentative Discharge Date: [08/03/17] Discharged to: [home]
--- NOTE | 2017-07-27 14:32 | RAD ---
INDICATION: Elevated white blood cell count COMPARISON: July 16, 2017 TECHNIQUE: PA and lateral dual-energy views were obtained. FINDINGS: Bones/Soft Tissues: There are no acute bony findings. Cardiomediastinal: The cardiomediastinal silhouette is normal. Lungs: There are no infiltrates. Pleura: There are no pleural effusions. Other: None IMPRESSION: NO ACTIVE DISEASE.
[2017-07-27 16:14] LABS: Urine Appearance Cloudy; Urine Blood 2+ (Negative); Urine Color Yellow; Urine Ketones Negative (Negative); Urine Protein Negative (Negative); Urine Urobilinogen Negative (Negative)
[2017-07-27] MEDS: Atorvastatin* 80 MG TAB PO SCH (17:37)
[2017-07-27] MEDS: Cephalexin CAP* 500 MG PO SCH (20:23)
--- NOTE | 2017-07-28 08:54 | PN ---
Progress Note - Progress Note Date of Service: 07/28/17 Note: Nursing and therapy notes reviewed. Started kelfex for possible UTI last night. Nursing noted that last time she was on antibiotic she developed some diarrhea, which patient acknowledges. No chest pain, shortness of breath or abdominal pain. Acetaminophen (Tylenol Tab*) 650 mg PO Q6H PRN PRN Reason: FEVER/PAIN Aspirin (Aspirin Low Dose Tab*) 81 mg PO DAILY [facility] Last Admin: 07/27/17 08:15 Dose: 81 mg Atorvastatin Calcium (Lipitor*) 80 mg PO 1700 [facility] Last Admin: 07/27/17 17:37 Dose: 80 mg Cephalexin HCl (Keflex Cap*) 500 mg PO BID [facility] Last Admin: 07/27/17 20:23 Dose: 500 mg Docusate Sodium (Colace Cap*) 100 mg PO BID [facility] Last Admin: 07/27/17 20:27 Dose: Not Given Enoxaparin Sodium (Lovenox(*)) 40 mg SUBCUT Q24H [facility] Last Admin: 07/27/17 08:15 Dose: 40 mg Hydrocortisone (Hytone Cream 1%*) 1 applic TOPICAL BID [facility] Last Admin: 07/27/17 20:27 Dose: 1 applic Lactobacillus Rhamnosus (Culturelle*) 1 cap PO BID [facility] Levetiracetam (Keppra Tab*) 500 mg PO BID [facility] Last Admin: 07/27/17 20:23 Dose: 500 mg Magnesium Hydroxide (Milk Of Magnesia Liq*) 30 ml PO Q6H PRN PRN Reason: CONSTIPATION Metoprolol Tartrate (Lopressor Tab*) 25 mg PO BID [facility] Last Admin: 07/27/17 20:23 Dose: 25 mg Nitroglycerin (Nitroglycerin Tab 0.4 Mg*) 0.4 mg SL Q5M PRN PRN Reason: ANGINA Senna (Senokot Tab*) 2 tab PO BEDTIME PRN PRN Reason: CONSTIPATION Vital Signs 07/27/17 07/27/17 07/28/17 15:00 15:24 06:32 Temperature 98.5 F 99.0 F Pulse Rate 74 70 Respiratory 19 18 Rate Blood Pressure 108/67 113/71 (mmHg) O2 Sat by Pulse 99 99 97 Oximetry EXAM: GEN: no acute distress. alert and appropriate. LUNGS: Clear bilaterally HEART: Regular rate and rhythm ABDOMEN: Soft, +BS, non-tender, non-distended EXTREMITIES: No edema NEUROLOGIC: CN II-XII intact. RUE/RLE motor 5/5. LUE/LLE motor 4/5. Sensation intact x4. SKIN: mild blanching papular rash on chest Laboratory Results - last 24 hr 07/27/17 07/27/17 10:28 16:00 WBC 14.9 H RBC 4.19 Hgb 12.6 Hct 38 MCV 91 MCH 30 MCHC 33 RDW 13 Plt Count 591 H D MPV 8 Neut % (Auto) 78.6 Lymph % (Auto) 13.6 L [place] % (Auto) 5.7 Eos % (Auto) 1.9 Baso % (Auto) 0.2 Absolute Neuts (auto) 11.7 H Absolute Lymphs (auto) 2.0 Absolute Monos (auto) 0.8 Absolute Eos (auto) 0.3 Absolute Basos (auto) 0 Absolute Nucleated RBC 0 Nucleated RBC % 0 Urine Color Yellow Urine Appearance Cloudy Urine pH 5.0 Ur Specific [place] 1.020 Urine Protein Negative Urine Ketones Negative Urine Blood 2+ H Urine Nitrate Positive H Urine Bilirubin Negative Urine Urobilinogen Negative Ur Leukocyte Esterase 2+ H Urine WBC (Auto) 3+(>20/hpf) H Urine RBC (Auto) 2+(6-10/hpf) H Ur Squamous Epith Cells Present H Urine Bacteria Absent Urine Glucose Negative Blood cultures x2 drawn 07/27/17 pending. Urine culture 07/27/17 pending. Chest X-ray 07/27/17 - no acute disease. 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 1. STEMI, 100% Occluded first obtuse marginal: Medical management, per cardiology. Lipitor/ASA/Lopressor 2. 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 Seizure disorder: continue Keppra. 4. Leukocytosis likely secondary to UTI. Prior UTI on acute service was Ecoli pansensitive treated with 3 days of Keflex. Restarted Keflex on 07/27/17 pending culture results. f/u urine and blood cultures. f/u cbc on Sunday. Will start culturelle to prevent diarrhea associated with antibiotic use. 5. DVT Prophylaxis: Lovenox 6. Advanced directives: Full code. 7. Estimated LOS: anticipate d/c on 08/03/17 after IPOC.
[2017-07-28] MEDS: Metoprolol Tartrate TAB* 25 MG PO SCH ×2 (09:29→20:55)
[2017-07-28] MEDS: Docusate CAP* 100 MG PO SCH ×2 (09:29→20:56)
[2017-07-28] MEDS: Cephalexin CAP* 500 MG PO SCH ×2 (09:30→20:55)
[2017-07-28] MEDS: levETIRAcetam TAB* 500 MG PO SCH ×2 (09:30→20:55)
[2017-07-28] MEDS: Aspirin Low Dose CHEW TAB* 81 MG PO SCH (09:30)
[2017-07-28] MEDS: Enoxaparin(*) 40 MG/0.4 ML SYR SUBCUT SCH (09:31)
[2017-07-28] MEDS: Hydrocortisone 1% CREAM* 30 GM TUBE TOPICAL SCH ×2 (09:32→20:55)
[2017-07-28] MEDS: Lactobacillus Acidophilu (GG)* 1 CAP CAP PO SCH ×2 (10:08→20:55)
[2017-07-28] MEDS: Atorvastatin* 80 MG TAB PO SCH (17:37)
--- NOTE | 2017-07-29 08:30 | PN ---
Progress Note - Progress Note Date of Service: 07/29/17 Note: Nursing and therapy notes reviewed. Some incontinence of urine this morning. No chest pain, shortness of breath or abdominal pain. Acetaminophen (Tylenol Tab*) 650 mg PO Q6H PRN PRN Reason: FEVER/PAIN Aspirin (Aspirin Low Dose Tab*) 81 mg PO DAILY [facility] Last Admin: 07/28/17 09:30 Dose: 81 mg Atorvastatin Calcium (Lipitor*) 80 mg PO 1700 [facility] Last Admin: 07/28/17 17:37 Dose: 80 mg Cephalexin HCl (Keflex Cap*) 500 mg PO BID [facility] Last Admin: 07/28/17 20:55 Dose: 500 mg Docusate Sodium (Colace Cap*) 100 mg PO BID [facility] Last Admin: 07/28/17 20:56 Dose: Not Given Enoxaparin Sodium (Lovenox(*)) 40 mg SUBCUT Q24H [facility] Last Admin: 07/28/17 09:31 Dose: 40 mg Hydrocortisone (Hytone Cream 1%*) 1 applic TOPICAL BID [facility] Last Admin: 07/28/17 20:55 Dose: 1 applic Lactobacillus Rhamnosus (Culturelle*) 1 cap PO BID [facility] Last Admin: 07/28/17 20:55 Dose: 1 cap Levetiracetam (Keppra Tab*) 500 mg PO BID [facility] Last Admin: 07/28/17 20:55 Dose: 500 mg Magnesium Hydroxide (Milk Of Magnesia Liq*) 30 ml PO Q6H PRN PRN Reason: CONSTIPATION Metoprolol Tartrate (Lopressor Tab*) 25 mg PO BID [facility] Last Admin: 07/28/17 20:55 Dose: 25 mg Nitroglycerin (Nitroglycerin Tab 0.4 Mg*) 0.4 mg SL Q5M PRN PRN Reason: ANGINA Senna (Senokot Tab*) 2 tab PO BEDTIME PRN PRN Reason: CONSTIPATION Vital Signs 07/28/17 07/28/17 07/29/17 16:19 19:22 04:41 Temperature 98.5 F 99.1 F Pulse Rate 68 64 Respiratory 16 16 20 Rate Blood Pressure 109/71 104/69 (mmHg) O2 Sat by Pulse 99 98 Oximetry EXAM: GEN: no acute distress. alert and appropriate. LUNGS: Clear bilaterally HEART: Regular rate and rhythm ABDOMEN: Soft, +BS, non-tender, non-distended EXTREMITIES: No edema NEUROLOGIC: CN II-XII intact. RUE/RLE motor 5/5. LUE/LLE motor 4/5. Sensation intact x4. SKIN: mild blanching papular rash on chest Microbiology 07/27/17 16:00 Urine Urine Culture - Preliminary Escherichia Coli 07/27/17 12:55 Blood Venous Aerobic Blood Culture - Preliminary No Growth Day 1 07/27/17 12:55 Blood Venous Anaerobic Blood Culture - Final Not Reportable 07/27/17 12:55 Blood Venous Aerobic Blood Culture - Preliminary No Growth Day 1 07/27/17 12:55 Blood Venous Anaerobic Blood Culture - Preliminary No Growth Day 1 Chest X-ray 07/27/17 - no acute disease. 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 1. STEMI, 100% Occluded first obtuse marginal: Medical management, per cardiology. Lipitor/ASA/Lopressor 2. 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 Seizure disorder: continue Keppra. 4. Leukocytosis likely secondary to Ecoli UTI with sensitivities pending. Prior UTI on acute service was Ecoli pansensitive treated with 3 days of Keflex. Restarted Keflex on 07/27/17 pending culture results. f/u urine and blood cultures. f/u cbc on Sunday. Culturelle to prevent diarrhea associated with antibiotic use. 5. DVT Prophylaxis: Lovenox 6. Advanced directives: Full code. 7. Estimated LOS: anticipate d/c on 08/03/17.
[2017-07-29] MEDS: levETIRAcetam TAB* 500 MG PO SCH ×2 (08:41→20:16)
[2017-07-29] MEDS: Metoprolol Tartrate TAB* 25 MG PO SCH ×2 (08:41→20:16)
[2017-07-29] MEDS: Docusate CAP* 100 MG PO SCH ×2 (08:41→20:16)
[2017-07-29] MEDS: Aspirin Low Dose CHEW TAB* 81 MG PO SCH (08:41)
[2017-07-29] MEDS: Cephalexin CAP* 500 MG PO SCH ×2 (08:41→20:16)
[2017-07-29] MEDS: Lactobacillus Acidophilu (GG)* 1 CAP CAP PO SCH ×2 (08:41→20:16)
[2017-07-29] MEDS: Enoxaparin(*) 40 MG/0.4 ML SYR SUBCUT SCH (08:42)
[2017-07-29] MEDS: Hydrocortisone 1% CREAM* 30 GM TUBE TOPICAL SCH ×2 (08:44→20:16)
[2017-07-29 10:57] LABS: ABS Basophils 0.1 10^3/ul (0-0.2); ABS Eosinophils 0.4 10^3/ul (0-0.6); ABS Lymphocytes 1.9 10^3/ul (1.0-4.8); ABS Monocytes 0.8 10^3/ul (0-0.8); ABS Neutrophils 7.7 10^3/ul (1.5-7.7); ABS Nucleated RBC 0 10^3/ul; Eosinophil % 3.3 % (0-6); Hematocrit 39 % (35-47); Hemoglobin 12.8 g/dl (12.0-16.0); Lymphocyte % 17.7 % (25-47); Mean Corpuscular HGB Conc 33 g/dl (31-36); Mean Corpuscular Hemoglobin 30 pg (27-31); Mean Corpuscular Volume 90 fL (80-97); Mean Platelet Volume 7 um3 (7.4-10.4); Nucleated Red Blood Cells % 0; Platelet Count 570 10^3/ul (150-450); Red Blood Count 4.27 10^6/ul (4.0-5.4); Red Cell Distribution Width 13 % (10.5-15); White Blood Count 10.7 10^3/ul (3.5-10.8)
[2017-07-29] MEDS: Atorvastatin* 80 MG TAB PO SCH (17:51)
[2017-07-30] MEDS: Cephalexin CAP* 500 MG PO SCH ×2 (08:12→20:06)
[2017-07-30] MEDS: Metoprolol Tartrate TAB* 25 MG PO SCH ×2 (08:12→20:06)
[2017-07-30] MEDS: Aspirin Low Dose CHEW TAB* 81 MG PO SCH (08:12)
[2017-07-30] MEDS: levETIRAcetam TAB* 500 MG PO SCH ×2 (08:12→20:06)
[2017-07-30] MEDS: Enoxaparin(*) 40 MG/0.4 ML SYR SUBCUT SCH (08:12)
[2017-07-30] MEDS: Lactobacillus Acidophilu (GG)* 1 CAP CAP PO SCH ×2 (08:12→20:06)
[2017-07-30] MEDS: Hydrocortisone 1% CREAM* 30 GM TUBE TOPICAL SCH ×2 (08:12→20:06)
[2017-07-30] MEDS: Docusate CAP* 100 MG PO SCH ×2 (08:13→20:06)
[2017-07-30] MEDS: Atorvastatin* 80 MG TAB PO SCH (16:38)
--- NOTE | 2017-07-30 17:35 | PN ---
Progress Note - Progress Note Date of Service: 07/30/17 Note: Angela was visited. Therapy notes read and reviewed. Her left leg is getting stronger and she is moving better. Her memory is not great. She is on Keflex. Urine cultures showed >100k E. Coli Current Medications Acetaminophen (Tylenol Tab*) 650 mg PO Q6H PRN PRN Reason: FEVER/PAIN Aspirin (Aspirin Low Dose Tab*) 81 mg PO DAILY [facility] Last Admin: 07/30/17 08:12 Dose: 81 mg Atorvastatin Calcium (Lipitor*) 80 mg PO 1700 [facility] Last Admin: 07/30/17 16:38 Dose: 80 mg Cephalexin HCl (Keflex Cap*) 500 mg PO BID [facility] Last Admin: 07/30/17 08:12 Dose: 500 mg Docusate Sodium (Colace Cap*) 100 mg PO BID [facility] Last Admin: 07/30/17 08:13 Dose: Not Given Enoxaparin Sodium (Lovenox(*)) 40 mg SUBCUT Q24H [facility] Last Admin: 07/30/17 08:12 Dose: 40 mg Hydrocortisone (Hytone Cream 1%*) 1 applic TOPICAL BID [facility] Last Admin: 07/30/17 08:12 Dose: 1 applic Lactobacillus Rhamnosus (Culturelle*) 1 cap PO BID [facility] Last Admin: 07/30/17 08:12 Dose: 1 cap Levetiracetam (Keppra Tab*) 500 mg PO BID [facility] Last Admin: 07/30/17 08:12 Dose: 500 mg Magnesium Hydroxide (Milk Of Magnesia Liq*) 30 ml PO Q6H PRN PRN Reason: CONSTIPATION Metoprolol Tartrate (Lopressor Tab*) 25 mg PO BID [facility] Last Admin: 07/30/17 08:12 Dose: 25 mg Nitroglycerin (Nitroglycerin Tab 0.4 Mg*) 0.4 mg SL Q5M PRN PRN Reason: ANGINA Senna (Senokot Tab*) 2 tab PO BEDTIME PRN PRN Reason: CONSTIPATION Microbiology 07/27/17 12:55 Blood Venous Aerobic Blood Culture - Preliminary No Growth Day 3 07/27/17 12:55 Blood Venous Anaerobic Blood Culture - Final Not Reportable 07/27/17 12:55 Blood Venous Aerobic Blood Culture - Preliminary No Growth Day 3 07/27/17 12:55 Blood Venous Anaerobic Blood Culture - Preliminary No Growth Day 3 07/27/17 16:00 Urine Urine Culture - Final Escherichia Coli Vital Signs Temp Pulse Resp BP Pulse Ox 98.6 F 68 16 99/65 97 07/30/17 16:16 07/30/17 16:16 07/30/17 16:16 07/30/17 16:16 07/30/17 16:16 EXAM: LUNGS: Clear bilaterally HEART: Reg rhythm ABDOMEN: Soft, +BS EXTREMITIES: No edema NEUROLOGIC: Left LE: 4+/5, left UE: 4+/5 ASSESSMENT/PLAN: 1. STEMI, 100% Occluded first obtuse marginal: Medical management, per cardiology. Lipitor/ASA/Lopressor 2. 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 Seizure disorder: Keppra. 4. Urinary tract infection: Keflex 5. DVT Prophylaxis: Lovenox 6. Advanced directives: Full code
[2017-07-31] MEDS: Cephalexin CAP* 500 MG PO SCH ×2 (09:57→21:00)
[2017-07-31] MEDS: Docusate CAP* 100 MG PO SCH ×2 (09:58→21:01)
[2017-07-31] MEDS: Metoprolol Tartrate TAB* 25 MG PO SCH ×2 (09:58→21:00)
[2017-07-31] MEDS: levETIRAcetam TAB* 500 MG PO SCH ×2 (09:58→20:59)
[2017-07-31] MEDS: Aspirin Low Dose CHEW TAB* 81 MG PO SCH (09:58)
[2017-07-31] MEDS: Lactobacillus Acidophilu (GG)* 1 CAP CAP PO SCH ×2 (09:58→21:00)
[2017-07-31] MEDS: Hydrocortisone 1% CREAM* 30 GM TUBE TOPICAL SCH ×2 (09:59→21:04)
[2017-07-31] MEDS: Enoxaparin(*) 40 MG/0.4 ML SYR SUBCUT SCH (09:59)
--- NOTE | 2017-07-31 12:25 | PMRUTEAM ---
PMRU: Goals Current Status: Nursing: Current Status Skin Deviations [Buttocks] Other Skin Deviations [Chest] Rash Skin Deviation Description [ healed Buttocks] Skin Deviation Description [ much improved with hydrocortizone cream Chest] Bladder Current Status voiding Bowel Current Status bm on 07/30/17 Nutrition Current Status appetite good Medication Current Status needs reinforcement Physical Therapy: Current Status Bed Mobility Assistance Supervision Transfer Moblility Assistance Supervision Transfer/Bed Mobility None,Rolling Walker Recommended Devices Transfer Mobility Comment Pt. is able to perform a SPT with or without an assistive device S x 1. Ambulation Assistance Supervision,Contact Guard Assist Ambulation Assistive Devices None,Rolling Walker Number of Feet Patient 150' x 2 Ambulated Ambulation Comment S x 1 using a 2 or 4 w/w and cg x 1 without A device. Stairs Assistance Supervision Stairs Recommended Devices One Rail Number of Stairs 10 Occupational Therapy: Current Status Upper Body Dressing Independent Lower Body Dressing Supervision Bathing Supervision Toileting Ind with Adaptive Equip,Contact Guard Assist Toilet Transfer Ind with Adaptive Equip,Contact Guard Assist Shower Transfer Supervision Eating Independent Instrumental ADL Pt independently gathers items necessary to prep scrambled eggs and then makes them on the electric stove without difficulty or safety issues. Rec Therapy: Current Status Summary of Assessment and RT assessment complete and pt. is aware of RT Clinical Impression services. Pt. has been engaged in leisure visits while on the unit and expressed excitement towards d/c on 08/03/17. Treatment Goals Pt. will engage in leisure activities while on the unit. Treatment Plan Provide RT services and encourage involvement. Social Work: Current Status Discharge Plan return home with home care svs and family support Potential for Family Training pt's family is involved and supportive Anticipated Discharge Home Destination Discharge With home care svs and family support Nutrition: Current Status Monitoring appetite improving; now consuming 50-100% of regular diet. No swallowing deficits; MENTAL RETARDATION NURSE following for cognitive needs. She likes most foods and can chew well w/her dentures. No c/o constipation; BMs 07/28 and 07/29. Fluids being encouraged; she enjoys gingerale. Denies wt fluctuations; presently at healthy BMI (22). Statin/grapefruit education provided on [facility]SS[facility] 07/24. Nutrition goals as outlined below. Speech: Current Status Assessment Pt improved in ability to complete sequencing tasks by using compensatory strategies. Goals: Physical Therapy: Initial Goals Bed Mobility Assistance Independent Transfer Mobility Assistance Independent Transfer/Bed Mobility Rolling Walker Recommended Devices Ambulation Independent Ambulation Recommended Devices Rolling Walker Ambulation Distance 150 Stairs Assistance Independent Stair Recommended Devices One Rail Number of Stairs 10 Physical Therapy: Updated Goals Bed Mobility Assistance Independent Transfer Mobility Assistance Independent Transfer/Bed Mobility Rolling Walker Recommended Devices Ambulation Assistance Independent Ambulation Assistive Devices Rolling Walker Ambulation Distance (ft) 150 Stairs Assistance Independent Stairs Recommended Devices One Rail Number of Stairs 10 Occupational Therapy: Initial Goals Goals to be Completed in (Days 7 ) Upper Body Bathing Routine Independent Lower Body Bathing Routine Modified Independent with Upper Body Dressing Routine Independent Lower Body Dressing Routine Modified Independent with Toilet Hygeine and Clothing Modified Independent with Management Routine Toilet Transfer Routine Modified Independent with Step-In Shower Transfer Modified Independent with Routine Functional Transfers for ADL Modified Independent with Grooming Routine Independent Feeding Routine Modified Independent with Light Housekeeping Tasks Minimal Contact Assist Nursing: Goals Bladder Goal independent Bowel Goal independent Nutrition Goal 100% of all meals Medication Goal independent Nutrition: Goals Intervention Goals 1. adequate po intake to maintain present wt, hydration, and lean body mass 2. pt will understand effect of grapefruit and statin therapy and refrain from grapefruit intake Speech: Goals Speech Goal 1 Memory Goal 1 Comments Long-Term Goal: Pt will use compensatory strategies to encode and retrieve 4/4 new items after delay of 30 minutes, Independently, for independence in mobility safety, ADLs and community access. Short-term Goal: Pt will use compensatory strategies to encode and retrieve 3/4 new items after delay of 10 minutes, given Minimal skilled instruction and cueing. Status: Pt Status: Given moderate prompting, pt read appointments and used the compensatory strategy of repeating aloud immediately while turning the page, to recall details before writing and avoid needing to look back repeatedly. Speech Goal 2 Problem solving Speech Goal 2 Comments Long-Term Goal: Pt will use compensatory strategies to solve moderately complex routine problems, with 100% accuracy, Independently, for ADLs such as shopping, time and money management. Short-Term Goal: Pt will use compensatory strategies to solve moderately complex routine problems, with 80% accuracy, given Moderate skilled instruction and cueing. Status: Pt sequenced practical steps accurately given moderate cueing to use compensatory strategies of deciding the end step first, and was most successful retelling the sequence as a story before writing. Pt sequenced 17/20 scrambled 4-word sentences given minimal cueing to work in order, and moderate cueing to unscramble . Pt wrote events from list onto daily schedule on reverse by using immediate repetition strategy, givne minimal cueing. Speech Goal 3 Word-Finding Speech Goal 3 Comments Long-Term Goal: Pt will use conversational repair strategies to cooperatively find words in structured conversation, 100% accuracy, given extra time, Independently. Short-Term Goal: Pt will use conversational repair strategies to cooperatively find words in structured language activities, 75% accuracy, given Moderate skilled instruction and cueing. Status: No word-finding difficulties occurred during structured conversation this session. Social Work: Goals Discharge Plan return home with home care svs and family support Potential for Family Training pt's family is involved and supportive Anticipated Discharge Home Destination Discharge With home care svs and family support Care Plan: Care Plan ADL's - Improve/Maintain Start: 07/26/17 09:32 Freq: DAILY Status: Active Target: Protocol: Activity Type Activity Date Activity User E-Sign Co-Sign Detail Recorded Client Recorded Date Recorded By Document 07/31/17 10:20 [id number] 07/31/17 10:20 [id number] 07/31/17 10:20 PMRU Outcome: ADL's/ADL Transfers Orders/Interventions Occupational Therapy Evaluation & Treatment Communication Tool in Patient Room Patient to receive OT 5x/wk for 60-120 Therex min/day Self Care Management Group Therapy Neuromuscular ReEducation UE/LE ADL's with Assist Yes: Mod I ADL Transfers with Assist Yes: Mod I Toileting: Transfers,Clothing Management Yes: Mod I ,Hygeine w/Assist Progression Toward Outcome/Goals Progressing Outcome/Goals Met Pt is nearing achievement of OT goals. Does not rely on insurance underwriter sales for cues for procedure, sequencing or safety. Dynamic standing balance improves daily. No evidence of knee buckling. Pt "almost feels like her old self". Cardiovascular- Improve/Maintain Start: 07/24/17 18:29 Freq: DAILY Status: Active Target: Protocol: Activity Type Activity Date Activity User E-Sign Co-Sign Detail Recorded Client Recorded Date Recorded By Document 07/31/17 11:32 [id number] 07/31/17 11:33 [id number] 07/31/17 11:32 PMRU Outcome: Cardiovascular Vital Signs q Shift for 48hrs Then BID Yes Daily Weight Ordered No Current Cardiovascular Outcome/Goal Maintain/ Achieve Baseline HR, BP , Perfusion Improve HR Within Prescribed Parameters Maintain/ Achieve Hemodynamic Stability Free of Abnormal Cardiac Symptoms Progression Toward Outcome/Goal Progressing Discharge Planning - Improve/Maintain Start: 07/24/17 18:29 Freq: DAILY Status: Active Target: Protocol: Activity Type Activity Date Activity User E-Sign Co-Sign Detail Recorded Client Recorded Date Recorded By Document 07/31/17 01:46 [id number] 07/31/17 01:48 [id number] 07/31/17 01:46 PMRU Outcome: Discharge Planning Identify Patient Needs yes Update Patient Family No Outcome/Goals Demonstrates Understanding of Discharge Plan Progression Toward Outcome/Goals Progressing Outcome/Goals Met Comment stroke education tomorrow Medication Administration Start: 07/24/17 18:29 Freq: DAILY Status: Active Target: Protocol: Activity Type Activity Date Activity User E-Sign Co-Sign Detail Recorded Client Recorded Date Recorded By Document 07/31/17 11:32 [id number] 07/31/17 11:33 [id number] 07/31/17 11:32 PMRU Outcome: Medication Administration Assess Patient Knowledge/Teach Med Yes Education for all Meds Outcome/Goals Patient Independent with Medication Administration at Home Family/ Caregiver Administer Medications at Home Demonstrates Understanding Progression Towards Outcome/Goals Progressing Is Patient Going Home on Lovenox? No Mobility- Improve/Maintain Start: 07/24/17 18:29 Freq: DAILY Status: Active Target: Protocol: Activity Type Activity Date Activity User E-Sign Co-Sign Detail Recorded Client Recorded Date Recorded By Document 07/30/17 12:27 [id number] 07/30/17 12:27 [id number] 07/30/17 12:27 PMRU Outcome: Mobility Physical Therapy Evaluation and Yes Treatment Activity OOB with Assistance Yes Device Yes Assistance Yes Patient to be seen 5x/wk for 60-120 min/ Therex day for: Mobility Training Gait Training Balance Progression Toward Outcome/Goals Progressing Bed Mobility Yes: independent Transfers Yes: independent with rolling walker Gait x ft Yes: independent with rolling walker 150' Up/Down Stairs Yes: independent up/ down ten stairs with 1 rail Neurological- Improve/Maintain Start: 07/24/17 18:29 Freq: DAILY Status: Active Target: Protocol: Activity Type Activity Date Activity User E-Sign Co-Sign Detail Recorded Client Recorded Date Recorded By Document 07/31/17 11:32 [id number] 07/31/17 11:33 [id number] 07/31/17 11:32 PMRU Outcome: Neurological Weakness/Aphasia Weakness Left Side Outcome/Goals Maintain/ Achieve Baseline Neurological Status Improve Neurological Status Prevent Avoidable Neurological Decline Maintain/ Improve Strength/ROM Progression Toward Outcome/Goals Progressing Safety- Improve/Maintain Start: 07/24/17 18:29 Freq: DAILY Status: Active Target: Protocol: Activity Type Activity Date Activity User E-Sign Co-Sign Detail Recorded Client Recorded Date Recorded By Document 07/31/17 11:32 [id number] 07/31/17 11:33 [id number] 07/31/17 11:32 PMRU Outcome: Safety Outcome/Goals Remain Free of Injury or Harm Cooperates with Safety Measures for Least Restrictive Environment Prevent Falls/ Injury Progression Toward Outcome/Goals Progressing Outcome/Goals Met Comment PA in place Skin- Improve/Maintain Start: 07/24/17 18:29 Freq: DAILY Status: Active Target: Protocol: Activity Type Activity Date Activity User E-Sign Co-Sign Detail Recorded Client Recorded Date Recorded By Document 07/31/17 11:32 [id number] 07/31/17 11:33 [id number] 07/31/17 11:32 PMRU Outcome: Skin Skin Risk Level Medium Skin Orders Turn/Position q2hr While in Bed Outcome/Goals Maintain/ Improve Skin Intergrity Free from Decubitus Outcome/Goals Comment rash to chest much improved. Progression Toward Outcome/Goals Progressing Medicine Note: Length of Stay: 3 days Anticipated Discharge Destination: Home Tentative Discharge Date: 08/03/17 Discharged to: Home
[2017-07-31] MEDS: Atorvastatin* 80 MG TAB PO SCH (17:14)
--- NOTE | 2017-07-31 17:22 | PN ---
Progress Note Date of Service: 07/31/17 Note: LIGIA JADE was visited. Therapy notes read and reviewed. Patient was discussed in interdisciplinary team rounds. Progressing nicely. Worried about going back to work. Current Medications: Active Medications Generic Name Dose Route Start Last Admin Trade Name Freq PRN Reason Stop Dose Admin Acetaminophen 650 mg 07/24/17 16:33 Tylenol Tab* PO Q6H PRN FEVER/PAIN Aspirin 81 mg 07/25/17 09:00 07/31/17 09:58 Aspirin Low Dose Tab* PO 81 mg DAILY [facility]ISA Administration Atorvastatin Calcium 80 mg 07/24/17 17:00 07/31/17 17:14 Lipitor* PO 80 mg 1700 [facility]ISA Administration Cephalexin HCl 500 mg 07/27/17 21:00 07/31/17 09:57 Keflex Cap* PO 500 mg BID [facility] Administration Docusate Sodium 100 mg 07/24/17 21:00 07/31/17 09:58 Colace Cap* PO 100 mg BID [facility] Administration Enoxaparin Sodium 40 mg 07/25/17 09:00 07/31/17 09:59 Lovenox(*) SUBCUT 40 mg Q24H [facility] Administration Hydrocortisone 1 applic 07/26/17 09:00 07/31/17 09:59 Hytone Cream 1%* TOPICAL 1 applic BID [facility] Administration Lactobacillus Rhamnosus 1 cap 07/28/17 09:00 07/31/17 09:58 Culturelle* PO 1 cap BID [facility] Administration Levetiracetam 500 mg 07/24/17 21:00 07/31/17 09:58 Keppra Tab* PO 500 mg BID [facility] Administration Magnesium Hydroxide 30 ml 07/24/17 16:33 Milk Of Magnesia Liq* PO Q6H PRN CONSTIPATION Metoprolol Tartrate 25 mg 07/24/17 21:00 07/31/17 09:58 Lopressor Tab* PO 25 mg BID [facility] Administration Nitroglycerin 0.4 mg 07/24/17 16:43 Nitroglycerin Tab 0.4 Mg* SL Q5M PRN ANGINA Senna 2 tab 07/24/17 16:33 Senokot Tab* PO BEDTIME PRN CONSTIPATION Vital Signs: Vital Signs Temp Pulse Resp BP Pulse Ox 99.5 F 64 12 111/65 100 07/31/17 16:00 07/31/17 16:00 07/31/17 16:00 07/31/17 16:00 07/31/17 16:00 Exam: LUNGS: Clear bilaterally HEART: Reg rhythm ABDOMEN: Soft, +BS EXTREMITIES: No edema NEUROLOGIC: Left LE: 4+/5, left UE: 4+/5 Assessment/Plan: 07/31/17 17:20 1. STEMI, 100% Occluded first obtuse marginal: Medical management, per cardiology. Lipitor/ASA/Lopressor 2. 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 Seizure disorder: Keppra. 4. Urinary tract infection: Keflex 5. DVT Prophylaxis: Lovenox 6. Advanced directives: Full code
[2017-08-01 07:33] LABS: ABS Basophils 0 10^3/ul (0-0.2); ABS Eosinophils 0.4 10^3/ul (0-0.6); ABS Lymphocytes 2.6 10^3/ul (1.0-4.8); ABS Monocytes 0.9 10^3/ul (0-0.8); ABS Neutrophils 8.5 10^3/ul (1.5-7.7); ABS Nucleated RBC 0 10^3/ul; Eosinophil % 3.1 % (0-6); Hematocrit 38 % (35-47); Hemoglobin 12.7 g/dl (12.0-16.0); Lymphocyte % 20.8 % (25-47); Mean Corpuscular HGB Conc 34 g/dl (31-36); Mean Corpuscular Hemoglobin 30 pg (27-31); Mean Corpuscular Volume 90 fL (80-97); Mean Platelet Volume 8 um3 (7.4-10.4); Nucleated Red Blood Cells % 0; Platelet Count 568 10^3/ul (150-450); Red Blood Count 4.23 10^6/ul (4.0-5.4); Red Cell Distribution Width 13 % (10.5-15); White Blood Count 12.4 10^3/ul (3.5-10.8)
[2017-08-01 07:48] LABS: EGFR Non-African American 76.6 (>60)
[2017-08-01] MEDS: levETIRAcetam TAB* 500 MG PO SCH ×2 (08:17→20:20)
[2017-08-01] MEDS: Metoprolol Tartrate TAB* 25 MG PO SCH ×2 (08:17→20:20)
[2017-08-01] MEDS: Cephalexin CAP* 500 MG PO SCH ×2 (08:17→20:20)
[2017-08-01] MEDS: Docusate CAP* 100 MG PO SCH ×2 (08:17→20:21)
[2017-08-01] MEDS: Lactobacillus Acidophilu (GG)* 1 CAP CAP PO SCH ×2 (08:17→20:20)
[2017-08-01] MEDS: Enoxaparin(*) 40 MG/0.4 ML SYR SUBCUT SCH (08:17)
[2017-08-01] MEDS: Aspirin Low Dose CHEW TAB* 81 MG PO SCH (08:17)
[2017-08-01] MEDS: Hydrocortisone 1% CREAM* 30 GM TUBE TOPICAL SCH ×2 (08:20→20:10)
[2017-08-01] MEDS: Atorvastatin* 80 MG TAB PO SCH (17:19)
--- NOTE | 2017-08-01 17:52 | PN ---
Progress Note Date of Service: 08/01/17 Note: LIGIA JADE was visited. Therapy notes read and reviewed. She feels like she is walking pretty well. She is ready for d/c at end of week. Otherwise, no complaints. Current Medications: Active Medications Generic Name Dose Route Start Last Admin Trade Name Freq PRN Reason Stop Dose Admin Acetaminophen 650 mg 07/24/17 16:33 Tylenol Tab* PO Q6H PRN FEVER/PAIN Aspirin 81 mg 07/25/17 09:00 08/01/17 08:17 Aspirin Low Dose Tab* PO 81 mg DAILY [facility] Administration Atorvastatin Calcium 80 mg 07/24/17 17:00 08/01/17 17:19 Lipitor* PO 80 mg 1700 [facility]ISA Administration Cephalexin HCl 500 mg 07/27/17 21:00 08/01/17 08:17 Keflex Cap* PO 500 mg BID [facility] Administration Docusate Sodium 100 mg 07/24/17 21:00 08/01/17 08:17 Colace Cap* PO 100 mg BID [facility] Administration Enoxaparin Sodium 40 mg 07/25/17 09:00 08/01/17 08:17 Lovenox(*) SUBCUT 40 mg Q24H [facility] Administration Hydrocortisone 1 applic 07/26/17 09:00 08/01/17 08:20 Hytone Cream 1%* TOPICAL Not Given BID [facility] TO [facility] Lactobacillus Rhamnosus 1 cap 07/28/17 09:00 08/01/17 08:17 Culturelle* PO 1 cap BID [facility] Administration Levetiracetam 500 mg 07/24/17 21:00 08/01/17 08:17 Keppra Tab* PO 500 mg BID [facility] Administration Magnesium Hydroxide 30 ml 07/24/17 16:33 Milk Of Magnesia Liq* PO Q6H PRN CONSTIPATION Metoprolol Tartrate 25 mg 07/24/17 21:00 08/01/17 08:17 Lopressor Tab* PO 25 mg BID [facility] Administration Nitroglycerin 0.4 mg 07/24/17 16:43 Nitroglycerin Tab 0.4 Mg* SL Q5M PRN ANGINA Senna 2 tab 07/24/17 16:33 Senokot Tab* PO BEDTIME PRN CONSTIPATION Vital Signs: Vital Signs Temp Pulse Resp BP Pulse Ox 98.2 F 79 18 126/70 99 08/01/17 15:51 08/01/17 15:51 08/01/17 15:51 08/01/17 15:51 08/01/17 15:51 Lab Results: Laboratory Results - last 24 hr 08/01/17 08/01/17 06:54 06:54 WBC 12.4 H RBC 4.23 Hgb 12.7 Hct 38 MCV 90 MCH 30 MCHC 34 RDW 13 Plt Count 568 H MPV 8 Neut % (Auto) 68.5 Lymph % (Auto) 20.8 L [place] % (Auto) 7.3 Eos % (Auto) 3.1 Baso % (Auto) 0.3 Absolute Neuts (auto) 8.5 H Absolute Lymphs (auto) 2.6 Absolute Monos (auto) 0.9 H Absolute Eos (auto) 0.4 Absolute Basos (auto) 0 Absolute Nucleated RBC 0 Nucleated RBC % 0 Sodium 140 Potassium 4.3 Chloride 105 Carbon Dioxide 28 Anion Gap 7 BUN 20 Creatinine 0.76 Est GFR ( Amer) 98.5 Est GFR (Non-Af Amer) 76.6 BUN/Creatinine Ratio 26.3 H Glucose 92 Calcium 9.6 Total Bilirubin 0.30 AST 20 ALT 21 Alkaline Phosphatase 86 Total Protein 6.8 Albumin 3.6 Globulin 3.2 Albumin/Globulin Ratio 1.1 Exam: LUNGS: Clear bilaterally HEART: Reg rhythm ABDOMEN: Soft, +BS EXTREMITIES: No edema NEUROLOGIC: Left LE: 4+/5, left UE: 4+/5 Assessment/Plan: 08/01/17 17:52 1. STEMI, 100% Occluded first obtuse marginal: Medical management, per cardiology. Lipitor/ASA/Lopressor 2. 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 Seizure disorder: Keppra. 4. Urinary tract infection: Keflex day #6 5. DVT Prophylaxis: Lovenox 6. Advanced directives: Full code 08/01/17 17:53
[2017-08-02] MEDS: Cephalexin CAP* 500 MG PO SCH ×2 (08:40→20:15)
[2017-08-02] MEDS: levETIRAcetam TAB* 500 MG PO SCH ×2 (08:40→20:15)
[2017-08-02] MEDS: Docusate CAP* 100 MG PO SCH ×2 (08:40→20:15)
[2017-08-02] MEDS: Aspirin Low Dose CHEW TAB* 81 MG PO SCH (08:40)
[2017-08-02] MEDS: Metoprolol Tartrate TAB* 25 MG PO SCH ×2 (08:40→20:15)
[2017-08-02] MEDS: Lactobacillus Acidophilu (GG)* 1 CAP CAP PO SCH ×2 (08:40→20:15)
[2017-08-02] MEDS: Hydrocortisone 1% CREAM* 30 GM TUBE TOPICAL SCH ×2 (08:41→20:15)
[2017-08-02] MEDS: Enoxaparin(*) 40 MG/0.4 ML SYR SUBCUT SCH (08:41)
--- NOTE | 2017-08-02 16:25 | PN ---
Progress Note Date of Service: 08/02/17 Note: LIGIA JADE was visited. Therapy notes read and reviewed. She is set for discharge tomorrow, overall feels ready. Current Medications: Active Medications Generic Name Dose Route Start Last Admin Trade Name Freq PRN Reason Stop Dose Admin Acetaminophen 650 mg 07/24/17 16:33 Tylenol Tab* PO Q6H PRN FEVER/PAIN Aspirin 81 mg 07/25/17 09:00 08/02/17 08:40 Aspirin Low Dose Tab* PO 81 mg DAILY DENISA Administration Atorvastatin Calcium 80 mg 07/24/17 17:00 08/01/17 17:19 Lipitor* PO 80 mg 1700 DENISA Administration Cephalexin HCl 500 mg 07/27/17 21:00 08/02/17 08:40 Keflex Cap* PO 500 mg BID DENISA Administration Docusate Sodium 100 mg 07/24/17 21:00 08/02/17 08:40 Colace Cap* PO 100 mg BID DENISA Administration Enoxaparin Sodium 40 mg 07/25/17 09:00 08/02/17 08:41 Lovenox(*) SUBCUT 40 mg Q24H DENISA Administration Hydrocortisone 1 applic 07/26/17 09:00 08/02/17 08:41 Hytone Cream 1%* TOPICAL Not Given BID DENISA Lactobacillus Rhamnosus 1 cap 07/28/17 09:00 08/02/17 08:40 Culturelle* PO 1 cap BID DENISA Administration Levetiracetam 500 mg 07/24/17 21:00 08/02/17 08:40 Keppra Tab* PO 500 mg BID DENISA Administration Magnesium Hydroxide 30 ml 07/24/17 16:33 Milk Of Magnesia Liq* PO Q6H PRN CONSTIPATION Metoprolol Tartrate 25 mg 07/24/17 21:00 08/02/17 08:40 Lopressor Tab* PO 25 mg BID DENISA Administration Nitroglycerin 0.4 mg 07/24/17 16:43 Nitroglycerin Tab 0.4 Mg* SL Q5M PRN ANGINA Senna 2 tab 07/24/17 16:33 Senokot Tab* PO BEDTIME PRN CONSTIPATION Vital Signs: Vital Signs Temp Pulse Resp BP Pulse Ox 98.7 F 68 16 112/73 98 08/02/17 06:19 08/02/17 06:19 08/02/17 06:19 08/02/17 06:19 08/02/17 10:00 Exam: LUNGS: Clear bilaterally HEART: Reg rhythm ABDOMEN: Soft, +BS EXTREMITIES: No edema NEUROLOGIC: Left LE: 4+/5, left UE: 4+/5 Assessment/Plan: 08/02/17 16:25 1. STEMI, 100% Occluded first obtuse marginal: Medical management, per cardiology. Lipitor/ASA/Lopressor 2. Multiple embolic CVAs: PT/OT/COSMETICIAN. 3. Seizure disorder: Keppra. 4. Urinary tract infection: Keflex day #7 5. DVT Prophylaxis: Lovenox 6. Advanced directives: Full code 7. Leukocytosis: this is chronic
[2017-08-02] MEDS: Atorvastatin* 80 MG TAB PO SCH (16:56)
[2017-08-03 06:30] VITALS: BP 110/64
[2017-08-03] MEDS: Metoprolol Tartrate TAB* 25 MG PO SCH (08:32)
[2017-08-03] MEDS: Lactobacillus Acidophilu (GG)* 1 CAP CAP PO SCH (08:32)
[2017-08-03] MEDS: Cephalexin CAP* 500 MG PO SCH (08:32)
[2017-08-03] MEDS: Docusate CAP* 100 MG PO SCH (08:32)
[2017-08-03] MEDS: levETIRAcetam TAB* 500 MG PO SCH (08:32)
[2017-08-03] MEDS: Hydrocortisone 1% CREAM* 30 GM TUBE TOPICAL SCH (08:32)
[2017-08-03] MEDS: Aspirin Low Dose CHEW TAB* 81 MG PO SCH (08:32)
[2017-08-03] MEDS: Enoxaparin(*) 40 MG/0.4 ML SYR SUBCUT SCH (08:33)
--- NOTE | 2017-08-05 13:15 | DS ---
CC: Dr. Newton * DISCHARGE SUMMARY: DATE OF ADMISSION: 07/24/17 DATE OF DISCHARGE: 08/03/17 DISCHARGE DIAGNOSES: 1. ST-elevation myocardial infarction. 2. Multiple embolic strokes. 3. Coronary artery disease with 100% occluded obtuse marginal. 4. Seizure disorder. 5. Hypertension. 6. Urinary tract infection with Escherichia coli. HISTORY OF ILLNESS AND HOSPITAL COURSE: For complete history of the events leading up to her rehab stay, please see the history and physical dictated by il 07/24/17. While on the rehab unit, a repeat urine culture was done, again grew out E. coli sensitive to Keflex. She was treated with 7 days of Keflex. The patient was noted to have a persistently high white blood cell count even after treatment of her urinary tract infection. The patient had no seizures while on the rehab unit, the patient was maintained on Lovenox for DVT prophylaxis. The patient was seen by Physical Therapy and Occupational Therapy and made good gains with both disciplines. With physical therapy at the time of admission, the patient required contact guard to transfer, contact guard to ambulate. With occupational therapy at the time of admission, the patient required min-assist for lower body dressing, moderate amount of assistance for toileting, contact guard for toilet transfers. By the time of discharge, the patient was independent in ambulating, she was able to ambulate a 150 feet with a front-wheeled walker. She was independent in toileting, independent in toilet transfers, independent in her dressing and bathing. The patient was also seen by Speech Therapy while on the rehab unit. The patient by the time of discharge demonstrated functional language, comprehension expression and social interaction. She did have some difficulty with memory and recalling new information. The patient was discharged home on 08/03/2017. DISCHARGE DIET: Cardiac, decaf okay. DISCHARGE MEDICATIONS: 1. Aspirin 81 mg daily. 2. Lipitor 80 mg daily. 3. Keppra 500 mg twice daily. 4. Lopressor 25 mg twice daily. 5. Nitroglycerin sublingual if needed. SERVICES AFTER DISCHARGE: Through visiting nurse service. The patient will have home nursing and home physical therapy. She will also follow up with her primary care doctor, Dr. Newton, as well as with her comber fixer, Dr. Greenwood. [id number]/[facility] #: [id number] [facility]
== END 2017-08-03 10:30 | disposition home health service (06) | DRG 58 ==
LOC: PMRU 13:35
PROVIDERS: ADMIT Physical Medicine & Rehabilitation; ATTEND Physical Medicine & Rehabilitation
PROC: F07Z5ZZ Bed Mobility Treatment (ICD-10-PCS; principal; 2017-07-24)
PROC: F07Z9ZZ Gait Training/Functional Ambulation Treatment (ICD-10-PCS; 2017-07-24)
PROC: F07Z8ZZ Transfer Training Treatment (ICD-10-PCS; 2017-07-24)
PROC: F08Z0ZZ Bathing/Showering Techniques Treatment (ICD-10-PCS; 2017-07-24)
PROC: F08Z1ZZ Dressing Techniques Treatment (ICD-10-PCS; 2017-07-24)
PROC: F08Z3ZZ Feeding/Eating Treatment (ICD-10-PCS; 2017-07-24)
PROC: F08Z4ZZ Home Management Treatment (ICD-10-PCS; 2017-07-24)
PROC: F06Z6ZZ Communicative/Cognitive Integration Skills Treatment (ICD-10-PCS; 2017-07-24)
DX: I69.354 Hemiplegia and hemiparesis following cerebral infarction affecting left non-dominant side (principal); I21.11 ST elevation (STEMI) myocardial infarction involving right coronary artery; N39.0 Urinary tract infection, site not specified; I25.119 Atherosclerotic heart disease of native coronary artery with unspecified angina pectoris; I11.9 Hypertensive heart disease without heart failure; G40.909 Epilepsy, unspecified, not intractable, without status epilepticus; B96.20 Unspecified Escherichia coli [E. coli] as the cause of diseases classified elsewhere; Z79.82 Long term (current) use of aspirin; Z79.899 Other long term (current) drug therapy; I69.318 Other symptoms and signs involving cognitive functions following cerebral infarction; R32 Unspecified urinary incontinence
CPT/HCPCS: 36415; 71046; 80053; 81003; 81015; 85025; 85610; 87040; 87077; 87086; 87186; 90686; A9270-GY; G0515-GO; J1650

== ENCOUNTER 2017-09-21 11:06 | Emergency (ER) | payer BC ==
[2017-09-21 11:42] VITALS: BP 123/80
--- NOTE | 2017-09-21 12:10 | UC ---
Skin Complaint HPI - HPI Summary HPI Summary: Pt presents with wart to the bottom of her left heel. this has been present for years. Over the last week has been increasingly painful when walking. She says that many years ago she had this removed via cryotherapy, but it returned. Denies injury. - History of Current Complaint Chief Complaint: UCLowerExtremity Time Seen by Provider: 09/21/17 11:57 Stated Complaint: FOOT COMPLAINT Hx Obtained From: Patient Onset/Duration: Gradual Onset Onset Severity: Mild Current Severity: Mild Pain Intensity: 1 Pain Scale Used: 0-10 Numeric - Allergy/Home Medications Allergies/Adverse Reactions: Allergies Allergy/AdvReac Type Severity Reaction Status Date / Time No Known Allergies Allergy Verified 09/21/17 11:34 Review of Systems Constitutional: Negative Skin: Other - Wart left heel Respiratory: Negative Cardiovascular: Negative Neurovascular: Negative Musculoskeletal: Negative Neurological: Negative Psychological: Negative All Other Systems Reviewed And Are Negative: Yes PMH/Surg Hx/FS Hx/Imm Hx Endocrine History: Dyslipidemia Cardiovascular History: Cardiac Disease, Hypertension - Surgical History Surgical History: Yes Surgery Procedure, Year, and Place: heart cath 07/16/17- no stents placed. T&A - Family History Known Family History: Negative: Hypertension, Diabetes - Social History Occupation: Retired Lives: With Family Alcohol Use: None Substance Use Type: None Smoking Status (MU): Never Smoked Tobacco - Immunization History Most Recent Influenza Vaccination: never Most Recent Pneumonia Vaccination: never Physical Exam - Summary Physical Exam Summary: GENERAL: NAD. WDWN. No pain distress. SKIN: 3mm diameter plantar wart to center of left heel. No erythema, edema, or drainage. NECK: Supple. Nontender. No lymphadenopathy. CHEST: CTAB. No r/r/w. No accessory muscle use. Breathing comfortably and in no distress. CV: RRR. Pulses intact. Brisk cap refill. NEURO: Alert. CN II-XII grossly intact. PSYCH: Age appropriate behavior. Triage Information Reviewed: Yes Vital Signs: Initial Vital Signs Temp 98.6 F 09/21/17 11:36 Pulse 68 09/21/17 11:36 Resp 18 09/21/17 11:36 BP 123/80 09/21/17 11:36 Pulse Ox 99 09/21/17 11:36 Course/Dx - Course Course Of Treatment: Plantar wart to left heel. Will try salicylic acid and refer her to podiatry for removal. - Diagnoses Provider Diagnoses: Plantar wart left heel Discharge - Sign-Out/Discharge Documenting (check all that apply): Discharge - Discharge Plan Condition: Stable Disposition: HOME Prescriptions: Salicylic Acid [Lasara-Callus Remover] 1 ml TOPICAL BID #1 bottle Patient Education Materials: Plantar Wart (ED) Referrals: Florence Newton MD [Primary Care Provider] - Michael De Santiago DPM [Doctor of Podiatric Medicine] - If Needed Additional Instructions: If you develop a fever, shortness of breath, chest pain, new or worsening symptoms - please call your PCP or go to the ED. - Billing Disposition and Condition Condition: STABLE Disposition: HOME
== END 2017-09-21 12:22 | disposition home or self-care (01) ==
LOC: UCEAST 11:06
DX: B07.0 Plantar wart (principal)
CPT/HCPCS: 99212; G0463

== ENCOUNTER 2018-01-18 07:08 | Observation (INO) | payer BC ==
[2018-01-18] MEDS ORDERED: LORazepam TAB(*) 1 MG ONE (07:54)
[2018-01-18] MEDS ORDERED: LORazepam TAB(*) 1 MG PO ONE (08:00)
[2018-01-18 08:04] LABS: ABS Basophils 0.1 10^3/ul (0-0.2); ABS Eosinophils 0.2 10^3/ul (0-0.6); ABS Lymphocytes 2.2 10^3/ul (1.0-4.8); ABS Monocytes 0.9 10^3/ul (0-0.8); ABS Neutrophils 5.7 10^3/ul (1.5-7.7); ABS Nucleated RBC 0 10^3/ul; Eosinophil % 2.6 % (0-6); Hematocrit 42 % (35-47); Hemoglobin 14.2 g/dl (12.0-16.0); Lymphocyte % 24.4 % (25-47); Mean Corpuscular HGB Conc 34 g/dl (31-36); Mean Corpuscular Hemoglobin 31 pg (27-31); Mean Corpuscular Volume 91 fL (80-97); Mean Platelet Volume 7.7 um3 (7.4-10.4); Nucleated Red Blood Cells % 0.1; Platelet Count 263 10^3/ul (150-450); Red Blood Count 4.57 10^6/ul (4.00-5.40); Red Cell Distribution Width 14 % (10.5-15); White Blood Count 9.1 10^3/ul (3.5-10.8)
[2018-01-18 08:19] LABS: INR 0.89 (0.77-1.02)
[2018-01-18 08:20] LABS: EGFR Non-African American 63.7 (>60)
[2018-01-18] MEDS ORDERED: Heparin 2 UNITS/ML IVPREMIX* 2,000 ML IV ONE (08:31)
[2018-01-18] MEDS ORDERED: Lidocaine 1% INJ* 10 MG/ML 30 ML SDV ONE (08:32)
[2018-01-18] MEDS ORDERED: Midazolam* 1 MG/ML 10 ML VIAL (10 MG) ONE (08:33)
[2018-01-18] MEDS ORDERED: fentaNYL* 50 MCG/ML 2 ML VIAL (100 MCG VIAL) ONE ×2 (08:33→10:22)
[2018-01-18] MEDS ORDERED: Iohexol 350 (CONTRAST) 200 ML MDV IV ONE (08:33)
[2018-01-18] MEDS ORDERED: nitroGLYCERIN DRIP* 25,000 MCG/250 ML BTL ONE (08:34)
[2018-01-18] MEDS ORDERED: Heparin(*) 1000 UNIT/ML 10 ML VIAL CATH LAB IV ONE (08:34)
--- NOTE | 2018-01-18 16:59 | RAD ---
CPT II Codes: G9500 Procedure(s) performed: 1. Diagnostic right lower extremity arteriogram. 2. Revascularization of occluded right superficial femoral artery. 3. Atherectomy and balloon angioplasty of the right superficial femoral artery. Date of service: January 18, 2018 Indication for procedure: Right leg claudication and rest pain Comparison: Arterial duplex sonography dated November 02, 2017 Contrast: 80 mL Omnipaque 350 Fluoroscopy Time: 23.2 minutes Vessels Accessed: Percutaneous access was obtained with ultrasound guidance in the right common femoral artery in the antegrade direction towards the foot. Catheter arteriography, with the catheter tip located within the lumen of the following arteries, was performed at the right femoral profundus, right superficial femoral artery and right popliteal artery. Anesthesia: Conscious sedation with IV Fentanyl and Versed as well as local 1% lidocaine injected locally at the arteriotomy site. Conscious sedation time: Timeout: 846 hours Case end: 1110 hours Total conscious sedation time: 2 hours and 26 minutes Additional medications: * 400 mcg IA nitroglycerin injected intermittently throughout the course of the procedure to alleviate arterial spasm. * IV heparin 3000 Units to achieve a goal ACT of 250-300. * The patient received 1 mg of p.o. Ativan prior to the onset of the procedure. PROCEDURE NOTE AND INTRAPROCEDURAL IMAGING FINDINGS: Immediately prior to the procedure the patient signed consent after thoroughly discussing all risks, benefits and alternative therapies. The patient was positioned on the fluoroscopy table in the supine position and the bilateral groins were shaved, prepped and the patient was draped in standard sterile fashion. Using fluoroscopic imaging the location of the right common femoral head was marked externally with a skin marker on the patient's groin. Utilizing sonographic guidance and palpation, the right common femoral artery was cannulated overlying the femoral head with a 21-gauge needle. An ultrasound image was saved. A microwire was slowly and smoothly advanced into the femoral profundus under fluoroscopic imaging. No buckling of the wire was visualized to indicate dissection. With the wire securing percutaneous arterial access, the needle was removed and a 5-[place]izen [place] access sheath was advanced under fluoroscopic control into the femoral profundus artery in the antegrade direction securing access. Contrast arteriogram was performed demonstrating the tip of the catheter in the femoral profundus. The microwire was drawn back and attempts were made to advance a second wire into the superficial femoral artery unsuccessfully. The sheath was removed and direct manual pressure was held for 10 minutes. Utilizing sonographic guidance and palpation, the right common femoral artery was cannulated overlying the femoral head with a 21-gauge needle. An ultrasound image was saved. A microwire was slowly and smoothly advanced into the superficial femoral artery under fluoroscopic imaging. No buckling of the wire was visualized to indicate dissection. With the wire securing percutaneous arterial access, the needle was removed and a 5-Citizen [place] access sheath was advanced under fluoroscopic control into the superficial femoral artery in the antegrade direction securing access. A contrast arteriogram was performed confirming access. Arteriography demonstrated multifocal stenoses in the proximal right superficial femoral artery. Coarse calcification was noted at the right common femoral artery by means of reflux angiography. A 0.035 inch hydrophilic wire was advanced in the superficial femoral artery and the 5-Citizen [place] access sheath was exchanged for a 7-[place]izen [place] SideArm sheath securing access. Utilizing the side arm of the access sheath arteriography was performed of the remainder of the superficial femoral and popliteal arteries. This demonstrated an approximate 10 cm occlusion of the right superficial femoral artery with reconstituted filling of the popliteal artery and proximal infrapopliteal arteries. Utilizing a 0.035 inch hydrophilic wire and a 4-[place]izen [place] straight catheter the occlusion was recannulated. The catheter was advanced until the tip was in the popliteal artery and additional arteriogram was performed showing the remainder the popliteal artery to be patent. Single-vessel runoff to the foot is provided by the anterior tibial artery which provides the majority filling of the "pedal loop". The peroneal artery is adequately patent. The posterior tibial artery becomes occluded at its distal portion. Through the 4-[place]izen [place] catheter a 0.014" Viperwire was advanced into the distal peroneal artery securing access. Over the wire a 2.4mm Sequim Atherectomy device was advanced into the superficial femoral artery and atherectomy was performed along the area of multiple stenoses in the proximal superficial femoral artery. The atherectomy device was advanced further and atherectomy was performed across the previously occluded right superficial femoral artery. At least 3 slow passes with the atherectomy device were made. Arteriogram from the access sheath was performed showing improved patency of the superficial femoral artery and no significant active extravasation. Over the wire a 4 mm x 150 mm Nanocross balloon was advanced across the previously occluded superficial femoral artery and balloon angioplasty was performed during each inflation the balloon remained inflated for minimum of 3 minutes to address vasospasm.] Arteriogram showed improved flow and no active extravasation. The patient experienced minimal pain with 4 mm balloon angioplasty. The microwire was exchanged for a 0.035 inch Bentson wire which was advanced under fluoroscopic control into the infrapopliteal arteries. Over the wire a 5 mm x 120 mm paclitaxel coated InPact balloon was advanced to the previously occluded mid-level superficial femoral artery and balloon angioplasty was performed for a total of 4 minutes. The balloon was inflated to 12 ha corresponding to an approximate diameter measurement of 5.3 mm. Utilizing the same balloon the balloon was drawn back and the entire right superficial femoral artery was balloon angioplastied, each time inflating the balloon to 13 ha and held in the inflation for a total of 3 minutes. Final arteriogram shows the SFA to be widely patent without extravasation or other acute complication. There is somewhat stagnation of the arterial flow which is suspected to be due to the partially occluding 7-Citizen [place] catheter in the right common femoral artery. Due to the coarse calcification noted at the right common femoral artery a closure device was declined. The 7-[place]izen [place] sheath was secured to the patient's groin until the ACT has normalized and the sheath will be pulled at bedside. The patient tolerated the procedure well and was transferred to angiography holding bay for standard post procedural observation. SUMMARY OF PROCEDURE, IMAGING FINDINGS AND INTERVENTIONS PERFORMED: 1. Diagnostic studies performed: * Arterial access was obtained at the right common femoral artery in the antegrade direction (i.e. towards the foot) with ultrasound guidance. A sonographic image was recorded. * Diagnostic catheter angiography (necessary to perform the appropriate interventions) was performed with the catheter tip in the right femoral profundus artery, right superficial femoral artery and right popliteal artery. * Catheter arteriography was performed of the right lower extremity arterial system from the right external iliac artery to the forefoot. 2. Interpretation of diagnostic studies performed: * There are multifocal stenoses in the proximal upper right superficial femoral artery culminating in a 10 cm occlusion of the mid-level right superficial femoral artery. * The right popliteal artery becomes occluded approximately at the mid-level right lower leg. * Single vessel runoff is provided by the anterior tibial artery, supplemented by the peroneal artery. 3. Surgical interventions performed: * Catheter and wire revascularization of the 10 cm mid-level right SFA occlusion. * Atherectomy with a 2.4 mm Sequim atherectomy device along the proximal half of the right superficial femoral artery and across the after mentioned occlusion. * The right SFA was balloon angioplastied first with a 4 mm x 150 mm Nanocross balloon followed by a 5 mm x 120 mm paclitaxel coated InPact balloon. 4. Interpretation of interventions performed: * Final arteriography demonstrated widely patency through the right superficial femoral artery into the proximal infrapopliteal arteries.. Plan: 1. Aspirin 81 mg p.o. daily for life. 2. Plavix 75 mg p.o. daily x 6 months. 3. Clinical and imaging follow-up according to standard Interventional Radiology protocol. 4. The access sheath was sutured in place and will be removed at the bedside after the ACT normalizes. Due to coarse calcification noted at the right common femoral artery utilization of a percutaneous closure device was declined.
[2018-01-18 20:47] VITALS: BP 141/79
== END 2018-01-18 21:00 | disposition home or self-care (01) ==
LOC: CHICATH 07:08 → SSU 16:14
PROVIDERS: ADMIT Radiology Diagnostic Radiology; ATTEND Radiology Diagnostic Radiology
DX: I70.223 Atherosclerosis of native arteries of extremities with rest pain, bilateral legs (principal); I10 Essential (primary) hypertension; I25.10 Atherosclerotic heart disease of native coronary artery without angina pectoris; E78.5 Hyperlipidemia, unspecified; R56.9 Unspecified convulsions
CPT/HCPCS: 36415; 76937; 80048; 85025; 85347; 85610; 85730; 99156; 99157; A9270-GY; C1724; C1725; C1769; C1887; C1894; G0378; J1644; J2250; J3010

== ENCOUNTER 2019-09-02 11:31 | Emergency (ER) | payer MEDICARE, OTHER ==
--- NOTE | 2019-09-02 12:01 | ED ---
Lower Extremity - HPI Summary HPI Summary: Patient is a 68 y/o F w/ Hx of CVA, [place] with cardiac catheterization two years ago, and right leg stent placed by Dr. Giron two years ago presents to [facility] with complaints of right foot pain. She states that the pain onset in the afternoon yesterday, 09/01/19, while she was at work. No discrete injuries noted. Patient reports having difficulty sleeping last evening secondary to the pain. Pain is currently rated a 6/10 in severity. Patient states that ambulation worsens her pain. She states that she is not on anti-coagulation therapy and denies Hx of abnormal heart rhythms. Home medications and allergies are reviewed. No fever as vitals show 98.4 F. Home Medications Medication Instructions Recorded Confirmed Type levETIRAcetam [Roweepra] 500 mg PO BID #60 tab 07/24/17 01/18/18 Rx Atorvastatin* [Lipitor 80 MG*] 80 mg PO 1700 #30 tab 08/02/17 01/18/18 Rx Metoprolol Tartrate TAB* 25 mg PO BID #60 tab 08/02/17 01/18/18 Rx [Lopressor TAB*] Nitroglycerin TAB 0.4 MG* 0.4 mg SL Q5M PRN #20 tab 08/02/17 01/18/18 Rx Vit B12/Intrinsic Fact/Folate 1,000 mcg PO DAILY 12/03/17 01/18/18 History [Intrinsi B12/Folate] Aspirin EC TAB* [Ecotrin EC Low 81 mg PO DAILY 12/06/17 01/18/18 History Dose 81 MG*] Oxybutynin Chloride [Oxybutynin 10 mg PO DAILY 12/06/17 01/18/18 History Chloride ER] Ascorbic Acid [Vitamin C] 1,000 mg PO DAILY 01/17/18 01/18/18 History Cholecalciferol (Vitamin D3) 2,000 unit PO DAILY 01/17/18 01/18/18 History [Vitamin D3] Ezetimibe TAB* [Zetia TAB*] 10 mg PO DAILY 01/17/18 01/18/18 History Braman-3 Fatty Acids/Fish Oil [Fish 1 cap PO DAILY 01/17/18 01/18/18 History Oil 1,000 mg Capsule] Clopidogrel TAB* [Plavix TAB*] 75 mg PO DAILY 01/18/18 01/18/18 History - History of Current Complaint Chief Complaint: EDExtremityLower Stated Complaint: R LEG PAIN PER PT Time Seen by Provider: 09/02/19 11:44 Hx Obtained From: Patient Onset of Pain: Hours, Prior to Arrival Onset/Duration: Still Present Severity Currently: Moderate Pain Intensity: 8 Pain Scale Used: 0-10 Numeric Timing: Lasting Hours Location: Is Discrete @ - right foot Associated Signs And Symptoms: Negative: Fever Aggravating Factor(s): Ambulation - Allergies/Home Medications Allergies/Adverse Reactions: Allergies Allergy/AdvReac Type Severity Reaction Status Date / Time No Known Allergies Allergy Verified 12/03/17 15:35 Home Medications: Home Medications levETIRAcetam [Roweepra] 500 mg PO BID #60 tab 07/24/17 [Rx Confirmed 09/02/19] Nitroglycerin TAB 0.4 MG* 0.4 mg SL Q5M PRN #20 tab 08/02/17 [Rx Confirmed 09/01] Aspirin EC TAB* [Ecotrin EC Low Dose 81 MG*] 81 mg PO DAILY 12/06/17 [History Confirmed 09/02/19] Clopidogrel TAB* [Plavix TAB*] 75 mg PO DAILY 90 Days #90 tab 09/02/19 [Rx] Cyanocobalamin TAB* [Vitamin B12 TAB*] 1,000 mcg PO DAILY 09/02/19 [History Confirmed 09/02/19] PMH/Surg Hx/FS Hx/Imm Hx Endocrine/Hematology History: Reports: Hx Diabetes Cardiovascular History: Reports: Hx Hypertension, Other Cardiovascular Problems/ Disorders - STEMI, hyperlipidemia Denies: Hx Pacemaker/ICD History: Reports: Other Problems/Disorders - UTI Sensory History: Reports: Hx Contacts or Glasses Denies: Hx Hearing Aid Opthamlomology History: Reports: Hx Contacts or Glasses Neurological History: Reports: Hx Seizures Psychiatric History: Denies: Hx Panic Disorder - Surgical History Surgery Procedure, Year, and Place: heart cath 07/16/17- no stents placed. T&A Infectious Disease History: No Infectious Disease History: Denies: Traveled Outside the [place] in Last 30 Days - Family History Known Family History: Negative: Hypertension, Diabetes - Social History Alcohol Use: None Hx Substance Use: No Substance Use Type: Reports: None Hx Tobacco Use: No Smoking Status (MU): Never Smoked Tobacco Review of Systems Negative: Fever - No fever as vitals show 98.4 F. Positive: Myalgia - right foot pain All Other Systems Reviewed And Are Negative: Yes Physical Exam - Summary Physical Exam Summary: VITAL SIGNS: Reviewed. GENERAL: Patient is a well-developed and nourished female who is lying comfortable in the stretcher. Patient is not in any acute respiratory distress. HEAD AND FACE: No signs of trauma. No ecchymosis, hematomas or skull depressions. No sinus tenderness. EYES: PERRLA, EOMI x 2, No injected conjunctiva, no nystagmus. EARS: Hearing grossly intact. Ear canals and tympanic membranes are within normal limits. MOUTH: Oropharynx within normal limits. NECK: Supple, trachea is midline, no adenopathy, no JVD, no carotid bruit, no c- spine tenderness, neck with full ROM. CHEST: Symmetric, no tenderness at palpation. LUNGS: Clear to auscultation bilaterally. No wheezing or crackles. CVS: Regular rate and rhythm, S1 and S2 present, no murmurs or gallops appreciated. ABDOMEN: Soft, non-tender. No signs of distention. No rebound, no guarding, and no masses palpated. Bowel sounds are normal. EXTREMITIES: No pulses in right foot, but good pulses in right femoral area. Leg is muddled in coloration and slightly swollen. All else normal exam findings. NEURO: Alert and oriented x 3. No acute neurological deficits. Speech is normal and follows commands. SKIN: Dry and warm. Triage Information Reviewed: Yes Vital Signs On Initial Exam: Initial Vitals Temp Pulse Resp BP Pulse Ox 98.4 F 70 18 150/84 98 09/02/19 11:34 09/02/19 11:34 09/02/19 11:34 09/02/19 11:34 09/02/19 11:34 Vital Signs Reviewed: Yes Procedures - Sedation Patient Received Moderate/Deep Sedation with Procedure: No Diagnostics - Vital Signs Vital Signs Temp Pulse Resp BP Pulse Ox 09/02/19 11:34 98.4 F 70 18 150/84 98 - Laboratory Result Diagrams: 09/02/19 12:08 09/02/19 12:08 Lab Statement: Any lab studies that have been ordered have been reviewed, and results considered in the medical decision making process. - CT CTA AORTA W/ RUNOFF CT Interpretation Completed By: Radiologist Summary of CT Findings: IMPRESSION: 1. Mixed attenuation atherosclerosis at the distal right common iliac artery causing. approximately 60% degree stenosis. 2. Long segment occlusion of the right superficial femoral artery measuring approximately. 28 cm in length. 3. There is approximately 50% degree stenosis of the left common femoral artery due to. noncalcified atherosclerosis. 4. Bilaterally there is delayed phase filling to the feet provided primarily by the. anterior tibial arteries with supplemental flow by the peroneal arteries. Bilaterally the. posterior tibial arteries become occluded at the proximal lower legs. 5. Linear density at the right lung base is most consistent with atelectasis. 6. Diverticulosis without focal inflammatory change. THIS REPORT WAS REVIEWED BY ED PHYSICIAN. Lower Extremity Course/Dx - Course Assessment/Plan: Patient is a 68 y/o F w/ Hx of CVA, [place] with cardiac catheterization two years ago, and right leg stent placed by Dr. Giron two years ago presents to [facility] with complaints of right foot pain. She states that the pain onset in the afternoon yesterday, 09/01/19, while she was at work. No discrete injuries noted. Patient reports having difficulty sleeping last evening secondary to the pain. Pain is currently rated a 6/10 in severity. Patient states that ambulation worsens her pain. She states that she is not on anti-coagulation therapy and denies Hx of abnormal heart rhythms. Home medications and allergies are reviewed. No fever as vitals show 98.4 F. 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 Unable to obtain pulses with doppler. I discussed the case with Dr. Giron. He is at the bedside. He recommends a CTA of the right lower extremity. Past medical records reviewed. Blood test w/o a significant abnormality except for WBC of 14.1, absolute neutrophils of 11.5. Dr. Giron reviewed CTA and he reports and that there is flow in the right lower extremity. Therefore he recommends for the patient to be discharged home and follow up with him on Sunday for further treatment for this patient. He came and discussed the findings and plan with the patient and the patient agrees. Patient was instructed to return to the emergency room if she develops increasing pain discoloration of the right lower extremity or any other symptom. Next time the patient understands and agrees - Diagnoses Provider Diagnoses: Arterial insufficiency of lower extremity - Physician Notifications Discussed Care Of Patient With: Jah Giron Time Discussed With Above Provider: 11:57 Instructed by Provider To: Other - Patient's case was discussed with Dr. Giron , Dr. Giron will review patient's case and call back. 1244 - Dr. Giron coming to ED to evaluate the patient. 1248 - Dr. Giron in ED to evaluate. 1255 - After evaluation, CTA of RLE recommended by Dr. Giron. 1454 - Dr. Giron states that he was able to find arterial flow to the right foot, he advises patient be discharged to home and follow up with him in three days for further treatment. Discharge ED - Sign-Out/Discharge Documenting (check all that apply): Patient Departure - discharge - Discharge Plan Condition: Stable Disposition: HOME Prescriptions: Clopidogrel TAB* [Plavix TAB*] 75 mg PO DAILY 90 Days #90 tab Patient Education Materials: Peripheral Artery Disease (ED) Referrals: Jah Giron MD [Medical Doctor] - 3 Days Additional Instructions: PLEASE RETURN TO ED FOR ANY NEW OR WORSENING SYMPTOMS. PLEASE FOLLOW UP WITH DR. GIRON THIS UPCOMING 09/05/19. - Billing Disposition and Condition Condition: STABLE Disposition: Home - Attestation Statements Document Initiated by Simran: Yes Documenting Scribe: CANDE DAILY Provider For Whom Simran is Documenting (Include Credential): MARY STEPHEN MD Scribe Attestation: CANDE Camacho, scribed for MARY STEPHEN MD on 09/03/19 at 0933. Scribe Documentation Reviewed: Yes Provider Attestation: The documentation as recorded by the CANDE morgan accurately reflects the service I personally performed and the decisions made by , MARY STEPHEN MD Status of Scribe Document: Viewed
[2019-09-02 12:18] LABS: ABS Basophils 0.1 10^3/ul (0-0.2); ABS Lymphocytes 1.3 10^3/ul (1.0-4.8); ABS Monocytes 1.2 10^3/ul (0-0.8); ABS Neutrophils 11.5 10^3/ul (1.5-7.7); Eosinophil % 0.2 %; Hematocrit 44 % (35-47); Hemoglobin 14.7 g/dL (12.0-16.0); Lymphocyte % 9.2 %; Mean Corpuscular HGB Conc 34 g/dL (31-36); Mean Corpuscular Hemoglobin 31 pg (27-31); Mean Corpuscular Volume 93 fL (80-97); Mean Platelet Volume 7.8 fL (7.4-10.4); Platelet Count 286 10^3/uL (150-450); Red Blood Count 4.71 10^6 /uL (3.70-4.87); Red Cell Distribution Width 14 % (10-15); White Blood Count 14.1 10^3/uL (3.5-10.8)
[2019-09-02 12:28] LABS: INR 1.06 (0.82-1.09)
[2019-09-02 12:44] LABS: Albumin 4.6 g/dL (3.2-5.2); Albumin/Globulin Ratio 1.6 (1-3); BUN/Creatinine Ratio 24.5 (8-20); C Reactive Protein 3.21 mg/L (<8.01); EGFR African American 72.1 (>60); EGFR Non-African American 59.6 (>60); Globulin 2.9 g/dL (2-4); Potassium 3.7 mmol/L (3.5-5.0); Total Bilirubin 0.6 mg/dL (0.2-1.0); Total Protein 7.5 g/dL (6.4-8.9)
[2019-09-02] MEDS ORDERED: Iodixanol* (CONTRAST) 320 MG/ML 100 ML SDV IV ONE (13:11)
[2019-09-02 15:16] LABS: Urine Appearance Cloudy; Urine Bilirubin Negative (Negative); Urine Blood 1+ (Negative); Urine Color Yellow; Urine Glucose Negative (Negative); Urine Ketones 1+ (Negative); Urine Nitrite Negative (Negative); Urine Protein Negative (Negative); Urine Specific Gravity 1.055 (1.010-1.030); Urine Urobilinogen Negative (Negative)
[2019-09-02 15:17] LABS: Urine Bacteria Absent (Absent); Urine Red Blood Cell 1+(3-5/hpf) (Absent); Urine Squamous Epithelial Cell Present (Absent); Urine White Blood Cell Trace(0-5/hpf) (Absent)
[2019-09-02 15:32] VITALS: BP 141/81
[2019-09-02] MEDS ORDERED: Clopidogrel TAB* 300 MG PO ONE (15:49)
[2019-09-02] MEDS ORDERED: Aspirin EC TAB* 81 MG TAB.EC PO ONE (15:49)
--- NOTE | 2019-09-02 15:55 | CONSULT ---
Consult Consult: Date of Service: 09/02/19 Reason for consultation: Right leg claudication and rest pain in a vasculopath. Requesting Service: ER, Dr. Lam HPI: Mrs. Dahl is a 68-year-old woman presented to the emergency department with new onset right leg pain when walking and when laying in bed at night. She has known vasculopathy and underwent revascularization, atherectomy and angioplasty of a 10 cm length occlusion of the right superficial femoral artery on 01/18/2018. The patient states until recently she was able to walk without any pain and began noticing the pain 24 hours ago. She denies any wounds. She states she smokes "2-3" cigarettes daily. 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 H Endocrine/Hematology History:Hx Diabetes Cardiovascular History:Hx Hypertension, STEMI, hyperlipidemia History: UTI ED Provider Documentation Neurological History: Seizures Surgical History heart cath 07/16/17- no stents placed 01/18/18: Revascularization, atherectomy and angioplasty of the right superficial femoral artery Family History Noncontributory Social History Alcohol Use: None Smoking Status: Patient reports smoking "2-3 cigarettes daily" Review of Systems Negative: Fever - No fever as vitals show 98.4 F. Positive: Myalgia - right foot pain All Other Systems Reviewed are negative unless otherwise reported in the HPI. Physical Exam: Selected Entries 09/02/19 15:32 Temperature 97.8 F Temperature Temporal Artery Source Scan Pulse Rate 90 Respiratory 20 Rate Blood Pressure 141/81 (mmHg) O2 Sat by Pulse 96 Oximetry NAD, AAO x 3 2+ pulses are palpated the bilateral common femoral arteries 1+ pulse palpated at the left popliteal artery. The right popliteal artery and neither pedal arteries are palpable. The right foot is not significantly cool to touch relative to the left Negative blanching when elevating each foot individually. Sensation is intact to light touch in the right leg and foot Motor function is grossly intact in the right lower extremity measuring 5 over 5 strength Labs: Laboratory Tests 09/02/19 09/02/19 09/02/19 12:08 12:08 12:08 WBC 14.1 H RBC 4.71 Hgb 14.7 Hct 44 INR (Anticoag Therapy) 1.06 BUN Creatinine Est GFR (Non-Af Amer) Lactic Acid 1.5 C-Reactive Protein Urine Ketones Urine Blood Urine RBC (Auto) Ur Squamous Epith Cells 09/02/19 09/02/19 12:08 15:10 WBC RBC Hgb Hct INR (Anticoag Therapy) BUN 23 Creatinine 0.94 Est GFR (Non-Af Amer) 59.6 Lactic Acid C-Reactive Protein 3.21 Urine Ketones 1+ A Urine Blood 1+ A Urine RBC (Auto) 1+(3-5/hpf) A Ur Squamous Epith Cells Present A Relevant Imaging: Patient Name: LIGIA DAHL Medical Record#: [id number] Ordering Physician: Vincent Lam MD Acct.#: [id number] : 1950 Age: 68 Sex: F Location: EMERGENCY DEPARTMENT Exam Date: 09/02/191254 ADM Status: REG ER Order Information: CTA ABD AORTA & RUNOFF Accession Number: [id number] CPT: 94229 INDICATION: Resumption of right leg claudication and rest pain in a woman underwent revascularization of the right superficial femoral artery on January 18, 2018 COMPARISON: Angiographic images January 18, 2018. CT abdomen pelvis TECHNIQUE: A CT angiogram of the abdomen, pelvis and lower extremities was performed before and following arterial phase intravenous contrast enhancement with 125 mL of Visipaque 320. Delayed images of the lower legs were acquired as well. Contiguous axial sections were obtained and reconstructed in the sagittal, coronal planes and a maximum intensity projection 3-D was created. FINDINGS: Non-arterial findings: Linear density at the right lung base extending to the pleura is consistent with atelectasis. The visualized lungs are otherwise grossly clear. There are no large pleural effusions. The left lobe of the liver there is a 7 mm hypoattenuating focus that is not changed significantly since May 10, 2017 CT examination. The liver is otherwise homogenous in attenuation. The spleen, pancreas and adrenal glands appear to be within normal limits. The gallbladder is normal. The renal cortices enhance promptly and symmetrically on these arterial phase images. There is no mass or hydronephrosis. There is no pathologic distention of the small or large bowel. The normal 5 mm partially gas-filled appendix is identified in the right lower quadrant (image 130). There are distal colon diverticula but no focal inflammatory change characteristic of acute diverticulitis. Multilevel degenerative changes of the lower thoracic and lumbar spine includes loss of intervertebral disc height.There are no sinister appearing bone lesions. Arterial findings: Abdomen & Pelvis: The mildly atherosclerotic abdominal aorta and bilateral common iliac arteries do not exhibit focal aneurysmal dilatation or acute dissection. There is coarse atherosclerotic calcification extending into the bilateral common iliac arteries. On the right there is noncalcified atheroma at the distal right common iliac artery causing approximately 60% degree stenosis (series 3 image 96) but luminal patency appears to be maintained across the right iliac bifurcation and there is adequate patent flow in the internal and external iliac arteries on the right. There is more mild narrowing of the left common iliac artery but luminal patency is maintained into the left external iliac artery. The major branch vessels off of the aorta including the celiac trunk, superior mesenteric artery, bilateral renal arteries and inferior mesenteric artery are adequately patent at their origins. Right leg: There is mixed attenuation atherosclerosis at the right common femoral artery causing less than 50% degree stenosis. There is in-line flow into the femoral profundus and proximal right superficial femoral artery. There is gradual stenosis and occlusion at the proximal right superficial femoral artery (image 178) that extends into the junction of the superficial femoral artery and P1 segment of the popliteal artery (image 293). The estimated length of occlusion is 28 cm. The diminutive popliteal artery exhibits patent flow with flow into the proximal anterior tibial artery and tibioperoneal trunk. The right posterior tibial artery becomes occluded at the proximal right lower leg. On delayed phase imaging there is filling of the anterior tibial artery continuously into the dorsalis pedis artery and into the foot with a small degree of supplemental flow provided by the peroneal artery. Left leg: Mixed attenuation atherosclerosis of the left common femoral artery causes approximately 50% degree stenosis (image 146) there is in-line flow into the femoral profundus and left superficial femoral artery. At the level of Logan's canal of the left superficial femoral artery becomes increasingly diminutive due to mixed attenuation atherosclerosis but luminal patency appears to be maintained adequately. There is in-line flow into the proximal infrapopliteal arteries. Delayed phase filling to the left foot is provided mostly by the anterior tibial artery with supplemental flow provided by the peroneal artery. IMPRESSION: 1. Mixed attenuation atherosclerosis at the distal right common iliac artery causing approximately 60% degree stenosis. 2. Long segment occlusion of the right superficial femoral artery measuring approximately 28 cm in length. 3. There is approximately 50% degree stenosis of the left common femoral artery due to noncalcified atherosclerosis. 4. Bilaterally there is delayed phase filling to the feet provided primarily by the anterior tibial arteries with supplemental flow by the peroneal arteries. Bilaterally the posterior tibial arteries become occluded at the proximal lower legs. 5. Linear density at the right lung base is most consistent with atelectasis. 6. Diverticulosis without focal inflammatory change. <Electronically signed by Jah Reyes MD in [place]> 09/02/19 1531 Dictated By: Jah Reyes MD Dictated Date/Time: 09/02/19 1506 Transcribed Date/Time: 09/02/19 1506 Copy to: Summary: 68 year old woman with long segment occlusion of the right SFA with symptoms characteristic of claudication and rest pain. This does not appear to be a "cold foot" presentation. Plan & Recommendations: 1. Angiography planned for 09/05/19 with the intention to revascularize and stent the right SFA. 2. Plavix 75 mg PO daily after receiving a loading dose of 300 mg PO today. 3. ASA 81 mg PO daily. 4. The patient was carefully instructed if that her pain becomes severely worse or she observes white, blue or purple discoloration of her legs or feet she must return to the ER immediately. 5. I emphasized the direct causative relationship between cigarette smoking and flow limiting atherosclerosis and encouraged her to not smoke.
== END 2019-09-02 15:32 | disposition home or self-care (01) ==
LOC: ED 11:31
DX: E11.51 Type 2 diabetes mellitus with diabetic peripheral angiopathy without gangrene (principal); I70.213 Atherosclerosis of native arteries of extremities with intermittent claudication, bilateral legs; I70.0 Atherosclerosis of aorta; J98.11 Atelectasis; K57.30 Diverticulosis of large intestine without perforation or abscess without bleeding; I10 Essential (primary) hypertension; E78.5 Hyperlipidemia, unspecified; R56.9 Unspecified convulsions; Z79.899 Other long term (current) drug therapy
CPT/HCPCS: 36415; 75635; 80053; 81003; 81015; 83605; 85025; 85610; 86140; 86850; 86870; 86880; 86900; 86901; 87086; 99284; A9270-GY; Q9967

== ENCOUNTER → 2019-09-05 06:56 | Day surgery (SDC) | payer MEDICARE ==
[~2019-09-05 06:56] MED LIST: Heparin 2 UNITS/ML IVPREMIX* 2,000 ML IV ONE; Heparin(*) 1000 UNIT/ML 10 ML VIAL CATH LAB IV ONE; Iodixanol 320 (CONTRAST) 100 ML SDV ONE; Iohexol 350 (CONTRAST) 200 ML MDV IV ONE; LORazepam TAB(*) 1 MG ONE; Lidocaine 1% INJ* 10 MG/ML 30 ML SDV ONE; Metoprolol Tartrate IV* 1 MG/ML 5 ML VIAL ONE; Midazolam* 1 MG/ML 5 ML VIAL (5 MG) ONE; Ondansetron INJ* 2 MG/ML VIAL ONE; VERAPAMIL 2.5 MG/ML 2 ML VIAL ** 5 mg/2 ml ONE; ceFAZolin VIAL(*) VIAL ONE; fentaNYL* 50 MCG/ML 2 ML VIAL (100 MCG VIAL) ONE; hydrALAZINE IV* 20 MG/ML VIAL ONE; nitroGLYCERIN DRIP* 0 MCG/0 ML BTL ONE; nitroGLYCERIN DRIP* 25,000 MCG/250 ML BTL ONE
--- NOTE | 2019-09-05 12:42 | PN ---
Progress Note - Progress Note Date of Service: 09/05/19 SOAP: Subjective: No pain complaints at left groin or elsewhere. Feels "woozy". 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 The patient received 10 mg Hydralazine and 5 mg metoprolol at the end the procedure to reduce BP ~180/100 prior to closure. She is now mildly hypotensive, but mentating and responsive. Plan: 1. Monitor patient and blood pressure. 2. Poor arterial flow in foot is likely to due infrapopliteal disease and hypotension. The rest pain has improved from prior to revascularization. Will watch for improved perfusion.
[2019-09-05 16:12] VITALS: BP 140/99
--- NOTE | 2019-09-05 16:31 | PN ---
Progress Note - Progress Note Date of Service: 09/05/19 Note: Date of service: 09/05/2019 Subjective: The patient had an episode of emesis but denies nausea or further emesis since receiving Zofran 4 mg. The "woozy" feeling she had previously has resolved. 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 She denies chest pain. Patient reports of a very mild ache in the right thigh but denies pain anywhere else. She states the pain that she previously had in her right foot and ankle when laying flat is resolved. She states her right foot subjectively feels warm. Objective: Selected Entries 09/05/19 09/05/19 16:00 16:04 Heart Rate 89 Respiratory 16 Rate Blood Pressure 140/99 (mmHg) Blood Pressure 120 Mean O2 Sat by Pulse 98 Oximetry NAD, AAO x 3 PERRLA, EOMI CN 2-12 is grossly intact RRR, S1/S2 Left groin is soft, nontender 2+ pulses at bilateral DIRECTOR OF COMPLIANCE, 1+ pulse at right pop Faint but palpable 1+ pulse at the right posterior tibial artery and questionable palpable pulse at the right dorsalis pedis artery. Doppler signal is positive at the right pedal arteries. Right leg and foot has intact light touch sensation Motor function in right leg intact Assessment: 68 YOF status post pelvic and right leg arteriography, revascularization and stenting of right SFA, balloon angioplasty of right CLARY and successful closure of left common femoral arteriotomy with AngioSeal closure device. The "woozy" feeling the patient experienced has resolved likely due to gradual normalization of blood pressure. The episode of emesis shortly after the procedure was likely due to conscious sedation medications. The patient does not have nausea now and is eating and drinking without issue. Plan: 1. The patient was once again encouraged to not smoke cigarettes. 2. Discharge to home. 3. The patient will continue aspirin 81 mg and Plavix 75 mg by mouth daily. 4. Routine interventional radiology follow-up will include office visit and [facility] in one month.
== END | disposition home or self-care (01) ==
LOC: CHICATH 06:56
PROVIDERS: ATTEND Radiology Diagnostic Radiology
DX: I70.221 Atherosclerosis of native arteries of extremities with rest pain, right leg (principal); I10 Essential (primary) hypertension; I25.2 Old myocardial infarction; E78.5 Hyperlipidemia, unspecified; E11.9 Type 2 diabetes mellitus without complications; Z87.891 Personal history of nicotine dependence
CPT/HCPCS: 75736; 76937; 85347; 99156; 99157; A9270-GY; C1725; C1760; C1769; C1876; C1887; C1894; J0360; J0690; J1644; J2250; J2405; J3010; J3490